=== PATIENT | male | born 1970 | race Caucasian/White ===

== ENCOUNTER 2018-10-13 17:17 | Emergency (ER) | payer OTHER, SELFPAY ==
[2018-10-13 17:18] VITALS: BP 188/110; PULSE 91; RESP 18; TEMP 36.1; O2SAT 99; BMI 31.7
[2018-10-13] MEDS: Naproxen 500 MG Tablet PO (18:03)
--- NOTE | 2018-10-13 18:05 | ED.VISSUMM ---
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 Today a bottle of diesel additive fell over onto his foot around 1130. He noted some itching and burning to his foot. Tonight he noted swelling and some blisters. Product per his report is called [employer] diesel additives. Patient is borderline diabetic with a history of hypertension. Physical Examination: Vital signs significant for blood pressure of 188/110. Patient sitting upright in bed no acute distress. Right lower extremity examination was mild erythema and edema to the toes of the right foot. There are a few superficial ulcerations noted on the anterior second and third toes with a blister noted to the lateral aspect of the second toe. Test Results: [] Emergency Department Course and Treatment: I spoke with poison control. The online safety data sheet is reviewed and it appears that hydrocarbons are the main ingredient. She states there may be some slight skin irritation from this, but should not cause any kind of erosive issues. The nielsen ingredient that she would be concerned about would be hydrofluoric acid and none of these products appear to contain this. She suggested treating the area with a topical burn and covering with antibiotics. If he worsens he is to return and if possible bring the bottle with him so that ingredients can be verified. Treatment Plan: [] Disposition: Discharge Impression: Chemical burn right foot This note was generated with [employer] dictation software. It may contain incorrect words, spelling, and punctuation that were not noted in review of the chart prior to signing ED Disposition - Plan for ED Patient: Chief Complaint: Burn Referrals: Moshe Hicks PA [Primary Care Provider] -
--- NOTE | 2018-10-13 18:09 | ED.DCSUM_ITS ---
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 Today a bottle of diesel additive fell over onto his foot around 1130. He noted some itching and burning to his foot. Tonight he noted swelling and some blisters. Product per his report is called [employer] diesel additives. Patient is borderline diabetic with a history of hypertension. Physical Examination: Vital signs significant for blood pressure of 188/110. Patient sitting upright in bed no acute distress. Right lower extremity examination was mild erythema and edema to the toes of the right foot. There are a few superficial ulcerations noted on the anterior second and third toes with a blister noted to the lateral aspect of the second toe. Test Results: [] Emergency Department Course and Treatment: I spoke with poison control. The online safety data sheet is reviewed and it appears that hydrocarbons are the main ingredient. She states there may be some slight skin irritation from this, but should not cause any kind of erosive issues. The nielsen ingredient that she would be concerned about would be hydrofluoric acid and none of these products appear to contain this. She suggested treating the area with a topical burn and covering with antibiotics. If he worsens he is to return and if possible bring the bottle with him so that ingredients can be verified. Treatment Plan: [] Disposition: Discharge Impression: Chemical burn right foot This note was generated with [employer] dictation software. It may contain incorrect words, spelling, and punctuation that were not noted in review of the chart prior to signing ED Disposition - Plan for ED Patient: Chief Complaint: Burn Referrals: Moshe Hicks PA [Primary Care Provider] -
--- NOTE | 2018-10-13 18:09 | ED.DEP ---
ED Disposition - Plan for ED Patient: Disposition: Home or Assisted Living Chief Complaint: Burn Instructions: ED Burn Chemical Prescriptions: Cephalexin [Keflex] 500 mg PO Q6 #40 capsule Naproxen [Naprosyn] 500 mg PO BID PRN PRN #20 tablet PRN Reason: Pain Smz/Tmp Ds [Bactrim Ds] 1 tablet PO BID #14 tablet Referrals: Jon Donato DO [COURTESY STAFF PHYSICIAN] - 5-7 Days
[2018-10-13] MEDS: Smz/Tmp Ds Tablet 1 TABLET PO (18:20)
[2018-10-13] MEDS: Cephalexin 250 MG Capsule 500 MG PO (18:20)
[2018-10-13 18:27] VITALS: BP 196/116; PULSE 87; RESP 18; O2SAT 94
[2018-10-13 18:33] VITALS: BP 196/116; PULSE 83; RESP 18; O2SAT 99
== END 2018-10-13 18:33 | disposition home or self-care (01) ==
PROVIDERS: Emergency Provider Emergency Medicine; Family Provider Nurse Practitioner Family; PCP Nurse Practitioner Family
DX: T65.891A Toxic effect of other specified substances, accidental (unintentional), initial encounter (principal); T25.421A Corrosion of unspecified degree of right foot, initial encounter; Y93.9 Activity, unspecified; Y92.89 Other specified places as the place of occurrence of the external cause; Y99.9 Unspecified external cause status; I10 Essential (primary) hypertension
CPT/HCPCS: 99283

== ENCOUNTER → 2019-01-27 09:10 | Outpatient (CLI) | payer OTHER, SELFPAY ==
[2019-01-27 10:41] LABS: AST(SGOT) 18 U/L (15-37); Alanine Aminotransfer ALT/SGPT 25 U/L (16-61); Albumin, Serum 3.5 g/dL (3.2-5.0); Alkaline Phosphatase 94 U/L (45-117); Anion Gap 7 (5-15); BUN 5 mg/dL (7-18); BUN/Creat Ratio 5.7 RATIO (10-20); Calcium,Total 8.7 mg/dL (8.5-10.1); Chloride 107 mmol/L (98-107); Cholesterol 142 mg/dL (200); Creatinine, Serum 0.88 mg/dL (0.70-1.30); EST Glomerular Filtration Rate 99 mL/min (>60); Est Glom Filt Rate - Afr Amer 120 mL/min (>60); Globulin 3.4 g/dL (2.2-4.2); Glucose 181 mg/dL (74-106); High Density Lipoprotein 29 mg/dL; Protein, Total 6.9 g/dL (6.4-8.2); Sodium Level 142 mmol/L (136-145); Triglycerides 291 mg/dL; Uric Acid 5.8 mg/dL (3.5-7.2); Very Low Density Lipoprotein 58 mg/dL (5-40)
== END ==
PROVIDERS: Family Provider Nurse Practitioner Family; PCP Nurse Practitioner Family; Referring Provider Nurse Practitioner Family; Visit Provider Nurse Practitioner Family
DX: E11.65 Type 2 diabetes mellitus with hyperglycemia (principal); M25.50 Pain in unspecified joint
CPT/HCPCS: 36415; 80053; 80061; 84550

== ENCOUNTER → 2019-05-11 07:51 | Outpatient (CLI) | payer OTHER, SELFPAY ==
[2019-04-06 06:23] VITALS: BMI 31.7
[2019-05-11 09:20] LABS: Hemoglobin A1c 7.7 % (4.2-6.3)
[2019-05-11 10:11] LABS: AST(SGOT) 22 U/L (15-37); Alanine Aminotransfer ALT/SGPT 25 U/L (16-61); Albumin, Serum 3.2 g/dL (3.2-5.0); Alkaline Phosphatase 98 U/L (45-117); Anion Gap 13 (5-15); BUN 8 mg/dL (7-18); BUN/Creat Ratio 11.6 RATIO (10-20); Chloride 106 mmol/L (98-107); Cholesterol 215 mg/dL (200); Creatinine, Serum 0.69 mg/dL (0.70-1.30); EST Glomerular Filtration Rate 131 mL/min (>60); Est Glom Filt Rate - Afr Amer 158 mL/min (>60); Globulin 3.1 g/dL (2.2-4.2); Glucose 240 mg/dL (74-106); High Density Lipoprotein 22 mg/dL; Potassium 4.1 mmol/L (3.5-5.1); Protein, Total 6.3 g/dL (6.4-8.2); Sodium Level 140 mmol/L (136-145); Triglycerides 1598 mg/dL; Uric Acid 5.4 mg/dL (3.5-7.2)
== END ==
PROVIDERS: Family Provider Nurse Practitioner Family; PCP Nurse Practitioner Family; Referring Provider Nurse Practitioner Family; Visit Provider Nurse Practitioner Family
DX: E11.9 Type 2 diabetes mellitus without complications (principal); E78.5 Hyperlipidemia, unspecified; M25.50 Pain in unspecified joint
CPT/HCPCS: 36415; 80053; 80061; 83036; 84550

== ENCOUNTER → 2019-06-09 09:04 | Outpatient (CLI) | payer OTHER, SELFPAY ==
[2019-04-06 06:23] VITALS: BMI 31.7
[2019-06-09 10:19] LABS: Erythrocyte Sedimentation Rate 6 mm/hr (0-15)
[2019-06-09 10:43] LABS: AST(SGOT) 7 U/L (15-37); Alanine Aminotransfer ALT/SGPT 17 U/L (16-61); Albumin, Serum 3.2 g/dL (3.2-5.0); Alkaline Phosphatase 89 U/L (45-117); Anion Gap 8 (5-15); BUN 6 mg/dL (7-18); BUN/Creat Ratio 7.7 RATIO (10-20); Calcium,Total 8.6 mg/dL (8.5-10.1); Chloride 105 mmol/L (98-107); Cholesterol 150 mg/dL (200); Creatinine, Serum 0.78 mg/dL (0.70-1.30); EST Glomerular Filtration Rate 114 mL/min (>60); Est Glom Filt Rate - Afr Amer 138 mL/min (>60); Globulin 3.3 g/dL (2.2-4.2); Glucose 182 mg/dL (74-106); High Density Lipoprotein 30 mg/dL; Potassium 3.8 mmol/L (3.5-5.1); Protein, Total 6.5 g/dL (6.4-8.2); Rheumatoid Factor < 10.0 IU/mL (<15); Sodium Level 140 mmol/L (136-145); Triglycerides 282 mg/dL; Very Low Density Lipoprotein 56 mg/dL (5-40)
[2019-06-13 11:56] LABS: ANTINUCLEAR ANTIBODIES DIRECT Negative (Negative)
== END ==
PROVIDERS: Family Provider Nurse Practitioner Family; PCP Nurse Practitioner Family; Referring Provider Nurse Practitioner Family; Visit Provider Nurse Practitioner Family
DX: R60.9 Edema, unspecified (principal); E78.5 Hyperlipidemia, unspecified; E11.9 Type 2 diabetes mellitus without complications
CPT/HCPCS: 36415; 80053; 80061; 85652; 86038; 86141; 86431

== ENCOUNTER 2019-06-25 16:22 | Observation (INO) | payer OTHER, SELFPAY ==
[2019-04-06 06:23] VITALS: BMI 31.7
[2019-06-25 16:22] VITALS: BP 168/108; PULSE 100; RESP 16; TEMP 36.7; O2SAT 98; BMI 32.8
--- NOTE | 2019-06-25 16:59 | ED.VIS.GEN ---
History of Present Illness Chief Complaint: Rash Informant: Patient, Significant Other Onset: Days, Weeks Timing: Continuous, Waxes and wanes Quality: Painful red raised rash palms and soles Location: Generalized read narrative Current Severity: Moderate Maximum Severity: Moderate Worsened by: Unknown Relieved by: Nothing Associated Symptoms: Fever and chills, hoarse voice and throat tightness Narrative: Patient is a 48-year-old male with type 2 diabetes on metformin who presents with rash that initially started 6 months ago. The rash got significant he worse on Tuesday. He reports fever, subjective, with shaking chills. He has no risk factors for SBE. He states he is concerned because this afternoon he developed lesions in his mouth feels his throat is tight and his voice is hoarse. He has had no drooling and no difficulty breathing. He denies ocular, visual auditory symptoms. He denies headache. Does complain of head pain where he has lesions. He denies neck pain or neck stiffness. He denies cardiac or respiratory symptoms. He does report nausea and vomiting diarrhea that started on Tuesday as well. He denies urologic symptoms. Prior similar symptoms: Yes Recent Illness/Hospitalization: No - Past Medical History (1) Type 2 diabetes mellitus Status: Acute (2) Essential hypertension Status: Acute Past Medical History - Allergies and Home Meds Allergies/Adverse Reactions: Allergies No Known Allergies Allergy (Verified 06/25/19 16:22) Primary Care Physician: Rebecca Britton NP-C [Primary Care Provider] - Prior records reviewed: Yes Surgical History: no surgical history Lives: Spouse/ Significant Other Smoking Status: Current some day smoker Alcohol: None, Rare Drugs: None Review of Systems General: Reports: Chills, Fever, Malaise, Subjective Eyes: Denies: Visual changes - bilaterally, Blurred Vision - bilaterally ENT: Reports: Sore throat. Denies: Bilateral ear pain Cardiovascular: Denies: Chest pain, Palpitations Gastrointestinal: Reports: Nausea, Vomiting, Diarrhea. Denies: Abdominal pain, Constipation, Melena, Hematochezia, -, - Genitourinary: Denies: Dysuria, Hematuria, Frequency Musculoskeletal: Reports: Extremity Pain. Denies: Myalgias, Arthralgias, Neck pain, Back pain, Swelling, -, - Skin: Reports: Rash, Wounds Neurological: Denies: Headache, Weakness, Parasthesia, Numbness, -, - Hematologic: Denies: Easy bruising, Easy bleeding Allergy: Reports: Swelling of the mouth. Denies: Uticaria, Swelling of the tongue Physical Exam Vital Signs/Narrative: Vital Signs Temp Pulse Resp BP Pulse Ox 06/25/19 16:22 98.1 F 100 16 168/108 H 98 Inital Vital Signs reviewed: Yes General: Well nourished, Well developed, - - Recent appears uncomfortable. Head: Normocephalic, Atraumatic Eyes: Perrl, EOMI, - - There are no subconjunctival lesions noted.. Negative for: Pale conjunctiva, Scleral icterus ENT: Moist mucous membranes, No rhinorrhea, TM's clear, - - She has lesions that are painful on the side of his tongue. There are lesions now appearing on the roof of his mouth and may be one on the buccal surface of his right cheek.. Negative for: Nasal congestion, Sinus tenderness Neck: Negative for: Supple, Nontender, No lymphadenopathy, No JVD, - - He has midline. There is no stridor. There is no carotid bruit. There is no pain the patient over the carotid artery. Cardiovascular: Regular rate, Regular rhythm, No murmurs, Normal S1, Normal S2 Respiratory: No distress, CTA bilaterally, Chest nontender Abdomen: Soft, Nontender, Nondistended, Normal bowel sounds Rectal: Deferred Back: Nontender, Normal Inspection. Negative for: CVA tenderness Extremities: No edema. Negative for: Nontender Skin: Normal color, Rash, - - She has raised erythematous pustular rash soles of his feet and palms of his hands. They are also painful lesions on his tongue. He has erythematous pustules noted popliteal fossa, anterior chest. Neurological: Alert, Oriented x3, Cranial nerves II-XII grossly intact, Normal Strength, Normal Sensation Psychological: Normal affect, Normal Mood Diagnostic/Tx/Re-eval Laboratory Results 06/25/19 06/25/19 06/25/19 17:15 17:15 17:15 WBC 8.8 RBC 4.98 Hgb 15.3 Hct 44.1 MCV 88.6 MCH 30.7 MCHC 34.7 RDW Std Deviation 41.4 RDW Coeff of Pedrito 12.6 Plt Count 260 MPV 8.8 Immature Gran % (Auto) 1.700 H Neut % (Auto) 57.1 Lymph % (Auto) 27.9 Rapides % (Auto) 6.0 Eos % (Auto) 6.8 H Baso % (Auto) 0.5 Absolute Neuts (auto) 5.0 Absolute Lymphs (auto) 2.45 Nucleated RBC % 0 ESR PT 11.8 INR 0.9 APTT 30.4 Sodium 141 Potassium 3.7 Chloride 106 Carbon Dioxide 28.0 Anion Gap 7 BUN 6 L Creatinine 0.73 Estim Creat Clear Calc 126.44 Est GFR (MDRD) Af Amer 149 Est GFR (MDRD) Non-Af 123 BUN/Creatinine Ratio 8.3 L Glucose 153 H Lactic Acid Calcium 9.1 Total Bilirubin 0.30 AST 12 L ALT 25 Alkaline Phosphatase 98 C-React Prot Ext Range Total Protein 7.0 Albumin 3.5 Globulin 3.5 Albumin/Globulin Ratio 1.0 06/25/19 06/25/19 06/25/19 17:15 17:15 17:15 WBC RBC Hgb Hct MCV MCH MCHC RDW Std Deviation RDW Coeff of Pedrito Plt Count MPV Immature Gran % (Auto) Neut % (Auto) Lymph % (Auto) Rapides % (Auto) Eos % (Auto) Baso % (Auto) Absolute Neuts (auto) Absolute Lymphs (auto) Nucleated RBC % ESR 7 PT INR APTT Sodium Potassium Chloride Carbon Dioxide Anion Gap BUN Creatinine Estim Creat Clear Calc Est GFR (MDRD) Af Amer Est GFR (MDRD) Non-Af BUN/Creatinine Ratio Glucose Lactic Acid 1.3 Calcium Total Bilirubin AST ALT Alkaline Phosphatase C-React Prot Ext Range 15.90 H Total Protein Albumin Globulin Albumin/Globulin Ratio Only abnormal lab is C-reactive protein. - Medical Decision Making Spoke with infectious disease because of the involvement of the skin as well as tongue and buccal surface of the mouth. Agreed with lab tests ordered. Agree that unroofing 1 of his pustules would be beneficial. This may represent an autoimmune, this may represent infection which is emboli. Since these are painful would not suspect secondary to endocarditis. No history of travel doubt [place] spotted fever. No children at home doubt hand foot mouth syndrome. This may represent a coxsackievirus since palms of the hand and and soles of the feet are involved. He did have dental work. He states he receives 1 g of penicillin prior to dental work because he has a prosthetic hip. She was reexamined at 2300. He now has hives left shoulder region right anterior arm. The lesions are raised erythematous and pruritic. He also has a bruise epigastric area medial left costal marginal region. He denies history of trauma. Was medicated for the painful lesions. Hospitalist was called. Case was discussed with infectious disease. ED Disposition - Plan for ED Patient: Disposition: Home or Assisted Living Diagnosis: Pustular lesion, Urticaria, Blisters of multiple sites, History of type 2 diabetes mellitus, Essential hypertension Referrals: Rebecca Britton NP-C [Primary Care Provider] -
[2019-06-25 17:24] LABS: Absolute Lymphocyte Count 2.45 X10^3/uL (0.83-4.51); Basophil# 0.04 X10^3/uL; Basophil% 0.5 % (0-1); Eosinophils% 6.8 % (0-5); Hematocrit 44.1 % (40-54); Hemoglobin 15.3 g/dL (13.0-16.5); Lymphocyte # 2.45 X10^3/ul (4.0); Lymphocyte % 27.9 % (19-41); Mean Corp Hgb Conc 34.7 g/dL (32-36); Mean Corpuscular Hgb 30.7 pg (27.0-32.0); Mean Corpuscular Volume 88.6 fL (80-94); Mean Platelet Vol. 8.8 fl (6.2-12.0); Monocyte# 0.53 X10^3/uL; NRBC Flagged by Analyzer 0 % (0-5); Neutrophil % 57.1 % (47-70); Platelet Count 260 K/mm3 (150-450); RBC Distribution Width CV 12.6 % (11.6-14.6); RBC Distribution Width SD 41.4 fl (35.1-43.9); Red Blood Count 4.98 M/mm3 (4.6-6.2); White Blood Count 8.8 K/mm3 (4.4-11.0)
[2019-06-25 17:44] LABS: AST(SGOT) 12 U/L (15-37); Alanine Aminotransfer ALT/SGPT 25 U/L (16-61); Albumin, Serum 3.5 g/dL (3.2-5.0); Alkaline Phosphatase 98 U/L (45-117); Anion Gap 7 (5-15); BUN 6 mg/dL (7-18); BUN/Creat Ratio 8.3 RATIO (10-20); Calcium,Total 9.1 mg/dL (8.5-10.1); Chloride 106 mmol/L (98-107); Creatinine, Serum 0.73 mg/dL (0.70-1.30); EST Glomerular Filtration Rate 123 mL/min (>60); Est Glom Filt Rate - Afr Amer 149 mL/min (>60); Estimated Creatinine Clearance 126.44 ml/min; Globulin 3.5 g/dL (2.2-4.2); Glucose 153 mg/dL (74-106); Potassium 3.7 mmol/L (3.5-5.1); Sodium Level 141 mmol/L (136-145)
[2019-06-25 17:58] LABS: Lactic Acid 1.3 mmol/L (0.4-2.0)
[2019-06-25 18:12] LABS: International Normalized Ratio 0.9; Prothrombin Time (Protime)PT. 11.8 SECONDS (11.7-14.9)
[2019-06-25 18:13] LABS: Partial Thromboplast Time 30.4 Seconds (24.1-36.2)
[2019-06-25 19:37] LABS: Erythrocyte Sedimentation Rate 7 mm/hr (0-15)
[2019-06-25 21:24] VITALS: BP 153/93; PULSE 98; RESP 18; O2SAT 98
--- NOTE | 2019-06-25 23:08 | HP.PCM_ITS ---
Problem List (1) Pustular lesion Status: Acute (2) Type 2 diabetes mellitus Status: Chronic History of Present Illness Date of Admission: 06/25/19 Chief Complaint: rash The patient is a 48 year old M with a significant history of diabetes mellitus; and hypertension who presented with a flare of rash that began 3 days ago. Patient reports diffuse type of rash and also multiple areas of lumps scattered throughout his entire body. Associated with his symptoms is excruciating pain in his bilateral feet and in his bilateral hands. He describes his pain as itching; burning and like a bee sting. He reported that he had so much pain in his feet that he had to be wheeled in a wheelchair while visiting his mother who was in the hospital. He reports swollen of his bilateral feet. He reports itching. He had some diarrhea recently but this has since resolved. His rash has been going on for about 6 months and multiple test and has not shown the etiology of his rash. At home he was taking some pain medicine and Benadryl. Reportedly Benadryl was helping with his itching. He reported not too long ago he had some penile yellow discharge and cloudy urine. He reported he had multiple tests including urinalysis that was unremarkable. Emergency department doctor discussed the case with infectious disease specialist; who will be following the patient inpatient. A Pustular lesion was unroofed and discharge sent to the lab for culture He has had only one sexual partner since 1996 Occupational history: Patient drives a semitruck. Past Medical History Past Medical History (Chronic Problems): Chronic Problems (Last Reviewed 06/26/19 @ 04:47 by Jonathan Monge MD) Type 2 diabetes mellitus (Chronic) Medical History: Medical History (Last Reviewed 06/26/19 @ 04:47 by Jonathan Monge MD) Arthritis M19.90 Hypertension I10 Allergies No Known Allergies Allergy (Verified 06/25/19 16:22) Home Medications: Ambulatory Orders Medication Instructions Recorded Metformin HCl 500 mg PO BID 06/25/19 Surgical History: Surgical History (Last Reviewed 06/26/19 @ 04:56 by Jonathan Monge MD) History of hip replacement Z96.649 Surgical History: herniorrhaphy Lives: Spouse/ Significant Other Smoking Status: Current every day smoker Alcohol: None, Rare Drugs: None - *Family History Maternal History Items: Heart Disease, Hypertension Paternal History Items: Diabetes, Dementia Review of Systems Constitutional: Reports: Fatigue. Denies: Chills, Fever, Weight Change HEENT: Denies: Head Aches, Sinus Congestion, Sinus Drainage Cardiovascular: Denies: Chest Pain, Palpitations Respiratory: Denies: Cough, Shortness of breath at rest, Sputum production Gastrointestinal: Reports: Diarrhea - transient, Nausea. Denies: Abdominal Pain, Vomiting Genitourinary: Denies: Dysuria Musculoskeletal: Reports: Foot Pain, Hand Pain. Denies: Joint Pain Skin: Reports: Skin Changes - Diffuse rash and lumps from head to toe. Denies: Wounds Neurological: Denies: Numbness, Tingling, Focal weakness Psychiatric: Denies: Anxiety, Depression, Homicidal Ideations, Suicidal Ideations Hematologic/ Lymphatic: Denies: Easy Bruising, Easy Bleeding VTE Information - Inpt Only VTE Present on Admission: No VTE Mechan Device Prophylaxis: None VTE Pharm Prophylaxis ordered?: Yes Patient Problems: Active and Suspected Problems (Last Reviewed 06/26/19 @ 04:47 by Jonathan Monge MD) Pustular lesion (Acute) Urticaria (Acute) Blisters of multiple sites (Acute) History of type 2 diabetes mellitus (Acute) Essential hypertension (Acute) - Physical Exam General: Alert, Oriented x3, Cooperative HEENT: Atraumatic, PERRLA, EOMI, Normocephalic Neck: Supple, No JVD, Negative Carotid Bruits Lungs: Clear to auscultation, Normal air movement Cardiovascular: Regular rate, No murmurs Abdomen: Bowel Sounds Present, Soft, Non Tender Extremities: No edema, Capillary Refill Less than 3 Seconds Skin: - - Multiple pustules from head to toe; multiple lumps from head to toe. Musculoskeletal: Tenderness - bilateral feet Neurological: Cranial nerves II-XII grossly intact Psych/Mental Status: Normal Affect, Appropriate Vital Signs Temp Pulse Resp BP Pulse Ox 98.1 F 98 18 153/93 H 98 06/25/19 16:22 06/25/19 21:24 06/25/19 21:24 06/25/19 21:24 06/25/19 21:24 Oxygen Delivery Method Room Air Weight: 100.7 kg Body Mass Index (BMI) 32.8 Laboratory Tests Past 24 Hrs 06/25/19 06/25/19 06/25/19 17:15 17:15 17:15 WBC 8.8 RBC 4.98 Hgb 15.3 Hct 44.1 MCV 88.6 MCH 30.7 MCHC 34.7 RDW Std Deviation 41.4 RDW Coeff of Pedrito 12.6 Plt Count 260 MPV 8.8 Immature Gran % (Auto) 1.700 H Neut % (Auto) 57.1 Lymph % (Auto) 27.9 [place]row % (Auto) 6.0 Eos % (Auto) 6.8 H Baso % (Auto) 0.5 Absolute Neuts (auto) 5.0 Absolute Lymphs (auto) 2.45 Nucleated RBC % 0 ESR PT 11.8 INR 0.9 APTT 30.4 Sodium 141 Potassium 3.7 Chloride 106 Carbon Dioxide 28.0 Anion Gap 7 BUN 6 L Creatinine 0.73 Estim Creat Clear Calc 126.44 Est GFR (MDRD) Af Amer 149 Est GFR (MDRD) Non-Af 123 BUN/Creatinine Ratio 8.3 L Glucose 153 H Lactic Acid Calcium 9.1 Total Bilirubin 0.30 AST 12 L ALT 25 Alkaline Phosphatase 98 C-React Prot Ext Range Total Protein 7.0 Albumin 3.5 Globulin 3.5 Albumin/Globulin Ratio 1.0 06/25/19 06/25/19 06/25/19 17:15 17:15 17:15 WBC RBC Hgb Hct MCV MCH MCHC RDW Std Deviation RDW Coeff of Pedrito Plt Count MPV Immature Gran % (Auto) Neut % (Auto) Lymph % (Auto) [place] % (Auto) Eos % (Auto) Baso % (Auto) Absolute Neuts (auto) Absolute Lymphs (auto) Nucleated RBC % ESR 7 PT INR APTT Sodium Potassium Chloride Carbon Dioxide Anion Gap BUN Creatinine Estim Creat Clear Calc Est GFR (MDRD) Af Amer Est GFR (MDRD) Non-Af BUN/Creatinine Ratio Glucose Lactic Acid 1.3 Calcium Total Bilirubin AST ALT Alkaline Phosphatase C-React Prot Ext Range 15.90 H Total Protein Albumin Globulin Albumin/Globulin Ratio Assessment/Plan All Active Problems (Last Reviewed 06/26/19 @ 04:47 by Jonathan Monge MD) Pustular lesion (Acute) Urticaria (Acute) Blisters of multiple sites (Acute) History of type 2 diabetes mellitus (Acute) Essential hypertension (Acute) The patient is a 48 year old M with a significant history of diabetes mellitus; and hypertension who presented with a flare of a pustular rash and scattered lumps in his entire body from head to toe. Acute Pustular re-occurring rash Noted to have left shift. Etiology is unclear at this time. Order to obtain records from PCPs office. KARELY with reflex antibodies ordered. RPR and gonococcus nucleic acid test ordered Blood cultures were ordered at the emergency department; follow Gram stain and culture of Fluid from rash; follow. Scheduled loratadine for antihistaminic effect ordered. PRN Benadryl ordered. Infectious disease consult. Diabetes mellitus On presentation his blood glucose was within goal. Home metformin held Accu-Chek q. CHS with correction scale insulin. Hypertension On presentation his blood pressure was not within goal. He reported that he was on amlodipine in Benzapril that he has not taken for a while. Will start patient on amlodipine. PRN hydralazine ordered. Tobacco abuse Counseled Nicotine patch ordered. DVT prophylaxis Subcutaneous Lovenox. Code Visit OBSV E&M: 66569 Initial observation care L3
[2019-06-26 00:24] VITALS: BMI 31.2; BMI 31.3
[2019-06-26 00:29] VITALS: BP 173/107; PULSE 108; RESP 16; TEMP 37; O2SAT 97
[2019-06-26] MEDS: amLODIPine 5 MG Tablet PO ×2 (01:09→10:33)
[2019-06-26] MEDS: DiphenhydrAMINE 25 MG Capsule PO ×3 (01:09→12:36)
[2019-06-26] MEDS: Loratadine 10 MG Tablet PO (01:09)
[2019-06-26] MEDS: oxyCODONE 5 MG Tablet PO ×4 (01:09→14:15)
[2019-06-26] MEDS: MELATONIN 3 MG TABLET PO (01:20)
[2019-06-26 05:25] VITALS: BP 140/97; PULSE 102; RESP 16; TEMP 36.6; O2SAT 96
[2019-06-26] MEDS: Insulin Lispro 100 UNIT/ML INSULN.PEN SC ×2 (06:58→12:38)
[2019-06-26 07:05] LABS: Bedside Glucose 163 mg/dL (70-110)
[2019-06-26 07:43] VITALS: O2SAT 95
--- NOTE | 2019-06-26 10:31 | PN_ITS ---
Patient Problems: Active and Suspected Problems (Last Reviewed 06/26/19 @ 04:47 by Jonathan Monge MD) Pustular lesion (Acute) Urticaria (Acute) Blisters of multiple sites (Acute) History of type 2 diabetes mellitus (Acute) Essential hypertension (Acute) Subjective: Presets with worsening rash. Has been off and on for the past 6 months. Started on feet, but now involving hands, scalp and trunk. Painful nodules on hand and feet. Swelling on back. No relieving nor exacerbating factors. Vitals/I&O's: Vital Signs Temp Pulse Resp BP Pulse Ox 36.6 C 102 H 16 140/97 H 95 06/26/19 05:25 06/26/19 05:25 06/26/19 05:25 06/26/19 05:25 06/26/19 07:43 Oxygen Delivery Method Room Air Weight: 96.1 kg Body Mass Index (BMI) 31.2 Intake and Output for Last 24 Hours 06/24/19 06/25/19 06/26/19 23:59 23:59 23:59 Intake Total 650 / 650 Balance 650 / 650 General: Alert, No apparent distress HEENT: Atraumatic, Normocephalic Lungs: Clear to auscultation, Normal air movement, No rhonchi, No wheeze, No rales Cardiovascular: Regular rate, Regular Rhythm, Normal S1, Normal S2, No murmurs Abdomen: Bowel Sounds Present, Soft, Non Tender, Non-Distended Extremities: No edema, No Calf Tenderness Skin: - - nodules on palmar aspects of hands and soles of feet. macular rash in axilla, trank. swelling on back and right upper buttocks. Musculoskeletal: No Tenderness to Palpation of Joints or Extremities, No Muscle Wasting Psych/Mental Status: Normal Affect, Appropriate Microbiology Past 72 Hours 06/25/19 15:40 Wound - Left Foot Gram Stain - Final Laboratory Results 06/25/19 17:15: WBC 8.8, RBC 4.98, Hgb 15.3, Hct 44.1, MCV 88.6, MCH 30.7, MCHC 34.7, RDW Std Deviation 41.4, RDW Coeff of Pedrito 12.6, Plt Count 260, MPV 8.8, Immature Gran % (Auto) 1.700 H, Neut % (Auto) 57.1, Lymph % (Auto) 27.9, Harding % (Auto) 6.0, Eos % (Auto) 6.8 H, Baso % (Auto) 0.5, Absolute Neuts (auto) 5.0, Absolute Lymphs (auto) 2.45, Nucleated RBC % 0 06/25/19 17:15: PT 11.8, INR 0.9, APTT 30.4 06/25/19 17:15: Sodium 141, Potassium 3.7, Chloride 106, Carbon Dioxide 28.0, Anion Gap 7, BUN 6 L, Creatinine 0.73, Estim Creat Clear Calc 126.44, Est GFR (MDRD) Af Amer 149, Est GFR (MDRD) Non-Af 123, BUN/Creatinine Ratio 8.3 L, Glucose 153 H, Calcium 9.1, Total Bilirubin 0.30, AST 12 L, ALT 25, Alkaline Phosphatase 98, Total Protein 7.0, Albumin 3.5, Globulin 3.5, Albumin/Globulin Ratio 1.0 06/25/19 17:15: Lactic Acid 1.3 06/25/19 17:15: ESR 7 06/25/19 17:15: C-React Prot Ext Range 15.90 H 06/26/19 05:05: RPR Pending 06/26/19 05:05: KARELY Screen Pending, PAMELA-1 Antibody Pending, SS-A/Ro IgG Antibody Pending, SS-B/La IgG Antibody Pending, Sm (Roth) Antibody Pending, RAWHIDE TRIMMER Antibody Pending, Scl-70 Scleroderma Ab Pending, Double Strand DNA Ab Pending, Centromere B Antibody Pending 06/26/19 06:52: POC Glucose 163 H Current Medications Acetaminophen (Tylenol) 650 mg PO Q6H PRN PRN PRN Reason: Mild Pain (1-3)/Temp > 100.7 F Amlodipine Besylate (Norvasc) 5 mg PO DAILY MARCI Last Admin: 06/26/19 01:09 Dose: 5 mg Documented by: Dextrose (D50w Syringe) 0 gm IV X1 PRN; Protocol PRN Reason: Hypoglycemia Diphenhydramine HCl (Benadryl) 25 mg PO Q6H PRN PRN PRN Reason: ITCHING Last Admin: 06/26/19 06:53 Dose: 25 mg Documented by: Enoxaparin Sodium (Lovenox) 40 mg SC DAILY@1000 MARCI Glucagon () 1 mg IM .X1 PRN PRN Reason: Hypoglycemia Hydralazine HCl (Apresoline Iv) 5 mg IV Q4H PRN PRN PRN Reason: sbp > 160 Insulin Human Lispro (Humalog Kwikpen (Bkc)) 0 unit SC ACHS MARCI; Protocol Last Admin: 06/26/19 06:58 Dose: 1 units Documented by: Loratadine (Claritin) 10 mg PO DAILY MARCI Last Admin: 06/26/19 01:09 Dose: 10 mg Documented by: Melatonin (Melatonin) 3 mg PO QHS PRN PRN PRN Reason: INSOMNIA Last Admin: 06/26/19 01:20 Dose: 3 mg Documented by: Nicotine (Nicoderm Cq (Pbkc)) 14 mg TRANSDERM. DAILY MARCI Last Admin: 06/26/19 05:14 Dose: 14 mg Documented by: Oxycodone HCl (Oxyir) 5 mg PO Q4H PRN PRN PRN Reason: Moderate and severe pain Last Admin: 06/26/19 10:09 Dose: 5 mg Documented by: Sodium Chloride () 10 - 40 ml IV UD PRN PRN Reason: SALINE FLUSH Medical Necessity - Tobacco Use Smoking Status: Current every day smoker Assessment/Plan All Active Problems (Last Reviewed 06/26/19 @ 04:47 by Jonathan Monge MD) Pustular lesion (Acute) Urticaria (Acute) Blisters of multiple sites (Acute) History of type 2 diabetes mellitus (Acute) Essential hypertension (Acute) 1. rash: * suspect autoimmune v allergic * await ID input * General surgery for Bx * RF and KARELY previously negative. * anti-PAMELA-1, SS-A, SS-B, Roth, RAWHIDE TRIMMER, Scl-70, DS DNA, Centromere B pending. * Start prednisone (after biopsy) * follow up with dermatology * may need referral to Rheum and allergy * Remove regular detergent, use Dreft instead. Stop fabric softeners * Epi-pen in event of anaphylaxis * continue to hold metformin, though unlike etiology * has not taken his BP med, amlodipine/benzapril in 2-3 weeks, and unlikely etiology 2. Hypertriglyceridemia * doubt contributing to above. * recommend avoiding processed foods. Greater than 40 minutes, of which greater than 50% of time was discussing work up for rash and possibilities. Code Visit OBSV E&M: 82780 Subsequent observation care L3
[2019-06-26] MEDS: Enoxaparin 40 MG/0.4 ML Syringe SC (10:33)
--- NOTE | 2019-06-26 10:51 | PCA ---
SENT REQUEST FOR MEDICAL RECORDS TO THE PHYSICANS OFFICE IN [facility] RECEIVED ANYTHING BACK AT THIS TIME
--- NOTE | 2019-06-26 11:35 | PCM.HP.ID ---
Reason for Consult: rash Consulted by: Dr. Lopez History of Present Illness: The patient is a 48 year old M with h/o DM, presented with several days of very painful burning/sharp pain on hands and feet, also sore on tongue. C/o diffuse aches throughout his body, rash/itching on back, upper arms. Has been having intermittent rash/itching/aches for past 6 months. Some chills over past few weeks, some diarrhea for past few weeks. No blood in stool, some dark/tarry stool, but has been taking peptobismal. No tick bites, does not hike/corw/spend time in tick areas. No new sex partners. Has a dog at home. 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 No kids at home. Lives with his who is asymptomatic. No consistency between length of these flares, remission between flares, and work schedule. No weight loss. Had prior foot involvement with some blistering, hand and mouth involvement is new. Rashes and aches typically resolve on their own after a period of time. Denies new meds, has not taken any abx for this. No skin biopsy. Has been seeing PCP for this, but rash is usually resolved by the time the appt comes. Does report episode about 2-3 months ago when he had some purulent drainage from his penis, and urine looked like it had tiny flecks of toilet paper floating in it. Had STI work-up which was reportedly negative. Due to pain, came to ED last night. Bcx drawn, blister was unroofed and cultured. No abx started. Full ROS performed and neg except as noted above. - Medical History Past Medical History (Chronic Problems): Chronic Problems (Last Reviewed 06/26/19 @ 04:47 by Jonathan Monge MD) Type 2 diabetes mellitus (Chronic) Allergies/Adverse Reactions: Allergies No Known Allergies Allergy (Verified 06/25/19 16:22) Home Medications: Ambulatory Orders Medication Instructions Recorded Metformin HCl 500 mg PO BID 06/25/19 - Social History Tobacco Use: cigarettes Vital Signs Temp Pulse Resp BP Pulse Ox 97.9 F 102 H 16 140/97 H 95 06/26/19 05:25 06/26/19 05:25 06/26/19 05:25 06/26/19 05:25 06/26/19 07:43 Oxygen Delivery Method Room Air Weight: 96.1 kg Body Mass Index (BMI) 31.2 Microbiology Past 72 Hours 06/25/19 15:40 Gram Stain - Final Wound - Left Foot Laboratory Tests Past 24 Hrs 06/25/19 06/25/19 06/25/19 17:15 17:15 17:15 WBC 8.8 RBC 4.98 Hgb 15.3 Hct 44.1 MCV 88.6 MCH 30.7 MCHC 34.7 RDW Std Deviation 41.4 RDW Coeff of Pedrito 12.6 Plt Count 260 MPV 8.8 Immature Gran % (Auto) 1.700 H Neut % (Auto) 57.1 Lymph % (Auto) 27.9 [place] % (Auto) 6.0 Eos % (Auto) 6.8 H Baso % (Auto) 0.5 Absolute Neuts (auto) 5.0 Absolute Lymphs (auto) 2.45 Nucleated RBC % 0 ESR PT 11.8 INR 0.9 APTT 30.4 Sodium 141 Potassium 3.7 Chloride 106 Carbon Dioxide 28.0 Anion Gap 7 BUN 6 L Creatinine 0.73 Estim Creat Clear Calc 126.44 Est GFR (MDRD) Af Amer 149 Est GFR (MDRD) Non-Af 123 BUN/Creatinine Ratio 8.3 L Glucose 153 H Lactic Acid Calcium 9.1 Total Bilirubin 0.30 AST 12 L ALT 25 Alkaline Phosphatase 98 C-React Prot Ext Range Total Protein 7.0 Albumin 3.5 Globulin 3.5 Albumin/Globulin Ratio 1.0 KARELY Screen PAMELA-1 Antibody SS-A/Ro IgG Antibody SS-B/La IgG Antibody Sm (Roth) Antibody ELECTRIC TRAIN DRIVER Antibody Scl-70 Scleroderma Ab Double Strand DNA Ab Centromere B Antibody RPR 06/25/19 06/25/19 06/25/19 17:15 17:15 17:15 WBC RBC Hgb Hct MCV MCH MCHC RDW Std Deviation RDW Coeff of Pedrito Plt Count MPV Immature Gran % (Auto) Neut % (Auto) Lymph % (Auto) [place] % (Auto) Eos % (Auto) Baso % (Auto) Absolute Neuts (auto) Absolute Lymphs (auto) Nucleated RBC % ESR 7 PT INR APTT Sodium Potassium Chloride Carbon Dioxide Anion Gap BUN Creatinine Estim Creat Clear Calc Est GFR (MDRD) Af Amer Est GFR (MDRD) Non-Af BUN/Creatinine Ratio Glucose Lactic Acid 1.3 Calcium Total Bilirubin AST ALT Alkaline Phosphatase C-React Prot Ext Range 15.90 H Total Protein Albumin Globulin Albumin/Globulin Ratio KARELY Screen PAMELA-1 Antibody SS-A/Ro IgG Antibody SS-B/La IgG Antibody Sm (Roth) Antibody ELECTRIC TRAIN DRIVER Antibody Scl-70 Scleroderma Ab Double Strand DNA Ab Centromere B Antibody RPR 06/26/19 06/26/19 05:05 05:05 WBC RBC Hgb Hct MCV MCH MCHC RDW Std Deviation RDW Coeff of Pedrito Plt Count MPV Immature Gran % (Auto) Neut % (Auto) Lymph % (Auto) [place] % (Auto) Eos % (Auto) Baso % (Auto) Absolute Neuts (auto) Absolute Lymphs (auto) Nucleated RBC % ESR PT INR APTT Sodium Potassium Chloride Carbon Dioxide Anion Gap BUN Creatinine Estim Creat Clear Calc Est GFR (MDRD) Af Amer Est GFR (MDRD) Non-Af BUN/Creatinine Ratio Glucose Lactic Acid Calcium Total Bilirubin AST ALT Alkaline Phosphatase C-React Prot Ext Range Total Protein Albumin Globulin Albumin/Globulin Ratio KARELY Screen Pending PAMELA-1 Antibody Pending SS-A/Ro IgG Antibody Pending SS-B/La IgG Antibody Pending Sm (Roth) Antibody Pending ELECTRIC TRAIN DRIVER Antibody Pending Scl-70 Scleroderma Ab Pending Double Strand DNA Ab Pending Centromere B Antibody Pending RPR Pending - Other Studies Radiology: [] Other Studies: [] Route of nutrition/ use of supplements: [] Nutritional Intake: [] IV Site: [] Young Catheter: [] - Physical Exam General: Alert, Oriented x3, Cooperative, No apparent distress HEENT: Atraumatic, PERRLA, EOMI, - - some erosion on upper palate, small ulcer on R tongue Neck: Supple, No Nodes Lungs: Clear to auscultation, Normal air movement Cardiovascular: Regular rate, Regular Rhythm, No murmurs Abdomen: Soft, Non Tender, Non-Distended Extremities: No edema Skin: - - Nonblanching, tender, pruritic macules on palms and soles. Distal feet with some bullae. Scattered dark macules on wrists and ankles with some central umbilication. Trunk and upper arms with painful pruritic red plaques, confluent over upper back. Single pustule on back below R axilla. Musculoskeletal: No Tenderness to Palpation of Joints or Extremities Neurological: Cranial nerves II-XII grossly intact - Assessment/Plan Antibiotics: [] Assessment/Plan: [] Active and Suspected Problems (Last Reviewed 06/26/19 @ 04:47 by Jonathan Monge MD) Pustular lesion (Acute) Urticaria (Acute) Blisters of multiple sites (Acute) History of type 2 diabetes mellitus (Acute) Essential hypertension (Acute) Given the timing of his symptoms and appearance of his different rashes, suspect multiple processes going on. Acute presentation may most likely be [id number] but wouldn't explain 6 months of intermittent aches, itching, rash. Will check hiv, hep C, and coxsackie. RPR and autoimmune work-up pending. Recommend skin biopsy of his back and derm referral. Agree with not starting abx. No fever, no headache, no tick bites, and no lab abnormalities, so overall low suspicion for RMSF. Will follow, thank you. D/w Dr. Lopez.
--- NOTE | 2019-06-26 11:46 | LES_PTH ---
PATIENT: SAIMA AMAYA LOC: [facility] U#:[id number] AGE/SX: 48/M ROOM: [facility]313 RE06/25/[address]: Dr. Richard Lopez DO : 1970 BED: 1 DIS: 06/26/2019 SPEC #: [id number] RECD: 06/26/19 12:12 STATUS: ANGELA REEdith #: [id number] BENJY: 06/26/19 11:[address]: Christophe Little DEPT: SURGICAL PATHOLOGY RECD BY: Sumeet Madrigal ENTERED: 06/26/19 13:20 SP TYPE: Lesion OTHR DR: MD Dr. Richard Maynard DO Dr. Joseph Agyepong, MD Dr. Robert Leininger, MD Lindsey Lorson, DRUM OPERATOR-C Tissues: Skin of back, NOS Procedures: Special Stain Group I Surgery Specimen Level IV GMS Stain (control) Comments: @ Ordering doctor for SUIV edited from to @ elvira HARPER at 06/26/19 1443 @ Submitting doctor edited from to @ by LEROY at 06/26/19 1443 HEADER OPERATION: Skin punch biopsy back, right upper PRE-OP DIAGNOSIS: Rash TISSUE SUBMITTED: Back skin punch biopsy MICROSCOPIC DIAGNOSIS Skin lesion of back, punch biopsy: Minimal superficial and perivascular chronic dermatitis. No evidence of malignancy. Negative for fungal organisms. See comment. AM:ross 06/27/19 COMMENT GMS stain with matched control supports the above diagnosis. MICROSCOPIC DESCRIPTION Slides are reviewed. GROSS DESCRIPTION Received is one container labeled with the patient's name and not further designated. The specimen consists of two punch biopsies of mancilla-white skin each measuring 0.2 cm in diameter and 0.4 cm in length. The entire specimen is submitted in one cassette. / SJ:ross 06/26/19 TC:3 CPT: 22705, 28597
[2019-06-26] MEDS: Acetaminophen 325 MG Tablet 650 MG PO (11:56)
[2019-06-26 13:35] LABS: Bedside Glucose 253 mg/dL (70-110)
--- NOTE | 2019-06-26 13:39 | PCM.CONS.GEN ---
Problem List (1) Pustular lesion Status: Acute (2) Blisters of multiple sites Status: Acute Reason for Consult Date of Consultation: 06/26/19 Reason for Consultation: Skin lesions and rash History of Present Illness: The patient is a 48 year old M who presented with rash on his back and axilla. He is also having spots forming on his hands and feet. He also has a lesion on his tongue. He does not report any fevers or chills. Past Medical History Past Medical History (Chronic Problems): Chronic Problems (Last Reviewed 06/26/19 @ 04:47 by Jonathan Monge MD) Type 2 diabetes mellitus (Chronic) Medical History: Medical History (Last Reviewed 06/26/19 @ 04:47 by Jonathan Monge MD) Arthritis M19.90 Hypertension I10 Allergies No Known Allergies Allergy (Verified 06/25/19 16:22) Home Medications: Ambulatory Orders Medication Instructions Recorded Metformin HCl 500 mg PO BID 06/25/19 Surgical History: Surgical History (Last Reviewed 06/26/19 @ 04:56 by Jonathan Monge MD) History of hip replacement Z96.649 Surgical History: herniorrhaphy Lives: Spouse/ Significant Other Smoking Status: Current every day smoker Alcohol: None, Rare Drugs: None - *Family History Maternal History Items: Heart Disease, Hypertension Paternal History Items: Diabetes, Dementia Review of Systems Constitutional: Denies: Anorexia, Chills, Fever HEENT: Denies: Difficulty Swallowing Cardiovascular: Denies: Chest Pain Respiratory: Denies: Cough, Shortness of Breath Skin: Reports: Lesions, Rash, Skin Changes Hematologic/ Lymphatic: Denies: Anemia Patient Problems: Active and Suspected Problems (Last Reviewed 06/26/19 @ 04:47 by Jonathan Monge MD) Pustular lesion (Acute) Urticaria (Acute) Blisters of multiple sites (Acute) History of type 2 diabetes mellitus (Acute) Essential hypertension (Acute) - Physical Exam General: Alert, Oriented x3 Neck: No JVD Cardiovascular: Regular rate, Regular Rhythm Abdomen: Soft, Non Tender Skin: Rash Present Musculoskeletal: No Muscle Wasting Vital Signs Temp Pulse Resp BP Pulse Ox 97.9 F 102 H 16 140/97 H 95 06/26/19 05:25 06/26/19 05:25 06/26/19 05:25 06/26/19 05:25 06/26/19 07:43 Oxygen Delivery Method Room Air Weight: 211 lb 13.828 oz Body Mass Index (BMI) 31.2 Intake and Output for Last 24 Hours 06/24/19 06/25/19 06/26/19 23:59 23:59 23:59 Intake Total 650 / 650 Balance 650 / 650 Microbiology Past 72 Hours 06/25/19 15:40 Gram Stain - Final Wound - Left Foot Wound Culture - Preliminary Gram positive organism Laboratory Tests Past 24 Hrs 06/25/19 06/25/19 06/25/19 17:15 17:15 17:15 WBC 8.8 RBC 4.98 Hgb 15.3 Hct 44.1 MCV 88.6 MCH 30.7 MCHC 34.7 RDW Std Deviation 41.4 RDW Coeff of Pedrito 12.6 Plt Count 260 MPV 8.8 Immature Gran % (Auto) 1.700 H Neut % (Auto) 57.1 Lymph % (Auto) 27.9 [place] % (Auto) 6.0 Eos % (Auto) 6.8 H Baso % (Auto) 0.5 Absolute Neuts (auto) 5.0 Absolute Lymphs (auto) 2.45 Nucleated RBC % 0 ESR PT 11.8 INR 0.9 APTT 30.4 Sodium 141 Potassium 3.7 Chloride 106 Carbon Dioxide 28.0 Anion Gap 7 BUN 6 L Creatinine 0.73 Estim Creat Clear Calc 126.44 Est GFR (MDRD) Af Amer 149 Est GFR (MDRD) Non-Af 123 BUN/Creatinine Ratio 8.3 L Glucose 153 H Lactic Acid Calcium 9.1 Total Bilirubin 0.30 AST 12 L ALT 25 Alkaline Phosphatase 98 C-React Prot Ext Range Total Protein 7.0 Albumin 3.5 Globulin 3.5 Albumin/Globulin Ratio 1.0 KARELY Screen PAMELA-1 Antibody SS-A/Ro IgG Antibody SS-B/La IgG Antibody Sm (Roth) Antibody ROTO MIXER OPERATOR Antibody Scl-70 Scleroderma Ab Double Strand DNA Ab Centromere B Antibody RPR [place] Type A(2) Ab [place] Type A(4) Ab [place] Type A(7) Ab [place] Type A(9) Ab [place] Type A(10) Ab [place] Type A(16) Ab [place] Type A Interp Hepatitis C Antibody HIV 1&2 Antibody 06/25/19 06/25/19 06/25/19 17:15 17:15 17:15 WBC RBC Hgb Hct MCV MCH MCHC RDW Std Deviation RDW Coeff of Pedrito Plt Count MPV Immature Gran % (Auto) Neut % (Auto) Lymph % (Auto) [place] % (Auto) Eos % (Auto) Baso % (Auto) Absolute Neuts (auto) Absolute Lymphs (auto) Nucleated RBC % ESR 7 PT INR APTT Sodium Potassium Chloride Carbon Dioxide Anion Gap BUN Creatinine Estim Creat Clear Calc Est GFR (MDRD) Af Amer Est GFR (MDRD) Non-Af BUN/Creatinine Ratio Glucose Lactic Acid 1.3 Calcium Total Bilirubin AST ALT Alkaline Phosphatase C-React Prot Ext Range 15.90 H Total Protein Albumin Globulin Albumin/Globulin Ratio KARELY Screen PAMELA-1 Antibody SS-A/Ro IgG Antibody SS-B/La IgG Antibody Sm (Roth) Antibody ROTO MIXER OPERATOR Antibody Scl-70 Scleroderma Ab Double Strand DNA Ab Centromere B Antibody RPR [place] Type A(2) Ab [place] Type A(4) Ab [place] Type A(7) Ab [place] Type A(9) Ab [place] Type A(10) Ab [place] Type A(16) Ab [place] Type A Interp Hepatitis C Antibody HIV 1&2 Antibody 06/26/19 06/26/19 06/26/19 05:05 05:05 12:45 WBC RBC Hgb Hct MCV MCH MCHC RDW Std Deviation RDW Coeff of Pedrito Plt Count MPV Immature Gran % (Auto) Neut % (Auto) Lymph % (Auto) [place] % (Auto) Eos % (Auto) Baso % (Auto) Absolute Neuts (auto) Absolute Lymphs (auto) Nucleated RBC % ESR PT INR APTT Sodium Potassium Chloride Carbon Dioxide Anion Gap BUN Creatinine Estim Creat Clear Calc Est GFR (MDRD) Af Amer Est GFR (MDRD) Non-Af BUN/Creatinine Ratio Glucose Lactic Acid Calcium Total Bilirubin AST ALT Alkaline Phosphatase C-React Prot Ext Range Total Protein Albumin Globulin Albumin/Globulin Ratio KARELY Screen Pending PAMELA-1 Antibody Pending SS-A/Ro IgG Antibody Pending SS-B/La IgG Antibody Pending Sm (Roth) Antibody Pending ROTO MIXER OPERATOR Antibody Pending Scl-70 Scleroderma Ab Pending Double Strand DNA Ab Pending Centromere B Antibody Pending RPR Pending [place] Type A(2) Ab [place] Type A(4) Ab [place] Type A(7) Ab [place] Type A(9) Ab [place] Type A(10) Ab [place] Type A(16) Ab [place] Type A Interp Hepatitis C Antibody Pending HIV 1&2 Antibody Pending 06/26/19 12:45 WBC RBC Hgb Hct MCV MCH MCHC RDW Std Deviation RDW Coeff of Pedrito Plt Count MPV Immature Gran % (Auto) Neut % (Auto) Lymph % (Auto) [place] % (Auto) Eos % (Auto) Baso % (Auto) Absolute Neuts (auto) Absolute Lymphs (auto) Nucleated RBC % ESR PT INR APTT Sodium Potassium Chloride Carbon Dioxide Anion Gap BUN Creatinine Estim Creat Clear Calc Est GFR (MDRD) Af Amer Est GFR (MDRD) Non-Af BUN/Creatinine Ratio Glucose Lactic Acid Calcium Total Bilirubin AST ALT Alkaline Phosphatase C-React Prot Ext Range Total Protein Albumin Globulin Albumin/Globulin Ratio KARELY Screen PAMELA-1 Antibody SS-A/Ro IgG Antibody SS-B/La IgG Antibody Sm (Roth) Antibody ROTO MIXER OPERATOR Antibody Scl-70 Scleroderma Ab Double Strand DNA Ab Centromere B Antibody RPR [place] Type A(2) Ab Pending [place] Type A(4) Ab Pending [place] Type A(7) Ab Pending [place] Type A(9) Ab Pending [place] Type A(10) Ab Pending [place] Type A(16) Ab Pending [place] Type A Interp Pending Hepatitis C Antibody HIV 1&2 Antibody POC Glucose 06/26/19 06/26/19 12:35 06:52 POC Glucose 253 H 163 H Assessment/Plan All Active Problems (Last Reviewed 06/26/19 @ 04:47 by Jonathan Monge MD) Pustular lesion (Acute) Urticaria (Acute) Blisters of multiple sites (Acute) History of type 2 diabetes mellitus (Acute) Essential hypertension (Acute) 48-year-old male with skin rash 1. The patient has a rash on his back which is excoriated and very inflamed with cellulitis and it was tender. I was asked to perform a skin biopsy of these areas. Patient also has lesions on the palms of his hands and the soles of his feet. 2. After obtaining consent an area of his back was prepped with Betadine. 2 areas were anesthetized with lidocaine and a 3 mm punch biopsy was used to take samples. These were sent for pathology. The incisions were closed with 3-0 chromic sutures and bandages were applied. Patient tolerated the procedure well. Christophe Little MD Pager: [facility] [address] [place] [address] Office:
[2019-06-26] MEDS: predniSONE 20 MG Tablet 40 MG PO (14:11)
--- NOTE | 2019-06-26 14:53 | DCINST_ITS ---
- Discharge Diagnoses Current Active Problems: Current Active and Chronic Problems (Last Reviewed 06/26/19 @ 04:47 by Jonathan Monge MD) Type 2 diabetes mellitus (Chronic) Pustular lesion (Acute) Urticaria (Acute) Blisters of multiple sites (Acute) History of type 2 diabetes mellitus (Acute) Essential hypertension (Acute) You will use the following diet at home:: Calorie/Carbohydrate Controlled (specify 1200, 1400, etc) - 1800 Your food should be the consistency of: Regular Discharge Activity: Return to Normal Activity Call your doctor if you observe: - - Worsening rash. Swelling of the lips. Trouble breathing. Allergies/Adverse Reactions: Allergies No Known Allergies Allergy (Verified 06/25/19 16:22) Medications to take at Discharge Amlodipine [Norvasc] 5 mg PO DAILY #30 tab 06/26/19 DiphenhydrAMINE [Benadryl] 25 mg PO Q6H PRN PRN capsule 06/26/19 Epi Pen (for allergic rxn) 0.3 mg IM X1 PRN #1 syringe 06/26/19 Loratadine [Claritin] 10 mg PO DAILY tablet 06/26/19 Prednisone 10 mg PO DAILY #30 tab.ds.pk 06/26/19 The following prescriptions were given: Epi Pen (for allergic rxn) 0.3 mg IM X1 PRN #1 syringe PRN Reason: angioedema/anaphylaxis Transmission Status: Pending to [facility] Amlodipine [Norvasc] 5 mg PO DAILY #30 tab Transmission Status: Pending to [facility] Prednisone 10 mg PO DAILY #30 tab.ds.pk Transmission Status: Pending to [facility] Primary Care Physician: Rebecca Britton NP-C [Primary Care Provider] - Within 1 Week Test Results: Test results from this visit will be discussed in further detail at your follow- up appointment, if applicable. Please Follow Up With: Kurtis Addison - Dermatology When: call for appointment [phone] Proposed Discharge Date: 06/26/19
--- NOTE | 2019-06-26 14:57 | DS.PCM_ITS ---
Discharge Date and Diagnosis - Problem List Patient Problems: Active and Suspected Problems (Last Reviewed 06/26/19 @ 04:47 by Jonathan Monge MD) Pustular lesion (Acute) Urticaria (Acute) Blisters of multiple sites (Acute) History of type 2 diabetes mellitus (Acute) Essential hypertension (Acute) Date of Admission: 06/25/19 Date of Discharge: 06/26/19 - Primary Discharge Diagnosis Active and Suspected Problems (Last Reviewed 06/26/19 @ 04:47 by Jonathan Monge MD) Pustular lesion (Acute) Urticaria (Acute) Blisters of multiple sites (Acute) History of type 2 diabetes mellitus (Acute) Essential hypertension (Acute) - Secondary Discharge Diagnosis Chronic Problems (Last Reviewed 06/26/19 @ 04:47 by Jontahan Monge MD) Type 2 diabetes mellitus (Chronic) Hospital Course and Treatment Saskia Little: surgery Operations: - - biopsies Summary of Care Provided: The patient is a 48 year old M presents with a rash. [] 1. rash: * suspect autoimmune v allergic * seen by ID: not felt to be infectious * General surgery performed skin biopsies. Follow up with PCP for results of biopsies as well as rheumatalgic work up. * RF and KARELY previously negative. * anti-PAMELA-1, SS-A, SS-B, Roth, SENIOR SHAREPOINT ARCHITECT, Scl-70, DS DNA, Centromere B pending. * Start prednisone (after biopsy), taper over 2 weeks * follow up with dermatology (number given for Kurtissherron Addison) * may need referral to Rheum and allergy * Remove regular detergent, use Dreft instead. Stop fabric softeners * Epi-pen in event of anaphylaxis * continue to hold metformin, though unlike etiology * has not taken his BP med, amlodipine/benzapril in 2-3 weeks, and unlikely etiology 2. Hypertriglyceridemia * doubt contributing to above. * recommend avoiding processed foods. 3. HTN: amlodipine. Patient Problems: Active and Suspected Problems (Last Reviewed 06/26/19 @ 04:47 by Jonathan Monge MD) Pustular lesion (Acute) Urticaria (Acute) Blisters of multiple sites (Acute) History of type 2 diabetes mellitus (Acute) Essential hypertension (Acute) - Physical Exam Vital Signs Temp Pulse Resp BP Pulse Ox 36.6 C 102 H 16 140/97 H 95 06/26/19 05:25 06/26/19 05:25 06/26/19 05:25 06/26/19 05:25 06/26/19 07:43 Oxygen Delivery Method Room Air Weight: 96.1 kg Body Mass Index (BMI) 31.2 Intake and Output for Last 24 Hours 06/24/19 06/25/19 06/26/19 23:59 23:59 23:59 Intake Total 650 / 650 Balance 650 / 650 Microbiology Past 72 Hours 06/25/19 15:40 Gram Stain - Final Wound - Left Foot Wound Culture - Preliminary Gram positive organism Laboratory Tests Past 24 Hrs 06/25/19 06/25/19 06/25/19 17:15 17:15 17:15 WBC 8.8 RBC 4.98 Hgb 15.3 Hct 44.1 MCV 88.6 MCH 30.7 MCHC 34.7 RDW Std Deviation 41.4 RDW Coeff of Pedrito 12.6 Plt Count 260 MPV 8.8 Immature Gran % (Auto) 1.700 H Neut % (Auto) 57.1 Lymph % (Auto) 27.9 [place] % (Auto) 6.0 Eos % (Auto) 6.8 H Baso % (Auto) 0.5 Absolute Neuts (auto) 5.0 Absolute Lymphs (auto) 2.45 Nucleated RBC % 0 ESR PT 11.8 INR 0.9 APTT 30.4 Sodium 141 Potassium 3.7 Chloride 106 Carbon Dioxide 28.0 Anion Gap 7 BUN 6 L Creatinine 0.73 Estim Creat Clear Calc 126.44 Est GFR (MDRD) Af Amer 149 Est GFR (MDRD) Non-Af 123 BUN/Creatinine Ratio 8.3 L Glucose 153 H Lactic Acid Calcium 9.1 Total Bilirubin 0.30 AST 12 L ALT 25 Alkaline Phosphatase 98 C-React Prot Ext Range Total Protein 7.0 Albumin 3.5 Globulin 3.5 Albumin/Globulin Ratio 1.0 KARELY Screen PAMELA-1 Antibody SS-A/Ro IgG Antibody SS-B/La IgG Antibody Sm (Roth) Antibody SENIOR SH[employer] ARCHITECT Antibody Scl-70 Scleroderma Ab Double Strand DNA Ab Centromere B Antibody RPR [place] Type A(2) Ab [place] Type A(4) Ab [place] Type A(7) Ab [place] Type A(9) Ab [place] Type A(10) Ab [place] Type A(16) Ab [place] Type A Interp Hepatitis C Antibody HIV 1&2 Antibody 06/25/19 06/25/19 06/25/19 17:15 17:15 17:15 WBC RBC Hgb Hct MCV MCH MCHC RDW Std Deviation RDW Coeff of Pedrito Plt Count MPV Immature Gran % (Auto) Neut % (Auto) Lymph % (Auto) [place] % (Auto) Eos % (Auto) Baso % (Auto) Absolute Neuts (auto) Absolute Lymphs (auto) Nucleated RBC % ESR 7 PT INR APTT Sodium Potassium Chloride Carbon Dioxide Anion Gap BUN Creatinine Estim Creat Clear Calc Est GFR (MDRD) Af Amer Est GFR (MDRD) Non-Af BUN/Creatinine Ratio Glucose Lactic Acid 1.3 Calcium Total Bilirubin AST ALT Alkaline Phosphatase C-React Prot Ext Range 15.90 H Total Protein Albumin Globulin Albumin/Globulin Ratio KARELY Screen PAMELA-1 Antibody SS-A/Ro IgG Antibody SS-B/La IgG Antibody Sm (Roth) Antibody SENIOR SH[employer]CHITECT Antibody Scl-70 Scleroderma Ab Double Strand DNA Ab Centromere B Antibody RPR [place] Type A(2) Ab [place] Type A(4) Ab [place] Type A(7) Ab [place] Type A(9) Ab [place] Type A(10) Ab [place] Type A(16) Ab [place] Type A Interp Hepatitis C Antibody HIV 1&2 Antibody 06/26/19 06/26/19 06/26/19 05:05 05:05 12:45 WBC RBC Hgb Hct MCV MCH MCHC RDW Std Deviation RDW Coeff of Pedrito Plt Count MPV Immature Gran % (Auto) Neut % (Auto) Lymph % (Auto) [place] % (Auto) Eos % (Auto) Baso % (Auto) Absolute Neuts (auto) Absolute Lymphs (auto) Nucleated RBC % ESR PT INR APTT Sodium Potassium Chloride Carbon Dioxide Anion Gap BUN Creatinine Estim Creat Clear Calc Est GFR (MDRD) Af Amer Est GFR (MDRD) Non-Af BUN/Creatinine Ratio Glucose Lactic Acid Calcium Total Bilirubin AST ALT Alkaline Phosphatase C-React Prot Ext Range Total Protein Albumin Globulin Albumin/Globulin Ratio KARELY Screen Pending PAMELA-1 Antibody Pending SS-A/Ro IgG Antibody Pending SS-B/La IgG Antibody Pending Sm (Roth) Antibody Pending SEN[employer] ARCHITECT Antibody Pending Scl-70 Scleroderma Ab Pending Double Strand DNA Ab Pending Centromere B Antibody Pending RPR Pending [place] Type A(2) Ab [place] Type A(4) Ab [place] Type A(7) Ab [place] Type A(9) Ab [place] Type A(10) Ab [place] Type A(16) Ab [place] Type A Interp Hepatitis C Antibody Pending HIV 1&2 Antibody Pending 06/26/19 12:45 WBC RBC Hgb Hct MCV MCH MCHC RDW Std Deviation RDW Coeff of Pedrito Plt Count MPV Immature Gran % (Auto) Neut % (Auto) Lymph % (Auto) [place] % (Auto) Eos % (Auto) Baso % (Auto) Absolute Neuts (auto) Absolute Lymphs (auto) Nucleated RBC % ESR PT INR APTT Sodium Potassium Chloride Carbon Dioxide Anion Gap BUN Creatinine Estim Creat Clear Calc Est GFR (MDRD) Af Amer Est GFR (MDRD) Non-Af BUN/Creatinine Ratio Glucose Lactic Acid Calcium Total Bilirubin AST ALT Alkaline Phosphatase C-React Prot Ext Range Total Protein Albumin Globulin Albumin/Globulin Ratio KARELY Screen PAMELA-1 Antibody SS-A/Ro IgG Antibody SS-B/La IgG Antibody Sm (Roth) Antibody SENIOR SH[employer] ARCHITECT Antibody Scl-70 Scleroderma Ab Double Strand DNA Ab Centromere B Antibody RPR [place] Type A(2) Ab Pending [place] Type A(4) Ab Pending [place] Type A(7) Ab Pending [place] Type A(9) Ab Pending [place] Type A(10) Ab Pending [place] Type A(16) Ab Pending [place] Type A Interp Pending Hepatitis C Antibody HIV 1&2 Antibody POC Glucose 06/26/19 06/26/19 12:35 06:52 POC Glucose 253 H 163 H Discharge Diet: 1800 Calorie Control Diet Discharge Activity: Return to Normal Activity Call your doctor if you observe: - - Worsening rash. Swelling of the lips. Trouble breathing. Home Medications: Medications to take at Discharge Amlodipine [Norvasc] 5 mg PO DAILY #30 tab 06/26/19 DiphenhydrAMINE [Benadryl] 25 mg PO Q6H PRN PRN capsule 06/26/19 Epi Pen (for allergic rxn) 0.3 mg IM X1 PRN #1 syringe 06/26/19 Loratadine [Claritin] 10 mg PO DAILY tablet 06/26/19 Prednisone 10 mg PO DAILY #30 tab.ds.pk 06/26/19 Following Prescrptions Were Given to Patient: Epi Pen (for allergic rxn) 0.3 mg IM X1 PRN #1 syringe PRN Reason: angioedema/anaphylaxis Transmission Status: Pending to [facility] Amlodipine [Norvasc] 5 mg PO DAILY #30 tab Transmission Status: Pending to [facility] Prednisone 10 mg PO DAILY #30 tab.ds.pk Transmission Status: Pending to [facility] Primary Care Physician: Rebecca Britton NP-C [Primary Care Provider] - Within 1 Week Please Follow Up With: Kurtis Addison - Dermatology When: call for appointment [phone] Disposition: Home Minutes spent on discharge:: 45 Patient Condition:: Fair Medical Necessity - Tobacco Use Smoking Status: Current every day smoker Meaningful Use Info Meaningful Use Diagnoses (Choose all that apply): None applicable Code Visit OBSV E&M: 49221 Observation care discharge
[2019-06-26 17:26] VITALS: BP 119/77; PULSE 92; RESP 18; TEMP 36.5; O2SAT 97
[2019-06-27 13:07] LABS: HIV - WCH Non-Reactive (Nonreactive); Hepatitis C Antibody Non-Reactive (Nonreactive)
[2019-06-27 15:54] LABS: ANTINUCLEAR ANTIBODIES DIRECT Negative (Negative)
[2019-06-29 02:39] LABS: Rapid Plasmin Reagin (RPR) NONREACTIVE (NONREACTIVE)
== END 2019-06-26 18:00 | disposition home or self-care (01) ==
LOC: ED 23:05 → MS3 06-26 00:11
PROVIDERS: Internal Medicine Infectious Disease; Admitting Provider Hospitalist; Emergency Provider Emergency Medicine; Family Provider Nurse Practitioner Family; PCP Nurse Practitioner Family
DX: L08.0 Pyoderma (principal); L50.9 Urticaria, unspecified; E11.9 Type 2 diabetes mellitus without complications; Z79.84 Long term (current) use of oral hypoglycemic drugs; E78.1 Pure hyperglyceridemia; F17.200 Nicotine dependence, unspecified, uncomplicated; I10 Essential (primary) hypertension; M19.90 Unspecified osteoarthritis, unspecified site
CPT/HCPCS: 11104; 11105; 36415; 80053; 82962; 83605; 85025; 85610; 85652; 85730; 86038; 86140; 86225; 86235; 86592; 86658; 86703; 86803; 87040; 87070; 87077; 87186; 87205; 88305; 88312; 96372; 97802; 99218; 99285; A4216; G0378

== ENCOUNTER → 2020-03-21 09:26 | Outpatient (CLI) | payer OTHER, SELFPAY ==
[2019-06-26 00:24] VITALS: BMI 31.2
--- NOTE | 2020-03-21 09:32 | MRI_ITS ---
STUDY: MRI THORACIC SPINE WITHOUT CONTRAST REASON FOR EXAM: Male, 49 years old. no known injury, c/o L hip pain and R back pain x 6 months TECHNIQUE: Standardized fat and water weighted pulse sequences were obtained in the sagittal and axial planes. COMPARISON: None. FINDINGS: Normal kyphosis of the thoracic spine. There is no substantial scoliosis. No evidence for acute fracture or other significant bony pathology. There is desiccation of the discs at T8-9 through T12-L1. There is minimal bulging of the discs at T11-12 and T12-L1 without spinal stenosis or cord compression Normal visualized thoracic cord. Normal conus medullaris that terminates at T12-L1 The soft tissue structures are unremarkable. MRI/Spine Thoracic (Routine) IMPRESSION: No evidence for acute fracture or other significant bony pathology Multilevel disc degeneration. Minimal bulging of the annuli at T11-12 and T12-L1 without spinal stenosis Electronically Signed: Danis Young MD at 16:39 EDT , Service support ,
--- NOTE | 2020-03-21 09:33 | MRI_ITS ---
STUDY: MRI LUMBAR SPINE WITHOUT CONTRAST REASON FOR EXAM: Male, 49 years old. no known injury, c/o L hip pain and R back pain x 6 months TECHNIQUE: Standardized fat and water weighted pulse sequences were obtained in the sagittal and axial planes. COMPARISON: None FINDINGS: No evidence for acute fracture or subluxation. Interosseous hemangioma within the L4 vertebral body T12-L1: Normal endplates. Normal disc height, hydration and morphology. Normal bilateral facet joints. Normal central canal and bilateral lateral recesses. Normal bilateral intervertebral neural foramina. Normal lumbar lordosis. There is no substantial scoliosis. Normal conus medullaris that terminates at T12-L1 L1-2: Normal endplates. Normal disc height, hydration and morphology. Normal bilateral facet joints. Normal central canal and bilateral lateral recesses. Normal bilateral intervertebral neural foramina. L2-3: Normal endplates. Normal disc height, hydration and morphology. Normal bilateral facet joints. Normal central canal and bilateral lateral recesses. Normal bilateral intervertebral neural foramina. L3-4: Normal endplates. Normal disc height, hydration and morphology. Normal bilateral facet joints. Normal central canal and bilateral lateral recesses. Normal bilateral intervertebral neural foramina. L4-5: Normal endplates. Normal disc height, hydration and minimal annular bulge.. Normal bilateral facet joints. Normal central canal and bilateral lateral recesses. Normal bilateral intervertebral neural foramina. L5-S1: Normal endplates. Normal disc height, hydration and morphology. Mild facet arthropathy.. Normal central canal and bilateral lateral recesses. Normal bilateral intervertebral neural foramina. Normal visualized sacral ala. Normal visualized paraspinous soft tissue structures. MRI/Spine Lumbar (Routine) IMPRESSION: Minimal annular bulge and facet arthropathy at L4-5 without stenosis. Mild facet arthropathy at L5-S1 without spinal stenosis Electronically Signed: Danis Young MD at 16:36 EDT , Service support ,
== END ==
PROVIDERS: PCP Nurse Practitioner Family; Referring Provider Orthopaedic Surgery; Visit Provider Orthopaedic Surgery
DX: M25.552 Pain in left hip (principal); M54.5 Low back pain; M16.12 Unilateral primary osteoarthritis, left hip; Z96.642 Presence of left artificial hip joint
CPT/HCPCS: 72146; 72148

== ENCOUNTER → 2020-04-18 11:44 | Outpatient (CLI) | payer OTHER, SELFPAY ==
[2019-06-26 00:24] VITALS: BMI 31.2
[2020-04-18 14:07] LABS: Hemoglobin A1c 9.2 % (3.8-5.6)
== END ==
PROVIDERS: PCP Nurse Practitioner Family; Referring Provider Nurse Practitioner Family; Visit Provider Nurse Practitioner Family
DX: E11.9 Type 2 diabetes mellitus without complications (principal)
CPT/HCPCS: 36415; 83036

== ENCOUNTER 2020-12-11 15:17 | Emergency (ER) | payer OTHER, SELFPAY ==
[2019-06-26 00:24] VITALS: BMI 31.2
[2020-12-11 15:18] VITALS: BP 156/130; PULSE 104; PULSE 105; RESP 18; TEMP 35.7; O2SAT 97; BMI 31.8
--- NOTE | 2020-12-11 15:39 | ED.VIS.GEN ---
History of Present Illness Chief Complaint: Foreign Body Informant: Patient Onset: Yesterday Context: Sudden Onset Timing: Continuous Quality: FB sens Location: right hypopharynx Current Severity: Moderate Maximum Severity: Moderate Worsened by: nothing Relieved by: coughing at times but doesn't resolve Narrative: Patient states he is trying to smoke and has been using tobacco pouches in his mouth to try to curb his cravings, yesterday he had one in his mouth and he took a Tylenol, when he swallowed the pill inadvertently swallowed the tobacco pouch, and it felt like it got stuck near the base of his tongue and his throat on the right. He has been able to pass solids and liquids, but has not been able to swallow the object. At times he feels like he gags, but is not able to mobilize it. He denies any chest symptoms or pleuritic discomfort there. - Past Medical History (1) Type 2 diabetes mellitus Status: Chronic (2) Essential hypertension Status: Chronic Past Medical History - Allergies and Home Meds Allergies/Adverse Reactions: Allergies No Known Allergies Allergy (Verified 06/25/19 16:22) Primary Care Physician: Rebecca Britton [employer], [facility] [facility] [facility] [Primary Care Provider] - Surgical History: herniorrhaphy Lives: Spouse/ Significant Other Smoking Status: Former smoker - Family History Maternal Family History: Reports: Heart Disease, Hypertension Paternal Family History: Reports: Diabetes, Dementia Review of Systems General: Denies: Chills, Fever, Sweats Eyes: Denies: Visual changes - bilaterally, Diplopia ENT: Denies: Bilateral ear pain, Rhinorrhea, Sore throat Cardiovascular: Denies: Chest pain, Palpitations Respiratory: Reports: Dyspnea - At times due to oropharyngeal sensations, Cough - At times. Denies: Dyspnea on exertion Gastrointestinal: Denies: Abdominal pain, Nausea, Vomiting, Diarrhea, Melena, Hematochezia Genitourinary: Denies: Dysuria, Hematuria, Frequency Musculoskeletal: Denies: Back pain, Extremity Pain Skin: Denies: Rash, Wounds Neurological: Denies: Headache, Weakness, Numbness Physical Exam Vital Signs/Narrative: Vital Signs Temp Pulse Resp BP Pulse Ox 12/11/20 15:18 96.3 F L 105 H 18 156/130 H 97 Inital Vital Signs reviewed: Yes General: Well nourished, Well developed, No Acute Distress Head: Normocephalic, Atraumatic Eyes: Perrl, EOMI ENT: Moist mucous membranes, No rhinorrhea, - - Posterior oropharynx clear with mild asymmetry, right Palatino tonsil more prominent than left. No stridor, trismus, hoarseness. No sublingual prominence/swelling. Neck: Supple, Nontender Cardiovascular: Regular rate, Regular rhythm, No murmurs Respiratory: No distress, CTA bilaterally, Chest nontender Neurological: Alert, Oriented x3, Cranial nerves II-XII grossly intact, Normal Strength, Normal Sensation, Normal Gait Psychological: Normal affect, Normal Mood Diagnostic/Tx/Re-eval - Medical Decision Making Discussed with otolaryngology Dr. Mckay who was on-call, who requests that the patient be sent to the office if stable, where he currently is seeing patients and has appropriate equipment to scope this patient and possibly retrieve the foreign body. He is tolerating secretions well, conversive in full sentences, and I am comfortable with his driving him over. Advised to remain n.p.o. until then. ED Disposition - Plan for ED Patient: Disposition: Home or Assisted Living Diagnosis: Foreign body in hypopharynx Instructions: ED Swallowed Foreign Body (Adult) Referrals: Richard Mckay MD [STAFF PHYSICIAN] - As soon as possible
== END 2020-12-11 15:57 | disposition home or self-care (01) ==
LOC: ED 15:49
PROVIDERS: Emergency Provider Emergency Medicine; PCP Nurse Practitioner Family
DX: T17.298A Other foreign object in pharynx causing other injury, initial encounter (principal); T65.291A Toxic effect of other tobacco and nicotine, accidental (unintentional), initial encounter; Y99.9 Unspecified external cause status; E11.9 Type 2 diabetes mellitus without complications; I10 Essential (primary) hypertension; Z82.49 Family history of ischemic heart disease and other diseases of the circulatory system; Z83.3 Family history of diabetes mellitus; Z87.891 Personal history of nicotine dependence
CPT/HCPCS: 99282

== ENCOUNTER → 2020-12-27 07:34 | Outpatient (CLI) | payer OTHER, SELFPAY ==
[2020-12-11 15:18] VITALS: BMI 31.8
[2020-12-27 09:15] LABS: AST(SGOT) 19 U/L (15-37); Alanine Aminotransfer ALT/SGPT 36 U/L (16-61); Albumin, Serum 3.5 g/dL (3.2-5.0); Alkaline Phosphatase 95 U/L (45-117); Anion Gap 8 (5-15); BUN 7 mg/dL (7-18); BUN/Creat Ratio 7.9 RATIO (10-20); Calcium,Total 8.5 mg/dL (8.5-10.1); Chloride 104 mmol/L (98-107); Cholesterol 235 mg/dL (200); Creatinine, Serum 0.89 mg/dL (0.70-1.30); EST Glomerular Filtration Rate 97 mL/min (>60); Est Glom Filt Rate - Afr Amer 117 mL/min (>60); Globulin 3.5 g/dL (2.2-4.2); Glucose 240 mg/dL (74-106); High Density Lipoprotein 24 mg/dL; Sodium Level 137 mmol/L (136-145); Triglycerides 1222 mg/dL
== END ==
LOC: LAB.FUTURE 07:37 → LAB 07:40
PROVIDERS: PCP Nurse Practitioner Family; Referring Provider Nurse Practitioner Family; Visit Provider Nurse Practitioner Family
DX: E11.9 Type 2 diabetes mellitus without complications (principal); I10 Essential (primary) hypertension; E78.1 Pure hyperglyceridemia
CPT/HCPCS: 36415; 80053; 80061; 83036

== ENCOUNTER 2021-02-11 18:25 | Emergency (ER) | payer OTHER, SELFPAY ==
[2021-02-11 18:26] VITALS: BP 189/106; PULSE 95; RESP 16; TEMP 35.8; O2SAT 100; BMI 30.2
--- NOTE | 2021-02-11 19:42 | EDS_ITS ---
HPI History of Present Illness Chief Complaint: Wound Informant: patient Onset/Context/Timing Onset: Today Context: Gradual Onset Timing: Continuous Quality: sore, swollen Location: R foot Current Severity: Moderate Maximum Severity: Severe Worsened by: walking, palpation Relieved by: rest and leaving alone Associated Symptoms Associated Symptoms: blistering from rubbing in boot, seeping clear fluid, redness Narrative Narrative: Patient is a prediabetic, he states his right foot started swelling mildly last night before going to bed, he went to work where he uses work boots that are not new, he states the swelling continued since he was on his feet all morning at work, and as result started rubbing while in his work boots. When he looked at his foot, he was very concerned about the worsening swelling, redness, increased pain, and blisters. He states all of these are from areas that were rubbing in his boot. He denies any fevers, chills, systemic symptoms. He does not check his blood sugar regularly but did check it today given all this, it was 106. Prior similar symptoms: No PFSH PFS Medical History (Updated 02/11/21 @ 22:[address] Declan Concepcion MD) Arthritis History of type 2 diabetes mellitus Hypertension Home Medications amlodipine 5 mg PO DAILY #30 tab 06/26/19 [Rx Last Taken Unknown] diphenhydramine HCl 25 mg PO Q6H PRN PRN cap 06/26/19 [Rx Last Taken Unknown] loratadine 10 mg PO DAILY tab 06/26/19 [Rx Last Taken Unknown] glipizide 5 mg PO DAILY 12/11/20 [History Last Taken Unknown] losartan 100 mg PO DAILY 12/11/20 [History Last Taken Unknown] nabumetone 750 mg PO BID 12/11/20 [History Last Taken Unknown] amoxicillin-pot clavulanate [Augmentin] 1 tab PO BID #20 tab 02/11/21 [Rx Last Taken Unknown] ciprofloxacin HCl 500 mg PO BID #20 tablet 02/11/21 [Rx Last Taken Unknown] hydrocodone-acetaminophen 1 tab PO Q6H PRN PRN 2 Days #10 tablet 02/11/21 [Rx Last Taken Unknown] Allergy/AdvReac Type Severity Reaction Status Date / Time No Known Allergies Allergy Verified 02/11/21 18:28 Surgical History History of hip replacement Social History Smoking Status: Current every day smoker alcohol intake: current ROS ROS ED Constitutional Constitutional ED: Denies chills or fever(s) Eyes Eyes: Denies change in vision or diplopia ENT ENT ED: Denies rhinorrhea or sore throat Cardiovascular Cardiovascular: Denies chest pain or palpitations Respiratory/Chest Respiratory/Chest: Denies cough or dyspnea Gastrointestinal Gastrointestinal: Denies abdominal pain, diarrhea, nausea or vomiting Genitourinary Genitourinary ED: Denies dysuria or hematuria Musculoskeletal Musculoskeletal: Reports as per HPI and extremity pain; Denies back pain or neck pain Integumentary Reports as per HPI, rash and wounds; Denies abscess Neurologic Neurologic: Denies headache(s), paresthesias or weakness Psychiatric Psychiatric: Denies anxiety or suicidal thoughts EXAM Physical Exam Const Vital Signs: 02/11/21 18:26 02/11/21 19:46 02/11/21 20:57 Temperature 96.5 F L 98.4 F 98.1 F Temperature Source Temporal Oral Temporal Pulse Rate 95 89 96 Respiratory Rate 16 18 15 Blood Pressure 189/106 H 155/96 H 150/92 H Blood Pressure Mean 133 115 111 Pulse Ox 100 96 97 Oxygen Delivery Method Room Air Room Air Room Air 02/11/21 22:07 Temperature Temperature Source Pulse Rate 63 Respiratory Rate 15 Blood Pressure 158/102 H Blood Pressure Mean 120 Pulse Ox 97 Oxygen Delivery Method Room Air Positive well nourished and well developed General Appearance ED: well developed and NAD HEENT Reports moist mucous membranes normocephalic and atraumatic Eyes PERRL and EOMs intact bilaterally Neck full ROM and supple Resp normal respiratory effort and clear to auscultation bilaterally Cardio regular rate, regular rhythm and no murmurs Rate: Negative for tachycardic GI non-tender and non-distended Auscultation: normoactive bowel sounds Palpation: soft Back/Spine no CVA tenderness General Back: other FROM Extremity no calf tenderness Extremity Narrative: Right foot diffusely swollen and erythematous, worse distally where there are broken blisters dorsal MTPJs. All diffusely mild- moderately tender. No subcutaneous emphysema. No lymphangitis. Able to move foot and ankle. No redness proximal to the ankle. Small amount of ecchymosis at the medial/tibial aspect of the forefoot near the first MTPJ, skin intact there. Patient states that this was an area that was rubbing in his boot. The plantar aspect is unremarkable and without tenderness. There is no abscess throughout the foot or ankle. General Extremety ED: Negative for edema or pulses abnormal General Extremity: Negative for edema or pulses abnormal Neuro oriented x3, CN's II-XII intact bilaterally and no sensory deficits noted Sensorium / Orientation: awake and alert Motor Exam: strength 5/5 throughout Skin no rashes or lesions noted Wounds: wounds noted drainage serous and other Nothing actively draining or expressible , no odor, surrounding erythema and other Open superficial blisters right dorsal forefoot. Dorsum of right foot erythematous and tender. No lymphangitis. MDM MDM MDM Narrative Medical decision making narrative: X-ray shows soft tissue swelling only, no subcutaneous air. He has a mild leukocytosis. The rest of his labs are unremarkable. I discussed with Dr. Page with podiatry, she reviewed photographs securely of the patient's foot in addition to the x-rays, and was comfortable with the patient being sent home on antibiotics and following up. He was given Zosyn here, will send him home on Augmentin and Cipro, as well as some pain medicine, crutches, and a work note. He is comfortable with that plan. Lab Data Attestation: I reviewed the patient's lab results. Labs: Laboratory Results - last 24 hr 02/11/21 02/11/21 02/11/21 19:54 19:54 19:54 WBC 12.6 H RBC 5.06 Hgb 15.4 Hct 44.7 MCV 88.3 MCH 30.4 MCHC 34.5 RDW Std Deviation 41.2 RDW Coeff of Pedrito 12.7 Plt Count 300 MPV 9.0 Immature Gran % (Auto) 0.600 Neut % (Auto) 67.8 Lymph % (Auto) 24.5 [place] % (Auto) 4.7 Eos % (Auto) 2.1 Baso % (Auto) 0.3 Absolute Neuts (auto) 8.6 H Absolute Lymphs (auto) 3.10 Nucleated RBC % 0 PT 12.4 INR 1.0 APTT 30.3 Sodium 140 Potassium 3.7 Chloride 108 H Carbon Dioxide 28.0 Anion Gap 4 L BUN 8 Creatinine 0.76 Estim Creat Clear Calc 118.87 Est GFR (MDRD) Af Amer 141 Est GFR (MDRD) Non-Af 116 BUN/Creatinine Ratio 10.5 Glucose 159 H Lactic Acid Calcium 8.7 Total Bilirubin 0.60 AST 4 L ALT 21 Alkaline Phosphatase 83 Total Protein 6.7 Albumin 3.6 Globulin 3.1 Albumin/Globulin Ratio 1.2 POC Glucose 02/11/21 02/11/21 19:54 20:53 WBC RBC Hgb Hct MCV MCH MCHC RDW Std Deviation RDW Coeff of Pedrito Plt Count MPV Immature Gran % (Auto) Neut % (Auto) Lymph % (Auto) [place] % (Auto) Eos % (Auto) Baso % (Auto) Absolute Neuts (auto) Absolute Lymphs (auto) Nucleated RBC % PT INR APTT Sodium Potassium Chloride Carbon Dioxide Anion Gap BUN Creatinine Estim Creat Clear Calc Est GFR (MDRD) Af Amer Est GFR (MDRD) Non-Af BUN/Creatinine Ratio Glucose Lactic Acid 0.9 Calcium Total Bilirubin AST ALT Alkaline Phosphatase Total Protein Albumin Globulin Albumin/Globulin Ratio POC Glucose 166 H Radiography Diagnostic Testing: Radiology Impression Foot X-Ray 02/11/21 20:14 IMPRESSION: Possible soft tissue swelling otherwise unremarkable exam Electronically Signed: David Spencer MD at 20:39 EDT , Service support , My interpretation 3 views of the right foot show no bony acute abnormality. Discharge Plan Triage Chief Complaint: Wound ED Provider: Declan Concepcion Dx/Rx/DC Orders Clinical Impression: Diabetic infection of right foot Instructions: ED Wound Check (Infection) Prescriptions: New amoxicillin-pot clavulanate [Augmentin] 875-125 mg tablet 1 tab PO BID Qty: 20 RF: 0 ciprofloxacin HCl 500 mg tablet 500 mg PO BID Qty: 20 RF: 0 hydrocodone-acetaminophen 5-325 mg tablet 1 tab PO Q6H PRN PRN (Reason: Pain) 2 Days Qty: 10 RF: 0 No Action amlodipine 5 MG tablet 5 mg PO DAILY Qty: 30 RF: 0 diphenhydramine HCl 25 MG capsule 25 mg PO Q6H PRN PRN (Reason: Itching) RF: 0 loratadine 10 MG tablet 10 mg PO DAILY RF: 0 nabumetone 750 MG tablet 750 mg PO BID RF: 0 losartan 100 MG tablet 100 mg PO DAILY RF: 0 glipizide 5 MG tablet 5 mg PO DAILY RF: 0 Primary Care Provider: Rebecca Britton NP Referrals: Zakia Page DPM [STAFF PHYSICIAN] - As soon as possible (call tomorrow for appt) Disposition Disposition: Home, self care
[2021-02-11 19:46] VITALS: BP 155/96; PULSE 89; RESP 18; TEMP 36.9; O2SAT 96
[2021-02-11 20:04] LABS: Absolute Neutrophil Count 8.6 X10^3/uL (2.0-7.7); Basophil# 0.04 X10^3/uL; Basophil% 0.3 % (0-1); Eosinophil# 0.27 X10^3/uL; Eosinophils% 2.1 % (0-5); Hematocrit 44.7 % (40-54); Hemoglobin 15.4 g/dL (13.0-16.5); Lymphocyte % 24.5 % (19-41); Mean Corp Hgb Conc 34.5 g/dL (32-36); Mean Corpuscular Hgb 30.4 pg (27.0-32.0); Mean Corpuscular Volume 88.3 fL (80-94); Monocyte# 0.59 X10^3/uL; Monocyte% 4.7 % (0-10); NRBC Flagged by Analyzer 0 % (0-5); Neutrophil # 8.56 X10^3/uL (2.7-7.7); Neutrophil % 67.8 % (47-70); Platelet Count 300 K/mm3 (150-450); RBC Distribution Width CV 12.7 % (11.6-14.6); RBC Distribution Width SD 41.2 fl (35.1-43.9); Red Blood Count 5.06 M/mm3 (4.6-6.2); White Blood Count 12.6 K/mm3 (4.4-11.0)
[2021-02-11] MEDS: 0.9% Normal Saline 1,000 ML 999 ML IV (20:06)
[2021-02-11 20:14] LABS: Prothrombin Time (Protime)PT. 12.4 SECONDS (11.7-14.9)
--- NOTE | 2021-02-11 20:14 | RAD_ITS ---
STUDY: X-RAY - RIGHT FOOT CLINICAL: Male, 50 years old. pain, infection TECHNIQUE: 3 view(s) of the foot. COMPARISON: None. FINDINGS: Normal talus, calcaneus, and tarsal bones. Normal visualized subtalar, talonavicular, calcaneocuboid, tarsal and tarsometatarsal articulations. Normal metatarsi. Normal metatarsophalangeal joint of the great toe. Normal tibial and fibular sesamoid bones. Normal interphalangeal joint of the great toe. Normal phalanges of the great toe. Normal second through fifth metatarsophalangeal joints. Normal interphalangeal joints and phalanges of the lesser toes. Possible soft tissue swelling. RAD/Foot min 3 Views IMPRESSION: Possible soft tissue swelling otherwise unremarkable exam Electronically Signed: David Spencer MD at 20:39 EDT , Service support ,
[2021-02-11 20:15] LABS: Partial Thromboplast Time 30.3 Seconds (24.1-36.2)
[2021-02-11 20:21] LABS: ALB/GLOB Ratio 1.2 RATIO (0.9-2.4); AST(SGOT) 4 U/L (15-37); Alanine Aminotransfer ALT/SGPT 21 U/L (16-61); Albumin, Serum 3.6 g/dL (3.2-5.0); Alkaline Phosphatase 83 U/L (45-117); Anion Gap 4 (5-15); BUN 8 mg/dL (7-18); BUN/Creat Ratio 10.5 RATIO (10-20); Calcium,Total 8.7 mg/dL (8.5-10.1); Chloride 108 mmol/L (98-107); Creatinine, Serum 0.76 mg/dL (0.70-1.30); EST Glomerular Filtration Rate 116 mL/min (>60); Est Glom Filt Rate - Afr Amer 141 mL/min (>60); Estimated Creatinine Clearance 118.87 ml/min; Globulin 3.1 g/dL (2.2-4.2); Glucose 159 mg/dL (74-106); Potassium 3.7 mmol/L (3.5-5.1); Protein, Total 6.7 g/dL (6.4-8.2); Sodium Level 140 mmol/L (136-145)
[2021-02-11 20:31] LABS: Lactic Acid 0.9 mmol/L (0.4-1.9)
[2021-02-11 20:57] VITALS: BP 150/92; PULSE 96; RESP 15; TEMP 36.7; O2SAT 97
[2021-02-11 21:01] LABS: Bedside Glucose 166 mg/dL (70-110)
[2021-02-11 22:07] VITALS: BP 158/102; PULSE 63; RESP 15; O2SAT 97
[2021-02-11] MEDS: HYDROcodone Bitartrate/Apap 5/325 Tablet PO (22:40)
[2021-02-11 22:48] VITALS: BP 154/100; PULSE 78; RESP 16; O2SAT 98
== END 2021-02-11 22:56 | disposition home or self-care (01) ==
PROVIDERS: Emergency Provider Emergency Medicine; PCP Nurse Practitioner Family
DX: L08.89 Other specified local infections of the skin and subcutaneous tissue (principal); E11.69 Type 2 diabetes mellitus with other specified complication; F17.200 Nicotine dependence, unspecified, uncomplicated
CPT/HCPCS: 73630; 80053; 82962; 83605; 85025; 85610; 85730; 87040; 96365; 99283; J7030; A4216

== ENCOUNTER → 2021-07-18 07:44 | Outpatient (CLI) | payer OTHER, SELFPAY ==
[2021-07-18 08:46] LABS: ALB/GLOB Ratio 1.1 RATIO (0.9-2.4); AST(SGOT) 28 U/L (15-37); Alanine Aminotransfer ALT/SGPT 51 U/L (16-61); Albumin, Serum 3.7 g/dL (3.2-5.0); Alkaline Phosphatase 79 U/L (45-117); Anion Gap 5 (5-15); BUN 10 mg/dL (7-18); BUN/Creat Ratio 11.9 RATIO (10-20); Chloride 102 mmol/L (98-107); Cholesterol 161 mg/dL (200); Creatinine, Serum 0.84 mg/dL (0.70-1.30); EST Glomerular Filtration Rate 103 mL/min (>60); Est Glom Filt Rate - Afr Amer 125 mL/min (>60); Globulin 3.3 g/dL (2.2-4.2); Glucose 190 mg/dL (74-106); High Density Lipoprotein 32 mg/dL; Potassium 3.9 mmol/L (3.5-5.1); Sodium Level 136 mmol/L (136-145); Triglycerides 389 mg/dL; Very Low Density Lipoprotein 78 mg/dL (5-40)
[2021-07-18 08:47] LABS: Hemoglobin A1c 8.2 % (3.8-5.6)
== END ==
PROVIDERS: PCP Nurse Practitioner Family; Referring Provider Nurse Practitioner Family; Visit Provider Nurse Practitioner Family
DX: E11.9 Type 2 diabetes mellitus without complications (principal)
CPT/HCPCS: 36415; 80053; 80061; 83036

== ENCOUNTER 2021-09-22 11:27 | Outpatient (CLI) | payer OTHER, SELFPAY ==
[2021-09-22 11:47] VITALS: BP 162/115; PULSE 120; RESP 24; TEMP 36.6; O2SAT 93; BMI 29.5
[2021-09-22] MEDS: 0.9% Saline Lock 10 ML Syringe IV (11:49)
[2021-09-22 12:48] VITALS: BP 133/104; PULSE 106; RESP 20; TEMP 36.4; O2SAT 94
[2021-09-22 13:46] VITALS: BP 141/100; PULSE 104; RESP 18; TEMP 36.8; O2SAT 94
== END 2021-09-22 13:50 | disposition home or self-care (01) ==
LOC: MS3OUT 11:28 → MS3 11:28
PROVIDERS: PCP Nurse Practitioner Family; Referring Provider Nurse Practitioner Adult Health; Visit Provider Nurse Practitioner Adult Health
DX: Z23 Encounter for immunization (principal); U07.1 COVID-19
CPT/HCPCS: J7050; M0243; A4216; Q0244

== ENCOUNTER 2021-09-23 11:17 | Inpatient (IN) | payer OTHER, SELFPAY ==
[2021-09-23] VITALS (17 sets, daily range): BP systolic 135–193; BP diastolic 82–119; PULSE 94–118; RESP 26–114; TEMP 35.6–37; O2SAT 94–100; BMI 28.8; BMI 29.6
--- NOTE | 2021-09-23 11:30 | RAD_ITS ---
STUDY: X-RAY CHEST REASON FOR EXAM: Male, 50 years old. covid TECHNIQUE: Single AP portable view of the chest. COMPARISON: Comparison is made with prior study dated 01/19/2014. FINDINGS: EKG electrodes are seen. There is elevation of the right hemidiaphragm. Increased markings are seen at both lung bases suggestive of bibasilar atelectasis and/or early infiltrate worse on the right side. Normal size heart. Normal mediastinum and terry. Normal visualized pulmonary arteries. Normal visualized aortic arch and descending thoracic aorta. Normal visualized thoracic spine. Normal visualized ribs, clavicles, and shoulders. There is no demonstrated abnormality of the visualized soft tissue structures of the upper abdomen. RAD/Chest 1 View (Portable) IMPRESSION: Increased markings at the lung bases more prominent on the right side suggestive of either bibasilar atelectasis and/or early infiltrate. Electronically Signed: Chris Brito MD at 13:04 EST , Service support ,
--- NOTE | 2021-09-23 11:32 | EDS_ITS ---
HPI HPI - URI History of Present Illness Chief Complaint: Shortness of Breath Informant: patient and spouse/S.O. Onset/Context/Timing Onset: Days Context: Gradual Onset Timing: Continuous Current Severity: Mild Maximum Severity: Moderate Associated Symptoms Associated Symptoms: Positive for Nasal Congestion, Headache, Myalgias, Nausea, Vomiting, Diarrhea, Shortness of Breath and Productive Cough Narrative Narrative: 50-year-old male unvaccinated Covid positive since the eighth. Yesterday he received monoclonal antibodies. He does have a history of diabetes and hypertension. His tested positive. He had a test to go back to work was not having any symptoms tested positive in 2 days after that he started feeling ill. He is having nausea, vomiting and diarrhea. He is feeling shortness of breath. He was on 5 days of Decadron that is now been finished. Prior similar symptoms: No Recent Illness/Hospitalization: No ROS ROS ED ROS Narrative Nausea, vomiting, diarrhea, cough and shortness of breath. Review of Systems ROS Unobtainable: Denies due to encephalopathy Constitutional Constitutional ED: Denies fever(s) Eyes Eyes: Denies change in vision ENT ENT ED: Denies ear pain Cardiovascular Cardiovascular: Denies chest pain Respiratory/Chest Respiratory/Chest: Reports cough, dyspnea and sputum Gastrointestinal Gastrointestinal: Reports diarrhea, nausea and vomiting; Denies abdominal pain, constipation or melena Genitourinary Genitourinary ED: Denies dysuria Musculoskeletal Musculoskeletal: Reports myalgias Integumentary Denies rash Neurologic Neurologic: Reports headache(s) Psychiatric Psychiatric: Denies depression Endocrine Endocrinology: Denies polyuria Hematologic/Lymphatic Hematologic/Lymphatic: Denies easy bruising Allergic/Immunologic Allergic/Immunologic ED: Denies urticaria [facility], [facility] Medical History Arthritis COVID-19 History of type 2 diabetes mellitus Hypertension Home Medications losartan 100 mg PO DAILY 12/11/20 [History Last Taken Unknown] glipizide 10 mg PO DAILY 09/22/21 [History Last Taken Unknown] loratadine 10 mg PO DAILY PRN 09/22/21 [History Last Taken Unknown] Allergy/AdvReac Type Severity Reaction Status Date / Time No Known Allergies Allergy Verified 09/23/21 11:18 Family History (Updated 09/23/21 @ 14:[address] Richard Lopez DO) Other Diabetes Surgical History History of hip replacement Social History Smoking Status: Current every day smoker tobacco type: cigarettes alcohol intake: current EXAM Physical Exam Narrative Exam Narrative: Middle-aged male vital signs stable he is afebrile. His pulse ox on percent room air no signs hypoxia. HEENT exam dry mucous membranes otherwise unremarkable. Neck nontender no meningismus. Lungs clear to auscultation. Heart tachycardic rate about 115 no murmur. Abdomen soft nontender. Moving all 4 extremities. Calves nontender no edema. Neurologically is awake and alert with no focal motor deficits. Const Vital Signs: 09/23/21 11:18 09/23/21 11:22 09/23/21 12:41 Temperature 96.1 F L 96.1 F L 98.1 F Temperature Source Temporal Temporal Temporal Pulse Rate 118 H 118 H 111 H Respiratory Rate 30 H 30 H 27 H Respiratory Effort Respiratory Depth Respiratory Pattern Blood Pressure 177/119 H 177/119 H 166/101 H Blood Pressure Mean 138 138 122 Pulse Ox 100 100 97 Oxygen Delivery Method Room Air Room Air Room Air 09/23/21 12:42 09/23/21 13:09 09/23/21 14:29 Temperature 97.3 F L 97.5 F L Temperature Source Oral Temporal Pulse Rate 112 H 106 H Respiratory Rate 26 H 28 H Respiratory Effort Short of Breath Respiratory Depth Deep Respiratory Pattern Tachypnea Blood Pressure 179/106 H 176/102 H Blood Pressure Mean 130 126 Pulse Ox 97 97 Oxygen Delivery Method Room Air Room Air Room Air Positive well nourished and well developed; Negative for obese, cachectic or contractures General Appearance ED: well developed and NAD; Negative for cachectic, contractures, cyanotic, diaphoretic or pallor Nutritional Appearance: Negative for cachectic or obese HEENT Reports dry mucous membranes; Denies moist mucous membranes normocephalic and atraumatic; Negative for scalp tenderness Face and Sinus: Negative for sinus tenderness or facial tenderness External Ear: external ears normal Mouth ED: Yes dry mucous membranes Mouth: dry mucous membranes Eyes PERRL and EOMs intact bilaterally Neck no lymphadenopathy, supple, no meningeal signs and no JVD General: Negative for anterior neck swelling or lymphadenopathy Resp normal respiratory effort and clear to auscultation bilaterally Auscultation: Negative for rales, rhonchi or wheezes Cardio S1 normal heart sound, S2 normal heart sound and no murmurs Rate: tachycardic; Negative for regular rate Rhythm: regular rhythm GI non-tender, non-distended and no masses Inspection: abdominal distention Auscultation: normoactive bowel sounds; Negative for hyperactive bowel sounds Palpation: soft; Negative for tender or guarding Back/Spine no CVA tenderness and normal ROM General Back: Negative for CVA tenderness Cervical Spine: Negative for cervical spine tenderness Extremity normal to inspection and full ROM General Extremety ED: Negative for cyanosis or tenderness General Extremity: Negative for cyanosis Neuro oriented x3 Sensorium / Orientation: alert, oriented to person, oriented to place and oriented to time; Negative for orientation impaired, lethargic or stuporous Motor Exam: strength 5/5 throughout Psych mental status grossly normal Skin General Skin Exam: Negative for jaundice or pallor Lesions: no lesions Rashes: no rashes MDM MDM MDM Narrative Medical decision making narrative: 50-year-old male day 8 Covid positive. Complaining of nausea, vomiting and diarrhea. Vital signs are stable. Clinically looks dehydrated. He received a liter of IV fluids. Toradol and Zofran. Screening labs and chest x-ray is being obtained. He will also receive IV Decadron. He has already received monoclonal antibodies. Repeat exam at 230 patient continues to improve he is had 2 L of fluid he is already been started on insulin drip will be admitted to the ICU to the hospitalist has already evaluated the patient. Lab Data Attestation: I reviewed the patient's lab results. Lab results narrative: CBC shows a white count of 16. Hemoglobin 19.6 consis tent with hemoconcentration. Platelets 232. Electrolytes show sodium 129 potassium of 5.5. His anion gap is 27 with a BUN of 31 and creatinine 1.81. Glucose is elevated at 534. Alkaline phosphatase elevated 137. Patient has moderate ketones. Consistent with DKA. Labs: Laboratory Results - last 24 hr 09/23/21 09/23/21 09/23/21 11:46 11:46 13:46 WBC 16.2 H RBC 6.59 H Hgb 19.6 H* Hct 58.7 H MCV 89.1 MCH 29.7 MCHC 33.4 RDW Std Deviation 42.2 RDW Coeff of Pedrito 12.9 Plt Count 232 MPV 10.4 Immature Gran % (Auto) 1.500 H Neut % (Auto) 85.5 H Lymph % (Auto) 8.2 L [place] % (Auto) 4.2 Eos % (Auto) 0.0 Baso % (Auto) 0.6 Absolute Neuts (auto) 13.8 H Absolute Lymphs (auto) 1.33 Nucleated RBC % 0 Differential Comment COMMENT Diff Path Review May foll Sodium 129 L Potassium 5.5 H Chloride 94 L Carbon Dioxide 8.0 L* Anion Gap 27 H BUN 31 H Creatinine 1.81 H Estim Creat Clear Calc 49.91 Est GFR (MDRD) Af Amer 52 L Est GFR (MDRD) Non-Af 43 L BUN/Creatinine Ratio 17.1 Glucose 534 H* Calcium 9.5 Total Bilirubin 0.70 AST 29 ALT 48 Alkaline Phosphatase 137 H Total Protein 9.6 H Albumin 4.0 Globulin 5.6 H Albumin/Globulin Ratio 0.7 L Acetone Level MODERATE H POC Glucose 09/23/21 13:49 WBC RBC Hgb Hct MCV MCH MCHC RDW Std Deviation RDW Coeff of Pedrito Plt Count MPV Immature Gran % (Auto) Neut % (Auto) Lymph % (Auto) [place] % (Auto) Eos % (Auto) Baso % (Auto) Absolute Neuts (auto) Absolute Lymphs (auto) Nucleated RBC % Differential Comment Diff Path Review Sodium Potassium Chloride Carbon Dioxide Anion Gap BUN Creatinine Estim Creat Clear Calc Est GFR (MDRD) Af Amer Est GFR (MDRD) Non-Af BUN/Creatinine Ratio Glucose Calcium Total Bilirubin AST ALT Alkaline Phosphatase Total Protein Albumin Globulin Albumin/Globulin Ratio Acetone Level POC Glucose 484 H* Radiography Diagnostic Testing: Clinical Impression(s) from Imaging Studies Chest X-Ray 09/23/21 11:30 IMPRESSION: Increased markings at the lung bases more prominent on the right side suggestive of either bibasilar atelectasis and/or early infiltrate. Electronically Signed: Chris Brito MD at 13:04 EST , Service support , Portable, single view interpreted by myself shows bibasilar infiltrates.. Normal cardiac silhouette. Interpreted both by myself and the radiologist. Critical Care Time Critical Care Time: Yes Critical care time (excluding procedures): 30-74 minutes, Including time spent:, Discussing w/Patient &/or Family/Infection Control Rn, Discussing w/Consultants, Arranging Admission or Transfer, Performing Direct Patient Care at Bedside and - (33 min) Discharge Plan Dx/Rx/DC Orders Clinical Impression: COVID-19, Type 2 diabetes mellitus, Acute dehydration, Acute kidney injury, DKA (diabetic ketoacidosis) Disposition Disposition: Acute Care Hospital [facility]
[2021-09-23 11:51] LABS: Absolute Lymphocyte Count 1.33 X10^3/uL (0.83-4.51); Absolute Neutrophil Count 13.8 X10^3/uL (2.0-7.7); Basophil% 0.6 % (0-1); Lymphocyte # 1.33 X10^3/ul (0.83-4.51); Lymphocyte % 8.2 % (19-41); Mean Corp Hgb Conc 33.4 g/dL (32-36); Mean Corpuscular Hgb 29.7 pg (27.0-32.0); Mean Corpuscular Volume 89.1 fL (80-94); Mean Platelet Vol. 10.4 fl (6.2-12.0); Monocyte# 0.68 X10^3/uL; Monocyte% 4.2 % (0-10); NRBC Flagged by Analyzer 0 % (0-5); Neutrophil # 13.81 X10^3/uL (2.7-7.7); Neutrophil % 85.5 % (47-70); Platelet Count 232 K/mm3 (150-450); RBC Distribution Width CV 12.9 % (11.6-14.6); RBC Distribution Width SD 42.2 fl (35.1-43.9); Red Blood Count 6.59 M/mm3 (4.6-6.2); White Blood Count 16.2 K/mm3 (4.4-11.0)
[2021-09-23] MEDS: 0.9% Normal Saline 1,000 ML 1000 ML IV (11:52)
[2021-09-23] MEDS: Ondansetron 4 MG/2 ML Vial IV (11:52)
[2021-09-23] MEDS: Ketorolac 30 MG/ML Syringe IV (11:53)
[2021-09-23] MEDS: dexAMETHasone 20 MG/5 ML Vial IV (11:54)
[2021-09-23 12:14] LABS: Hematocrit 58.7 % (40-54)
[2021-09-23 12:15] LABS: Differential Indicated SCAN CRITERIA MET; Hemoglobin 19.6 g/dL (13.0-16.5)
[2021-09-23 12:35] LABS: ALB/GLOB Ratio 0.7 RATIO (0.9-2.4); AST(SGOT) 29 U/L (15-37); Alanine Aminotransfer ALT/SGPT 48 U/L (16-61); Alkaline Phosphatase 137 U/L (45-117); Anion Gap 27 (5-15); BUN 31 mg/dL (7-18); BUN/Creat Ratio 17.1 RATIO (10-20); Calcium,Total 9.5 mg/dL (8.5-10.1); Chloride 94 mmol/L (98-107); Creatinine, Serum 1.81 mg/dL (0.70-1.30); EST Glomerular Filtration Rate 43 mL/min (>60); Est Glom Filt Rate - Afr Amer 52 mL/min (>60); Estimated Creatinine Clearance 49.91 ml/min; Globulin 5.6 g/dL (2.2-4.2); Glucose 534 mg/dL (74-106); Potassium 5.5 mmol/L (3.5-5.1); Protein, Total 9.6 g/dL (6.4-8.2); Sodium Level 129 mmol/L (136-145)
[2021-09-23] MEDS: 0.9% Normal Saline 1,000 ML 999 ML IV ×2 (13:39→14:41)
[2021-09-23 13:56] LABS: Bedside Glucose 484 mg/dL (70-110)
--- NOTE | 2021-09-23 14:25 | HP.PCM.HOS_ITS ---
HPI - General HPI Narrative SAIMA AMAYA, is a 50 M who presents presents with a general illness. Patient has been sick for the he did have a test positive for COVID-19. He did receive the Covid monoclonal antibody. He is unvaccinated. Patient presents to the emergency room and found in be DKA. Patient received IV fluids. Patient has been since started on insulin drip. Patient is a type 2 [id number] diabetic. Patient states that he was too unwell to take any of his medications. [facility] Medical History Arthritis COVID-19 History of type 2 diabetes mellitus Hypertension Home Medications losartan 100 mg PO DAILY 12/11/20 [History Last Taken Unknown] glipizide 10 mg PO DAILY 09/22/21 [History Last Taken Unknown] loratadine 10 mg PO DAILY PRN 09/22/21 [History Last Taken Unknown] Allergy/AdvReac Type Severity Reaction Status Date / Time No Known Allergies Allergy Verified 09/23/21 11:18 Family History (Updated 09/23/21 @ 14:[address] Richard Lopez DO) Other Diabetes Surgical History History of hip replacement Social History Smoking Status: Current every day smoker tobacco type: cigarettes alcohol intake: current ROS ROS Narrative Myalgias, malaise, cough, shortness of breath. All review of systems were negative except as mentioned above in the history of present illness and the other review of systems. Vital Signs Vital Signs Vital Signs: 09/23/21 11:18 09/23/21 11:22 09/23/21 12:41 Temperature 35.6 C L 35.6 C L 36.7 C Temperature Source Temporal Temporal Temporal Pulse Rate 118 H 118 H 111 H Respiratory Rate 30 H 30 H 27 H Respiratory Effort Respiratory Depth Respiratory Pattern Blood Pressure 177/119 H 177/119 H 166/101 H Blood Pressure Mean 138 138 122 Pulse Ox 100 100 97 Oxygen Delivery Method Room Air Room Air Room Air 09/23/21 12:42 09/23/21 13:09 Temperature 36.3 C L Temperature Source Oral Pulse Rate 112 H Respiratory Rate 26 H Respiratory Effort Short of Breath Respiratory Depth Deep Respiratory Pattern Tachypnea Blood Pressure 179/106 H Blood Pressure Mean 130 Pulse Ox 97 Oxygen Delivery Method Room Air Room Air Weight Weight: 88.451 kg Body Mass Index (BMI) 28.8 Results Lab / Micro Data Result Diagrams: 09/23/21 11:46 09/23/21 11:46 Labs: Laboratory Results - last 24 hr 09/23/21 11:46: WBC 16.2 H, RBC 6.59 H, Hgb 19.6 H*, Hct 58.7 H, MCV 89.1, MCH 29.7, MCHC 33.4, RDW Std Deviation 42.2, RDW Coeff of Pedrito 12.9, Plt Count 232, MPV 10.4, Immature Gran % (Auto) 1.500 H, Neut % (Auto) 85.5 H, Lymph % (Auto) 8.2 L, [place] % (Auto) 4.2, Eos % (Auto) 0.0, Baso % (Auto) 0.6, Absolute Neuts (auto) 13.8 H, Absolute Lymphs (auto) 1.33, Nucleated RBC % 0, Differential Comment COMMENT, Diff Path Review February09/23/21 11:46: Sodium 129 L, Potassium 5.5 H, Chloride 94 L, Carbon Dioxide 8.0 L*, Anion Gap 27 H, BUN 31 H, Creatinine 1.81 H, Estim Creat Clear Calc 49.91, Est GFR (MDRD) Af Amer 52 L, Est GFR (MDRD) Non-Af 43 L, BUN/Creatinine Ratio 17.1, Glucose 534 H*, Calcium 9.5, Total Bilirubin 0.70, AST 29, ALT 48, Alkaline Phosphatase 137 H, Total Protein 9.6 H, Albumin 4.0, Globulin 5.6 H, Albumin/Globulin Ratio 0.7 L 09/23/21 13:46: Acetone Level MODERATE H 09/23/21 13:49: POC Glucose 484 H* Radiology Impression Chest X-Ray 09/23/21 11:30 IMPRESSION: Increased markings at the lung bases more prominent on the right side suggestive of either bibasilar atelectasis and/or early infiltrate. Electronically Signed: Chris Brito MD at 13:04 EST , Service support , Assessment & Plan Assessment/Plan (1) DKA (diabetic ketoacidoses): QUALIFIERS: Diabetes mellitus type: type 2 Diabetes mellitus complication detail: without coma Qualified Code(s): E11.10 - Type 2 diabetes mellitus with ketoacidosis without coma (2) COVID-19: (3) Acute kidney injury: (4) Acute dehydration: PLAN: 1. Acute DKA Patient is a type II diabetic on glipizide at home. Likely having COVID-19 made his blood sugars worse but patient likely has very poorly controlled diabetes which led to his current condition Insulin drip, IV fluids DKA protocol Check an A1c Anticipate patient will require insulin upon discharge 2. COVID-19 Unvaccinated but did receive monoclonal antibodies Not hypoxic and therefore does not require any treatment at present. 3. Acute kidney injury Likely due to dehydration from DKA Monitor IV fluids 4. Dehydration As above 5. VTE prophylaxis with Lovenox Charges/Coding Visit Charges Inpatient E&M: 62262 Init Hosp L3
[2021-09-23 14:39] LABS: Pathologist Review Reviewed
[2021-09-23 15:17] LABS: Hemoglobin A1c 10.3 % (3.8-5.6)
[2021-09-23 16:30] LABS: Bedside Glucose 359 mg/dL (70-110)
[2021-09-23 17:31] LABS: Bedside Glucose 299 mg/dL (70-110)
[2021-09-23 18:45] LABS: Bedside Glucose 283 mg/dL (70-110)
[2021-09-23] MEDS: 0.9% Normal Saline 1,000 ML 500 ML IV (18:47)
[2021-09-23 20:16] LABS: Bedside Glucose 273 mg/dL (70-110)
[2021-09-23 20:39] LABS: Anion Gap 17 (5-15); BUN 26 mg/dL (7-18); BUN/Creat Ratio 20.2 RATIO (10-20); Calcium,Total 8.5 mg/dL (8.5-10.1); Chloride 108 mmol/L (98-107); Creatinine, Serum 1.29 mg/dL (0.70-1.30); EST Glomerular Filtration Rate 63 mL/min (>60); Est Glom Filt Rate - Afr Amer 76 mL/min (>60); Estimated Creatinine Clearance 70.03 ml/min; Glucose 310 mg/dL (74-106); Sodium Level 134 mmol/L (136-145)
[2021-09-23] MEDS: 0.9% Normal Saline 1,000 ML 250 ML IV (21:30)
[2021-09-23] MEDS: LORazepam 1 MG Tablet PO (21:45)
[2021-09-23] MEDS: amLODIPine 5 MG Tablet PO (21:45)
[2021-09-23] MEDS: Losartan Potassium 100 MG Tablet PO (21:47)
--- NOTE | 2021-09-23 21:58 | NURSING ---
Pt currently has insulin drip running. The bag infusing came with him from ED. Titrations have been documented under that order which shows to be discontinued. Asked pharmacy to send a new bag. Per pharmacy, 100mL bags of NS are low so they are being conservative. States to call when current bag is low and they will send a new bag up.
[2021-09-24] VITALS (25 sets, daily range): BP systolic 95–151; BP diastolic 57–81; PULSE 86–102; RESP 22–35; TEMP 36.4–36.8; O2SAT 16–97
[2021-09-24 00:49] LABS: Anion Gap 13 (5-15); BUN 26 mg/dL (7-18); BUN/Creat Ratio 20.8 RATIO (10-20); Chloride 111 mmol/L (98-107); Creatinine, Serum 1.25 mg/dL (0.70-1.30); EST Glomerular Filtration Rate 65 mL/min (>60); Est Glom Filt Rate - Afr Amer 79 mL/min (>60); Estimated Creatinine Clearance 72.27 ml/min; Glucose 332 mg/dL (74-106); Potassium 5.1 mmol/L (3.5-5.1); Sodium Level 134 mmol/L (136-145)
[2021-09-24 01:06] LABS: Bedside Glucose 281 mg/dL (70-110)
[2021-09-24 01:06] LABS: Bedside Glucose 307 mg/dL (70-110)
[2021-09-24] MEDS: 0.9% Normal Saline 1,000 ML 250 ML IV (02:00)
--- NOTE | 2021-09-24 02:37 | NURSING ---
Insulin drip documentation as follows...Units/hr is not an option so units per hour are documented under ml/hr since bag concentration is 1unit/1ml.
[2021-09-24 04:33] LABS: Anion Gap 15 (5-15); BUN 32 mg/dL (7-18); BUN/Creat Ratio 20.5 RATIO (10-20); Calcium,Total 7.7 mg/dL (8.5-10.1); Chloride 112 mmol/L (98-107); Creatinine, Serum 1.56 mg/dL (0.70-1.30); EST Glomerular Filtration Rate 51 mL/min (>60); Est Glom Filt Rate - Afr Amer 61 mL/min (>60); Estimated Creatinine Clearance 57.91 ml/min; Glucose 282 mg/dL (74-106); Sodium Level 135 mmol/L (136-145)
[2021-09-24] MEDS: 0.9% Normal Saline 1,000 ML 125 ML IV (05:06)
[2021-09-24 05:11] LABS: Bedside Glucose 293 mg/dL (70-110)
[2021-09-24 05:11] LABS: Bedside Glucose 285 mg/dL (70-110)
[2021-09-24 05:11] LABS: Bedside Glucose 307 mg/dL (70-110)
[2021-09-24 05:11] LABS: Bedside Glucose 238 mg/dL (70-110)
--- NOTE | 2021-09-24 05:15 | NURSING ---
Dr. Livingston messaged regarding pts CO2 level and current status. He messaged back ok
[2021-09-24 06:31] LABS: Bedside Glucose 243 mg/dL (70-110)
--- NOTE | 2021-09-24 07:27 | PN.HOSP_ITS ---
Subjective Subjective Patient is a 50-year-old gentleman with history of diabetes mellitus type 2 who tested positive for Covid on 09/16/2021 presented to the emergency department with increasing shortness of breath. Patient was also found to be in diabetic ketoacidosis on admission admitted to intensive care unit for further management Objective Data Objective Data Vital Signs: Vital Signs Temp Pulse Resp BP Pulse Ox 98.2 F 90 24 H 122/65 H 96 09/24/21 04:00 09/24/21 06:00 09/24/21 06:00 09/24/21 06:00 09/24/21 06:00 Oxygen Delivery Method Room Air Weight: 92.6 kg Body Mass Index (BMI) 29.6 Intake & Output: Intake and Output for Last 24 Hours 09/22/21 09/23/21 09/24/21 23:59 23:59 23:59 Intake Total 4184.10 / 4184.10 1910.11 / 1910.11 Output Total 820 / 1220 400 / 400 Balance 3364.10 / 2964.10 1510.11 / 1510.11 Lab / Micro Data Result Diagrams: 09/24/21 07:50 09/24/21 12:00 Labs: Laboratory Results - last 24 hr 09/23/21 11:46: WBC 16.2 H, RBC 6.59 H, Hgb 19.6 H*, Hct 58.7 H, MCV 89.1, MCH 29.7, MCHC 33.4, RDW Std Deviation 42.2, RDW Coeff of Pedrito 12.9, Plt Count 232, MPV 10.4, Immature Gran % (Auto) 1.500 H, Neut % (Auto) 85.5 H, Lymph % (Auto) 8.2 L, [place] % (Auto) 4.2, Eos % (Auto) 0.0, Baso % (Auto) 0.6, Absolute Neuts (auto) 13.8 H, Absolute Lymphs (auto) 1.33, Nucleated RBC % 0, Differential Comment COMMENT, Diff Path Review Reviewed 09/23/21 11:46: Sodium 129 L, Potassium 5.5 H, Chloride 94 L, Carbon Dioxide 8.0 L*, Anion Gap 27 H, BUN 31 H, Creatinine 1.81 H, Estim Creat Clear Calc 49.91, Est GFR (MDRD) Af Amer 52 L, Est GFR (MDRD) Non-Af 43 L, BUN/Creatinine Ratio 17.1, Glucose 534 H*, Calcium 9.5, Total Bilirubin 0.70, AST 29, ALT 48, Alkaline Phosphatase 137 H, Total Protein 9.6 H, Albumin 4.0, Globulin 5.6 H, Albumin/Globulin Ratio 0.7 L 09/23/21 11:46: Hemoglobin A1c 10.3 H 09/23/21 13:46: Acetone Level MODERATE H 09/23/21 13:49: POC Glucose 484 H* 09/23/21 16:24: POC Glucose 359 H 09/23/21 17:27: POC Glucose 299 H 09/23/21 18:38: POC Glucose 283 H 09/23/21 18:45: Sodium 134 L, Potassium 5.0, Chloride 108 H, Carbon Dioxide 9.0 L*, Anion Gap 17 H, BUN 26 H, Creatinine 1.29, Estim Creat Clear Calc 70.03, Est GFR (MDRD) Af Amer 76, Est GFR (MDRD) Non-Af 63, BUN/Creatinine Ratio 20.2 H, Glucose 310 H, Calcium 8.5 09/23/21 19:59: POC Glucose 273 H 09/23/21 21:44: POC Glucose 281 H 09/24/21 00:00: Sodium 134 L, Potassium 5.1, Chloride 111 H, Carbon Dioxide 10.0 L, Anion Gap 13, BUN 26 H, Creatinine 1.25, Estim Creat Clear Calc 72.27, Est GFR (MDRD) Af Amer 79, Est GFR (MDRD) Non-Af 65, BUN/Creatinine Ratio 20.8 H, Glucose 332 H, Calcium 8.0 L 09/24/21 00:09: POC Glucose 307 H 09/24/21 01:13: POC Glucose 293 H 09/24/21 02:03: POC Glucose 307 H 09/24/21 02:59: POC Glucose 285 H 09/24/21 04:00: Sodium 135 L, Potassium 5.0, Chloride 112 H, Carbon Dioxide 8.0 L*, Anion Gap 15, BUN 32 H, Creatinine 1.56 H, Estim Creat Clear Calc 57.91, Est GFR (MDRD) Af Amer 61, Est GFR (MDRD) Non-Af 51 L, BUN/Creatinine Ratio 20.5 H, Glucose 282 H, Calcium 7.7 L 09/24/21 04:02: POC Glucose 238 H 09/24/21 06:06: POC Glucose 243 H Radiography Diagnostic Testing: Radiology Impression Chest X-Ray 09/23/21 11:30 IMPRESSION: Increased markings at the lung bases more prominent on the right side suggestive of either bibasilar atelectasis and/or early infiltrate. Electronically Signed: Chris Brito MD at 13:04 EST , Service support , Physical Exam Narrative GENERAL: Appears ill looking HEENT: Atraumatic; dry oral mucosa EYES; Anicteric, Normal Conjunctiva NECK; supple, normal thyroid, RESPIRATORY: Diminished to auscultation CARDIOVASCULAR: Regular S1 S2, GI: soft, normoactive bowel sounds, : No Renal angle tenderness; EXTREMITIES: No edema, no clubbing, MUSCULOSKELETAL: no muscle waisting NEURO: Awake; no lateralizing signs. SKIN: No Rash PSYCH; Flat affect Assessment & Plan Assessment/Plan (1) DKA (diabetic ketoacidoses): QUALIFIERS: Diabetes mellitus complication detail: without coma Diabetes mellitus type: type 2 Qualified Code(s): E11.10 - Type 2 diabetes shani itus with ketoacidosis without coma (2) COVID-19: (3) Acute kidney injury: (4) Acute dehydration: PLAN: Patient is a 50-year-old gentleman with history of diabetes mellitus type 2 who tested positive for Covid on 09/16/2021 presented to the emergency department with increasing shortness of breath. Patient was also found to be in diabetic ketoacidosis on admission admitted to intensive care unit for further management 1. Diabetic ketoacidosis ?Possibly precipitated by patient COVID-19 infection. Admitted to the intensive care unit patient being managed with aggressive IV fluid resuscitation, correction of electrolyte abnormalities and serial monitoring of electrolytes and subsequent adjustment insulin and fluid regimen 2. COVID 19 pneumonia ?Patient did receive monoclonal antibody prior to his admission. Plan is to continue with supportive care at this point. Patient not requiring oxygen Decadron and remdesivir therefore not indicated 3. Acute kidney injury ?Do suspect ATN from severe dehydration patient is on IV fluid with subsequent monitoring of electrolytes 4. Hypertension - Blood pressure controlled, and is on losartan held in view of impaired kidney function 5. Allergic rhinitis ?On loratadine as needed 6. Class I obesity with BMI of 30.1 ?Weight loss advised 7. DVT prophylaxis ?Enoxaparin Total critical care time spent evaluating patient reviewing diagnostic data with subsequent monitoring of electrolytes and adjustment to patient's fluid and other therapy as well as discussion with nursing staff; 70-minute Charges/Coding Multi Select Codes Hospitalists' Procedures Procedures: 09933 Critial Care 1st Hr and 14818 Critial Care Addl 30 Min
[2021-09-24] MEDS: Dext 5%-0.45% NS 1,000 ML 150 ML IV ×3 (07:54→22:29)
[2021-09-24] MEDS: Enoxaparin 40 MG/0.4 ML Syringe SC (07:59)
[2021-09-24] MEDS: Losartan Potassium 100 MG Tablet PO (07:59)
[2021-09-24 08:13] LABS: Basophil# 0.03 X10^3/uL; Basophil% 0.2 % (0-1); Hematocrit 46.4 % (40-54); Hemoglobin 15.8 g/dL (13.0-16.5); Mean Corp Hgb Conc 34.1 g/dL (32-36); Mean Corpuscular Volume 88.2 fL (80-94); Mean Platelet Vol. 10.6 fl (6.2-12.0); Monocyte# 0.94 X10^3/uL; Monocyte% 5.7 % (0-10); NRBC Flagged by Analyzer 0 % (0-5); Neutrophil # 13.96 X10^3/uL (2.7-7.7); Neutrophil % 84.1 % (47-70); Platelet Count 175 K/mm3 (150-450); RBC Distribution Width CV 13.1 % (11.6-14.6); RBC Distribution Width SD 42.4 fl (35.1-43.9); Red Blood Count 5.26 M/mm3 (4.6-6.2); White Blood Count 16.6 K/mm3 (4.4-11.0)
[2021-09-24] MEDS: Ondansetron 4 MG/2 ML Vial IV (08:48)
[2021-09-24] MEDS: 0.9% Saline Lock 10 ML Syringe IV (08:49)
[2021-09-24 09:01] LABS: Bedside Glucose 276 mg/dL (70-110)
[2021-09-24 09:01] LABS: Bedside Glucose 235 mg/dL (70-110)
[2021-09-24 09:16] LABS: Anion Gap 13 (5-15); BUN 40 mg/dL (7-18); BUN/Creat Ratio 19.9 RATIO (10-20); Calcium,Total 8.4 mg/dL (8.5-10.1); Chloride 112 mmol/L (98-107); Creatinine, Serum 2.01 mg/dL (0.70-1.30); EST Glomerular Filtration Rate 38 mL/min (>60); Est Glom Filt Rate - Afr Amer 46 mL/min (>60); Estimated Creatinine Clearance 44.94 ml/min; Glucose 238 mg/dL (74-106); Potassium 4.2 mmol/L (3.5-5.1); Sodium Level 136 mmol/L (136-145)
[2021-09-24 11:50] LABS: Bedside Glucose 226 mg/dL (70-110)
[2021-09-24 11:50] LABS: Bedside Glucose 248 mg/dL (70-110)
[2021-09-24 12:15] LABS: Bedside Glucose 217 mg/dL (70-110)
[2021-09-24 12:25] LABS: Anion Gap 10 (5-15); BUN 44 mg/dL (7-18); BUN/Creat Ratio 20.9 RATIO (10-20); Calcium,Total 8.4 mg/dL (8.5-10.1); Chloride 113 mmol/L (98-107); Creatinine, Serum 2.11 mg/dL (0.70-1.30); EST Glomerular Filtration Rate 36 mL/min (>60); Est Glom Filt Rate - Afr Amer 43 mL/min (>60); Estimated Creatinine Clearance 42.81 ml/min; Glucose 198 mg/dL (74-106); Potassium 4.3 mmol/L (3.5-5.1); Sodium Level 137 mmol/L (136-145)
--- NOTE | 2021-09-24 13:22 | CASEMGMT ---
RN CM called patient in room for initial transition planning/care coordination assessment. RN CM introduced self and role at [facility]. Patient is alert and oriented. Patient willing to participate in assessment and is able to answer all questions appropriately. Care providers, pharmacy, and demographics verified. Patient wishes to discharge home, denies need for home health at this time. Patient states he has no further needs or concerns at this time. CM to follow for discharge planning needs that may arise. PCP: Tobi PARMAR Specialists: none Preferred Pharmacy: [facility] retail at discharge Insurance: [employer] Prescription Benefit: yes Living Will/HPOA: yes, Lotus Nguyen LNOK: , step son Living Arrangements: Patient lives in a single story with no steps to enter. Patient states he is independent at home. Transportation: self/ DME/HHC: patient states has cane, raised toilet, grab bar, glucometer and testing supplies. Patient states he has not been testing his BS. RN CM encourage patient to monitor his blood sugars at home. Disposition Plan: Patient to discharge home with family support and follow-up plans in place. Rosalind REAGAN, RN, CM
[2021-09-24 13:35] LABS: Bedside Glucose 183 mg/dL (70-110)
[2021-09-24 15:26] LABS: Bedside Glucose 174 mg/dL (70-110)
[2021-09-24 15:26] LABS: Bedside Glucose 177 mg/dL (70-110)
[2021-09-24 16:33] LABS: Anion Gap 10 (5-15); BUN 50 mg/dL (7-18); BUN/Creat Ratio 20.3 RATIO (10-20); Calcium,Total 8.2 mg/dL (8.5-10.1); Chloride 115 mmol/L (98-107); Creatinine, Serum 2.46 mg/dL (0.70-1.30); EST Glomerular Filtration Rate 30 mL/min (>60); Est Glom Filt Rate - Afr Amer 36 mL/min (>60); Estimated Creatinine Clearance 36.72 ml/min; Glucose 121 mg/dL (74-106); Potassium 3.8 mmol/L (3.5-5.1); Sodium Level 138 mmol/L (136-145)
[2021-09-24 17:31] LABS: Bedside Glucose 157 mg/dL (70-110)
[2021-09-24 18:15] LABS: Bedside Glucose 153 mg/dL (70-110)
[2021-09-24 21:14] LABS: Anion Gap 8 (5-15); BUN 44 mg/dL (7-18); BUN/Creat Ratio 22.1 RATIO (10-20); Calcium,Total 6.2 mg/dL (8.5-10.1); Chloride 123 mmol/L (98-107); Creatinine, Serum 1.99 mg/dL (0.70-1.30); EST Glomerular Filtration Rate 38 mL/min (>60); Est Glom Filt Rate - Afr Amer 46 mL/min (>60); Glucose 107 mg/dL (74-106); Potassium 2.8 mmol/L (3.5-5.1); Sodium Level 142 mmol/L (136-145)
--- NOTE | 2021-09-24 22:16 | NURSING ---
Text message sent to Dr. Livingston regarding pts lab results including Potassium of 2.8. He responded He will look into things
[2021-09-25] VITALS (20 sets, daily range): BP systolic 123–165; BP diastolic 68–90; PULSE 80–95; RESP 18–29; TEMP 35.8–36.8; O2SAT 93–98
[2021-09-25 00:01] LABS: Bedside Glucose 149 mg/dL (70-110)
[2021-09-25 00:01] LABS: Bedside Glucose 136 mg/dL (70-110)
[2021-09-25] MEDS: Calcium Gluconate 1 GM/10 ML Vial IV (00:17)
[2021-09-25] MEDS: Potassium Chloride 10mEq/100mL 10 MEQ/100 ML IV.SOLN. 100 MEQ IV BOLUS ×6 (00:18→14:05)
[2021-09-25 00:50] LABS: Bedside Glucose 85 mg/dL (70-110)
[2021-09-25 01:04] LABS: Anion Gap 9 (5-15); BUN 50 mg/dL (7-18); Calcium,Total 6.9 mg/dL (8.5-10.1); Chloride 122 mmol/L (98-107); Creatinine, Serum 2.27 mg/dL (0.70-1.30); EST Glomerular Filtration Rate 33 mL/min (>60); Est Glom Filt Rate - Afr Amer 40 mL/min (>60); Glucose 114 mg/dL (74-106); Potassium 3.2 mmol/L (3.5-5.1); Sodium Level 142 mmol/L (136-145)
[2021-09-25 04:45] LABS: Absolute Lymphocyte Count 0.77 X10^3/uL (0.83-4.51); Absolute Neutrophil Count 9.6 X10^3/uL (2.0-7.7); Basophil# 0.02 X10^3/uL; Basophil% 0.2 % (0-1); Hematocrit 44.7 % (40-54); Hemoglobin 14.9 g/dL (13.0-16.5); Lymphocyte # 0.77 X10^3/ul (0.83-4.51); Lymphocyte % 6.9 % (19-41); Mean Corp Hgb Conc 33.3 g/dL (32-36); Mean Corpuscular Hgb 29.5 pg (27.0-32.0); Mean Corpuscular Volume 88.5 fL (80-94); Mean Platelet Vol. 9.9 fl (6.2-12.0); Monocyte# 0.69 X10^3/uL; Monocyte% 6.2 % (0-10); NRBC Flagged by Analyzer 0 % (0-5); Neutrophil % 85.9 % (47-70); Platelet Count 122 K/mm3 (150-450); RBC Distribution Width CV 13.2 % (11.6-14.6); RBC Distribution Width SD 42.8 fl (35.1-43.9); Red Blood Count 5.05 M/mm3 (4.6-6.2); White Blood Count 11.2 K/mm3 (4.4-11.0)
[2021-09-25 05:10] LABS: Bedside Glucose 127 mg/dL (70-110)
[2021-09-25 05:10] LABS: Bedside Glucose 134 mg/dL (70-110)
[2021-09-25 05:10] LABS: Bedside Glucose 131 mg/dL (70-110)
[2021-09-25 05:10] LABS: Bedside Glucose 131 mg/dL (70-110)
[2021-09-25 05:30] LABS: Bedside Glucose 145 mg/dL (70-110)
--- NOTE | 2021-09-25 06:53 | NURSING ---
Spoke with lab asking when the 0 BMP will be resulted. She stated it was put in for a redraw and she will send a tech up to redraw it.
[2021-09-25] MEDS: Dext 5%-0.45% NS 1,000 ML 150 ML IV (07:00)
[2021-09-25 07:20] LABS: Bedside Glucose 135 mg/dL (70-110)
[2021-09-25 07:20] LABS: Bedside Glucose 158 mg/dL (70-110)
--- NOTE | 2021-09-25 07:20 | PN.HOSP_ITS ---
Subjective Subjective Patient seen, anion gap is closed however acidosis remains in his kidney function is worsening. Patient insulin drip was discontinued started on scheduled insulin in addition to oral diet. Patient was also started on bicarb drip and consultation placed to nephrology Objective Data Objective Data Vital Signs: Vital Signs Temp Pulse Resp BP Pulse Ox 98.2 F 89 29 H 161/83 H 97 09/25/21 04:00 09/25/21 07:00 09/25/21 07:00 09/25/21 07:00 09/25/21 07:00 Oxygen Delivery Method Room Air Weight: 92.5 kg Body Mass Index (BMI) 29.6 Intake & Output: Intake and Output for Last 24 Hours 09/23/21 09/24/21 09/25/21 23:59 23:59 23:59 Intake Total 4184.10 / 4184.10 4370.58 / 4470.58 1260.72 / 1260.72 Output Total 820 / 1220 750 / 1770 1520 / 1520 Balance 3364.10 / 2964.10 3620.58 / 2700.58 -259.28 / -259.28 Lab / Micro Data Result Diagrams: 09/25/21 04:30 09/25/21 07:55 Labs: Laboratory Results - last 24 hr 09/24/21 07:47: POC Glucose 235 H 09/24/21 07:50: Sodium Cancelled, Potassium Cancelled, Chloride Cancelled, Carbon Dioxide Cancelled, Anion Gap Cancelled, BUN Cancelled, Creatinine Cancelled, Estim Creat Clear Calc Cancelled, Est GFR (MDRD) Af Amer Cancelled, Est GFR (MDRD) Non-Af Cancelled, BUN/Creatinine Ratio Cancelled, Glucose Cancelled, Calcium Cancelled 09/24/21 07:50: WBC 16.6 H, RBC 5.26, Hgb 15.8, Hct 46.4, MCV 88.2, MCH 30.0, MCHC 34.1, RDW Std Deviation 42.4, RDW Coeff of Pedrito 13.1, Plt Count 175, MPV 10. 6, Immature Gran % (Auto) 1.000 H, Neut % (Auto) 84.1 H, Lymph % (Auto) 9.0 L, [place] % (Auto) 5.7, Eos % (Auto) 0.0, Baso % (Auto) 0.2, Absolute Neuts (auto) 14.0 H, Absolute Lymphs (auto) 1.50, Nucleated RBC % 0 09/24/21 08:47: Sodium 136, Potassium 4.2, Chloride 112 H, Carbon Dioxide 11.0 L , Anion Gap 13, BUN 40 H, Creatinine 2.01 H, Estim Creat Clear Calc 44.94, Est GFR (MDRD) Af Amer 46 L, Est GFR (MDRD) Non-Af 38 L, BUN/Creatinine Ratio 19.9, Glucose 238 H, Calcium 8.4 L 09/24/21 08:51: POC Glucose 276 H 09/24/21 09:45: POC Glucose 248 H 09/24/21 10:48: POC Glucose 226 H 09/24/21 11:49: POC Glucose 217 H 09/24/21 12:00: Sodium 137, Potassium 4.3, Chloride 113 H, Carbon Dioxide 14.0 L , Anion Gap 10, BUN 44 H, Creatinine 2.11 H, Estim Creat Clear Calc 42.81, Est GFR (MDRD) Af Amer 43 L, Est GFR (MDRD) Non-Af 36 L, BUN/Creatinine Ratio 20.9 H , Glucose 198 H, Calcium 8.4 L 09/24/21 13:05: POC Glucose 183 H 09/24/21 13:55: POC Glucose 177 H 09/24/21 15:07: POC Glucose 174 H 09/24/21 16:06: POC Glucose 157 H 09/24/21 16:10: Sodium 138, Potassium 3.8, Chloride 115 H, Carbon Dioxide 13.0 L , Anion Gap 10, BUN 50 H, Creatinine 2.46 H, Estim Creat Clear Calc 36.72, Est GFR (MDRD) Af Amer 36 L, Est GFR (MDRD) Non-Af 30 L, BUN/Creatinine Ratio 20.3 H , Glucose 121 H, Calcium 8.2 L 09/24/21 18:08: POC Glucose 153 H 09/24/21 20:00: Sodium 142, Potassium 2.8 L, Chloride 123 H, Carbon Dioxide 11.0 L, Anion Gap 8, BUN 44 H, Creatinine 1.99 H, Estim Creat Clear Calc 45.40, Est GFR (MDRD) Af Amer 46 L, Est GFR (MDRD) Non-Af 38 L, BUN/Creatinine Ratio 22.1 H , Glucose 107 H, Calcium 6.2 L* 09/24/21 20:19: POC Glucose 149 H 09/24/21 22:07: POC Glucose 136 H 09/25/21 00:12: POC Glucose 85 09/25/21 00:30: Sodium 142, Potassium 3.2 L, Chloride 122 H, Carbon Dioxide 11.0 L, Anion Gap 9, BUN 50 H, Creatinine 2.27 H, Estim Creat Clear Calc 39.80, Est GFR (MDRD) Af Amer 40 L, Est GFR (MDRD) Non-Af 33 L, BUN/Creatinine Ratio 22.0 H , Glucose 114 H, Calcium 6.9 L 09/25/21 01:08: POC Glucose 131 H 09/25/21 02:09: POC Glucose 131 H 09/25/21 03:15: POC Glucose 134 H 09/25/21 04:30: WBC 11.2 H, RBC 5.05, Hgb 14.9, Hct 44.7, MCV 88.5, MCH 29.5, MCHC 33.3, RDW Std Deviation 42.8, RDW Coeff of Pedrito 13.2, Plt Count 122 L, MPV 9.9, Immature Gran % (Auto) 0.800, Neut % (Auto) 85.9 H, Lymph % (Auto) 6.9 L, Valley % (Auto) 6.2, Eos % (Auto) 0.0, Baso % (Auto) 0.2, Absolute Neuts (auto) 9.6 H, Absolute Lymphs (auto) 0.77 L, Nucleated RBC % 0 09/25/21 04:30: Sodium Cancelled, Potassium Cancelled, Chloride Cancelled, Carbon Dioxide Cancelled, Anion Gap Cancelled, BUN Cancelled, Creatinine Cancelled, Estim Creat Clear Calc Cancelled, Est GFR (MDRD) Af Amer Cancelled, Est GFR (MDRD) Non-Af Cancelled, BUN/Creatinine Ratio Cancelled, Glucose Cancelled, Calcium Cancelled, Magnesium Cancelled 09/25/21 04:33: POC Glucose 127 H 09/25/21 05:08: POC Glucose 145 H Physical Exam Narrative GENERAL: Appears ill looking HEENT: Atraumatic; dry oral mucosa EYES; Anicteric, Normal Conjunctiva NECK; supple, normal thyroid, RESPIRATORY: Diminished to auscultation CARDIOVASCULAR: Regular S1 S2, GI: soft, normoactive bowel sounds, : No Renal angle tenderness; EXTREMITIES: No edema, no clubbing, MUSCULOSKELETAL: no muscle waisting NEURO: Awake; no lateralizing signs. SKIN: No Rash PSYCH; Flat affect Assessment & Plan Assessment/Plan (1) DKA (diabetic ketoacidoses): QUALIFIERS: Diabetes mellitus complication detail: without coma Diabetes mellitus type: type 2 Qualified Code(s): E11.10 - Type 2 diabetes mellitus with ketoacidosis without coma (2) COVID-19: (3) Acute kidney injury: (4) Acute dehydration: PLAN: Patient is a 50-year-old gentleman with history of diabetes mellitus type 2 who tested positive for Covid on 09/16/2021 presented to the emergency department with increasing shortness of breath. Patient was also found to be in diabetic ketoacidosis on admission admitted to intensive care unit for further management 1. Diabetic ketoacidosis ?Possibly precipitated by patient COVID-19 infection. Admitted to the intensive care unit patient being managed with aggressive IV fluid resuscitation, correction of electrolyte abnormalities and serial monitoring of electrolytes and subsequent adjustment insulin and fluid regimen -09/25/2021; 2. COVID 19 pneumonia ?Patient did receive monoclonal antibody prior to his admission. Plan is to continue with supportive care at this point. Patient not requiring oxygen Decadron and remdesivir therefore not indicated 3. Acute kidney injury ?Do suspect ATN from severe dehydration patient is on IV fluid with subsequent monitoring of electrolytes -Patient kidney function worsening, did continue with IV fluid and consultation placed to nephrology 4. Metabolic acidosis ?Initially attributed to patient DKA however due to suspect his impaired kidney function contributing. Patient started on bicarb drip with consultation placed to nephrology 5. Hypertension - Blood pressure controlled, and is on losartan held in view of impaired kidney function 6. Allergic rhinitis ?On loratadine as needed 7. Class I obesity with BMI of 30.1 ?Weight loss advised 8. DVT prophylaxis ?Enoxaparin 9. Hypokalemia -corrected per protocol Charges/Coding Visit Charges Inpatient E&M: 83167 Subs Hosp L3
--- NOTE | 2021-09-25 07:54 | PCS.PANDOC ---
PANDEMIC DOCUMENTATION INITIATED: Date: 09/25/21 Time: 0700
[2021-09-25] MEDS: Enoxaparin 40 MG/0.4 ML Syringe SC (08:20)
[2021-09-25] MEDS: Losartan Potassium 100 MG Tablet PO (08:20)
[2021-09-25 08:33] LABS: Anion Gap 10 (5-15); BUN 55 mg/dL (7-18); BUN/Creat Ratio 19.8 RATIO (10-20); Calcium,Total 8.3 mg/dL (8.5-10.1); Chloride 117 mmol/L (98-107); Creatinine, Serum 2.78 mg/dL (0.70-1.30); EST Glomerular Filtration Rate 26 mL/min (>60); Est Glom Filt Rate - Afr Amer 31 mL/min (>60); Glucose 139 mg/dL (74-106); Magnesium 2.7 mg/dL (1.6-2.6); Potassium 3.4 mmol/L (3.5-5.1); Sodium Level 138 mmol/L (136-145)
[2021-09-25 09:35] LABS: Bedside Glucose 153 mg/dL (70-110)
[2021-09-25 10:25] LABS: Bedside Glucose 153 mg/dL (70-110)
[2021-09-25 12:25] LABS: Bedside Glucose 119 mg/dL (70-110)
[2021-09-25 12:25] LABS: Bedside Glucose 99 mg/dL (70-110)
[2021-09-25 12:25] LABS: Bedside Glucose 121 mg/dL (70-110)
[2021-09-25] MEDS: 0.9% Saline Lock 10 ML Syringe IV (15:15)
[2021-09-25 15:20] LABS: Bedside Glucose 303 mg/dL (70-110)
--- NOTE | 2021-09-25 16:11 | CON.PCM.RE_ITS ---
Assessment & Plan Assessment/Plan (1) Acute kidney injury: PLAN: Baseline serum creatinine is 0.8 mg/dL. The patient has no prior history of CKD. MONE is likely due to decreased effective blood volume in the setting of COVID-19 infection and DKA. I will check urinalysis and urine indices. The patient is on hypotonic bicarbonate drip. I encourage oral solute and fluid intake. We will stop losartan for now since renal function is worsening. We will watch blood pressure while the patient is off of losartan. There is no urgent need for kidney replacement therapy. Current medications are reviewed. Estimated creatinine clearance is around 43 mL/min. Therefore, there is no need to change dosages of medications at this point. (2) Metabolic acidosis: PLAN: The patient initially had high anion gap metabolic acidosis presumably due to DKA. However, anion gap has closed, but acidosis has persisted. The patient denies diarrhea or loose bowel movement. I will check urine anion gap. The patient is currently getting IV hypotonic sodium bicarbonate drip (50 mEq sodium bicarbonate per liter of D5W). We will check serum bicarbonate level again tomorrow. Watch potassium and calcium levels since the patient is receiving bicarbonate drip. (3) Essential hypertension: PLAN: Stop losartan for now since serum creatinine is increasing. I will start the patient on amlodipine instead. Aim for blood pressure of below 150/90. Continue to monitor blood pressure. (4) Hypokalemia: PLAN: Potassium level is 3.4 today. Magnesium is not low. Part of this could be due to diuresis. However, he is also receiving IV sodium bicarbonate which could also contribute to low potassium. Replace potassium deficit as per primary service. Recheck potassium level tomorrow. (5) Type 2 diabetes mellitus: (6) COVID-19: HPI Consult Data Date of Consult: 09/25/21 HPI Narrative Reason for Consultation: MONE HPI Narrative: SAIMA AMAYA is a 50-year-old man with past history of type 2 diabetes mellitus and hypertension is admitted on 09/23/2021 with COVID-19 pneumonia and DKA. The patient was tested positive for COVID-19 on 09/16/2021. The patient was treated with monoclonal antibody on 09/22/2021 and with 5-day course of corticosteroids prior to admission. Nephrology is asked see the patient because of MONE. His serum creatinine at baseline is 0.8 mg/dL (07/18/2021). Serum creatinine was 1.29 mg/dL on presentation. However, creatinine has gradually increased over the past 2 days, and serum creatinine is now 2.78 mg/dL. The patient denies current chest pain. Dyspnea has improved compared to yesterday. He denies nausea, vomiting or diarrhea. However, appetite has been poor prior to and since admission. The patient is on losartan for hypertension. However, he reports that he has not been taking any medication for around 1 week prior to admission. The patient denies increasing edema of the lower extremities. There has been no gross hematuria or dysuria. On review of vital signs, there has been no recent prolonged hypotension. [facility] Medical History Arthritis COVID-19 History of type 2 diabetes mellitus Hypertension Home Medications losartan 100 mg PO DAILY 12/11/20 [History Last Taken Unknown] glipizide 10 mg PO DAILY 09/22/21 [History Last Taken Unknown] loratadine 10 mg PO DAILY PRN 09/22/21 [History Last Taken Unknown] Allergy/AdvReac Type Severity Reaction Status Date / Time No Known Allergies Allergy Verified 09/23/21 11:18 Family History (Updated 09/23/21 @ 14:[address] Richard Lopez DO) Other Diabetes Surgical History History of hip replacement Social History Smoking Status: Current every day smoker tobacco type: cigarettes alcohol intake: current ROS ROS Narrative 10 out of 10 review of system was done and otherwise noncontributory. Physical Exam Narrative General: Alert, oriented x3. No apparent distress. HEENT: Normocephalic, atraumatic. Mucous membrane dry. No mucosal erythema. PERRLA, EOMI. Neck: Supple, no JVD. Heart: Normal S1, S2. No rubs, murmurs or gallops. Lungs: Clear to auscultation bilaterally. Abdomen: Normal bowel sound, soft, nontender, no guarding or rebound. Extremity: No clubbing, cyanosis, or edema. Full passive range of motion. Neurologic: No focal neurologic deficits. Psychiatric: Affect is flat. Skin: Skin is warm and dry without rash. Lab / Micro Data Result Diagrams: 09/25/21 04:30 09/25/21 07:55 Labs: Laboratory Results - last 24 hr 09/24/21 16:06: POC Glucose 157 H 09/24/21 16:10: Sodium 138, Potassium 3.8, Chloride 115 H, Carbon Dioxide 13.0 L , Anion Gap 10, BUN 50 H, Creatinine 2.46 H, Estim Creat Clear Calc 36.72, Est GFR (MDRD) Af Amer 36 L, Est GFR (MDRD) Non-Af 30 L, BUN/Creatinine Ratio 20.3 H , Glucose 121 H, Calcium 8.2 L 09/24/21 18:08: POC Glucose 153 H 09/24/21 20:00: Sodium 142, Potassium 2.8 L, Chloride 123 H, Carbon Dioxide 11.0 L, Anion Gap 8, BUN 44 H, Creatinine 1.99 H, Estim Creat Clear Calc 45.40, Est GFR (MDRD) Af Amer 46 L, Est GFR (MDRD) Non-Af 38 L, BUN/Creatinine Ratio 22.1 H , Glucose 107 H, Calcium 6.2 L* 09/24/21 20:19: POC Glucose 149 H 09/24/21 22:07: POC Glucose 136 H 09/25/21 00:12: POC Glucose 85 09/25/21 00:30: Sodium 142, Potassium 3.2 L, Chloride 122 H, Carbon Dioxide 11.0 L, Anion Gap 9, BUN 50 H, Creatinine 2.27 H, Estim Creat Clear Calc 39.80, Est GFR (MDRD) Af Amer 40 L, Est GFR (MDRD) Non-Af 33 L, BUN/Creatinine Ratio 22.0 H , Glucose 114 H, Calcium 6.9 L 09/25/21 01:08: POC Glucose 131 H 09/25/21 02:09: POC Glucose 131 H 09/25/21 03:15: POC Glucose 134 H 09/25/21 04:30: WBC 11.2 H, RBC 5.05, Hgb 14.9, Hct 44.7, MCV 88.5, MCH 29.5, MCHC 33.3, RDW Std Deviation 42.8, RDW Coeff of Pedrito 13.2, Plt Count 122 L, MPV 9.9, Immature Gran % (Auto) 0.800, Neut % (Auto) 85.9 H, Lymph % (Auto) 6.9 L, [place] % (Auto) 6.2, Eos % (Auto) 0.0, Baso % (Auto) 0.2, Absolute Neuts (auto) 9.6 H, Absolute Lymphs (auto) 0.77 L, Nucleated RBC % 0 09/25/21 04:30: Sodium Cancelled, Potassium Cancelled, Chloride Cancelled, Carbon Dioxide Cancelled, Anion Gap Cancelled, BUN Cancelled, Creatinine Cancelled, Estim Creat Clear Calc Cancelled, Est GFR (MDRD) Af Amer Cancelled, Est GFR (MDRD) Non-Af Cancelled, BUN/Creatinine Ratio Cancelled, Glucose Cancelled, Calcium Cancelled, Magnesium Cancelled 09/25/21 04:33: POC Glucose 127 H 09/25/21 05:08: POC Glucose 145 H 09/25/21 05:56: POC Glucose 135 H 09/25/21 06:59: POC Glucose 158 H 09/25/21 07:55: Sodium 138, Potassium 3.4 L, Chloride 117 H, Carbon Dioxide 11.0 L, Anion Gap 10, BUN 55 H, Creatinine 2.78 H, Estim Creat Clear Calc 32.50, Est GFR (MDRD) Af Amer 31 L, Est GFR (MDRD) Non-Af 26 L, BUN/Creatinine Ratio 19.8, Glucose 139 H, Calcium 8.3 L, Magnesium 2.7 H 09/25/21 08:12: POC Glucose 153 H 09/25/21 09:26: POC Glucose 153 H 09/25/21 10:30: POC Glucose 121 H 09/25/21 11:39: POC Glucose 119 H 09/25/21 12:11: POC Glucose 99 09/25/21 15:10: POC Glucose 303 H
[2021-09-25] MEDS: Insulin Lispro 100 UNIT/ML INSULN.PEN SC ×3 (17:23→20:56)
[2021-09-25 17:30] LABS: Bedside Glucose 311 mg/dL (70-110)
[2021-09-25 19:07] LABS: Anion Gap 11 (5-15); BUN 59 mg/dL (7-18); BUN/Creat Ratio 20.6 RATIO (10-20); Calcium,Total 8.4 mg/dL (8.5-10.1); Chloride 118 mmol/L (98-107); Creatinine, Serum 2.86 mg/dL (0.70-1.30); EST Glomerular Filtration Rate 25 mL/min (>60); Est Glom Filt Rate - Afr Amer 30 mL/min (>60); Estimated Creatinine Clearance 31.59 ml/min; Glucose 315 mg/dL (74-106); Potassium 4.2 mmol/L (3.5-5.1); Sodium Level 138 mmol/L (136-145)
[2021-09-25 21:10] LABS: Bedside Glucose 261 mg/dL (70-110)
[2021-09-25 23:17] LABS: Bacteria 0 SEEN /hpf (None Seen); Mucous, Urine 0 SEEN /hpf (<or=2+); Red Blood Cells-Urine 0 SEEN /hpf (0-5); Squamous Epithelial Cells - UA 0 SEEN /hpf (0-5); White Blood Cells 0 SEEN /hpf (0-5)
[2021-09-25 23:32] LABS: Color, Urine Yellow (Yellow); Glucose, Dipstick 250 mg/dl (Normal); Ketone-Dipstick Negative (Negative); Leukocyte Esterase-Dipstick Negative /ul (Negative); Nitrite-Dipstick Negative (Negative); Occult Blood-Urine 25 /ul (Negative); Protein-Dipstick 30 mg/dl (Negative); Specific Gravity, Urine 1.005 (1.002-1.030); Urine Bilirubin Dipstick Negative (Negative); Urine Clarity Clear (Clear); Urine Urobilinogen Normal (Normal)
[2021-09-25 23:34] LABS: Urine Chloride 44 mmol/L (Not Establ.); Urine Sodium 42 mmol/L (Not Establ.)
[2021-09-26] VITALS (9 sets, daily range): BP systolic 146–165; BP diastolic 82–97; PULSE 89–98; RESP 18–22; TEMP 36.4–36.7; O2SAT 95–100
--- NOTE | 2021-09-26 04:42 | NURSING ---
staff responded to spo2 montior not recording pt vitals. This nurse obsvered pt lying in bed with IV pole on top of him. gown and IV was removed and laying on the floor. pt stated went to use restroom and didnt know he was hooked up educated pt on importance of using call light for needs. encouraged pt to utilize call light and ask staff for assistance. pt resting in bed at this time with call light within reach. bed exit set
[2021-09-26] MEDS: Insulin Lispro 100 UNIT/ML INSULN.PEN SC ×3 (04:53→20:35)
[2021-09-26 05:01] LABS: Bedside Glucose 300 mg/dL (70-110)
[2021-09-26 07:31] LABS: Absolute Lymphocyte Count 0.59 X10^3/uL (0.83-4.51); Absolute Neutrophil Count 7.4 X10^3/uL (2.0-7.7); Basophil# 0.01 X10^3/uL; Basophil% 0.1 % (0-1); Hematocrit 46.6 % (40-54); Lymphocyte # 0.59 X10^3/ul (0.83-4.51); Lymphocyte % 6.9 % (19-41); Mean Corp Hgb Conc 34.3 g/dL (32-36); Mean Corpuscular Volume 87.3 fL (80-94); Mean Platelet Vol. 10.7 fl (6.2-12.0); Monocyte# 0.55 X10^3/uL; Monocyte% 6.4 % (0-10); NRBC Flagged by Analyzer 0 % (0-5); Neutrophil # 7.38 X10^3/uL (2.7-7.7); Neutrophil % 85.8 % (47-70); POSITIVE DIFFERENTIAL YES; Platelet Count 123 K/mm3 (150-450); RBC Distribution Width CV 13.2 % (11.6-14.6); RBC Distribution Width SD 42.3 fl (35.1-43.9); Red Blood Count 5.34 M/mm3 (4.6-6.2); White Blood Count 8.6 K/mm3 (4.4-11.0)
--- NOTE | 2021-09-26 07:33 | PN.HOSP_ITS ---
Subjective Subjective Per nursing staff patient was delirious during the night. He apparently urinated in an emesis bag and placed on the floor. His bicarb levels continue to decline and his kidney function continued to worsen. His bicarb drip subsequently restarted. Patient kept n.p.o. adjusted insulin level. He also has a significant drop in his platelet count down to 122 from admitting level of 232 Objective Data Objective Data Vital Signs: Vital Signs Temp Pulse Resp BP Pulse Ox 97.6 F L 98 22 H 146/90 H 98 09/26/21 02:18 09/26/21 02:18 09/26/21 02:18 09/26/21 02:18 09/26/21 02:18 Oxygen Delivery Method Room Air Weight: 91.7 kg Body Mass Index (BMI) 29.6 Intake & Output: Intake and Output for Last 24 Hours 09/24/21 09/25/21 09/26/21 23:59 23:59 23:59 Intake Total 4370.58 / 4470.58 3314.12 / 3314.12 1400 / 1400 Output Total 750 / 1770 2620 / 2620 350 / 350 Balance 3620.58 / 2700.58 694.12 / 694.12 1050 / 1050 Lab / Micro Data Result Diagrams: 09/26/21 06:24 09/26/21 08:48 Labs: Laboratory Results - last 24 hr 09/25/21 07:55: Sodium 138, Potassium 3.4 L, Chloride 117 H, Carbon Dioxide 11.0 L, Anion Gap 10, BUN 55 H, Creatinine 2.78 H, Estim Creat Clear Calc 32.50, Est GFR (MDRD) Af Amer 31 L, Est GFR (MDRD) Non-Af 26 L, BUN/Creatinine Ratio 19.8, Glucose 139 H, Calcium 8.3 L, Magnesium 2.7 H 09/25/21 08:12: POC Glucose 153 H 09/25/21 09:26: POC Glucose 153 H 09/25/21 10:30: POC Glucose 121 H 09/25/21 11:39: POC Glucose 119 H 09/25/21 12:11: POC Glucose 99 09/25/21 15:10: POC Glucose 303 H 09/25/21 17:14: POC Glucose 311 H 09/25/21 18:30: Sodium 138, Potassium 4.2, Chloride 118 H, Carbon Dioxide 9.0 L* , Anion Gap 11, BUN 59 H, Creatinine 2.86 H, Estim Creat Clear Calc 31.59, Est GFR (MDRD) Af Amer 30 L, Est GFR (MDRD) Non-Af 25 L, BUN/Creatinine Ratio 20.6 H , Glucose 315 H, Calcium 8.4 L 09/25/21 19:00: Urine Color Yellow, Urine Clarity Clear, Urine pH 6.0, Ur Specific [place] 1.005, Urine Protein 30 H, Urine Glucose (UA) 250 H, Urine Ketones Negative, Urine Occult Blood 25 H, Urine Nitrite Negative, Urine Bilirubin Negative, Urine Urobilinogen Normal, Ur Leukocyte Esterase Negative, Urine RBC 0 SEEN, Urine WBC 0 SEEN, Ur Squamous Epith Cells 0 SEEN, Urine Bacteria 0 SEEN, Urine Mucus 0 SEEN 09/25/21 19:00: Ur Random Sodium 42, Urine Creatinine 25.10, Urine Potassium 7.0, Urine Chloride 44 09/25/21 20:39: POC Glucose 261 H 09/26/21 04:52: POC Glucose 300 H Physical Exam Narrative GENERAL: Appears ill looking HEENT: Atraumatic; dry oral mucosa EYES; Anicteric, Normal Conjunctiva NECK; supple, normal thyroid, RESPIRATORY: Diminished to auscultation CARDIOVASCULAR: Regular S1 S2, GI: soft, normoactive bowel sounds, : No Renal angle tenderness; EXTREMITIES: No edema, no clubbing, MUSCULOSKELETAL: no muscle waisting NEURO: Awake; no lateralizing signs. SKIN: No Rash PSYCH; Flat affect Assessment & Plan Assessment/Plan (1) DKA (diabetic ketoacidoses): QUALIFIERS: Diabetes mellitus complication detail: without coma Diabetes mellitus type: type 2 Qualified Code(s): E11.10 - Type 2 diabetes mellitus with ketoacidosis without coma (2) COVID-19: (3) Acute kidney injury: (4) Acute dehydration: PLAN: Patient is a 50-year-old gentleman with history of diabetes mellitus type 2 who tested positive for Covid on 09/16/2021 presented to the emergency department with increasing shortness of breath. Patient was also found to be in diabetic ketoacidosis on admission admitted to intensive care unit for further management 1. Diabetic ketoacidosis ?Possibly precipitated by patient COVID-19 infection. Admitted to the intensive care unit patient being managed with aggressive IV fluid resuscitation, correction of electrolyte abnormalities and serial monitoring of electrolytes and subsequent adjustment insulin and fluid regimen -09/25/2021; DKA resolved ?09/26/2021. Patient started on long-acting and scheduled short acting insulin the day prior. Glucose level not optimal at this point subsequent adjustment made in patient's insulin regimen 2. COVID 19 pneumonia ?Patient did receive monoclonal antibody prior to his admission. Plan is to continue with supportive care at this point. Patient not requiring oxygen Decadron and remdesivir therefore not indicated 3. Acute kidney injury ?Do suspect ATN from severe dehydration patient is on IV fluid with subsequent monitoring of electrolytes -09/25/2021 patient kidney function worsening, did continue with IV fluid and consultation placed to nephrology -09/26/2021. Patient on IV fluids. No significant improvement in kidney function. 4. Metabolic acidosis ?Initially attributed to patient DKA however due to suspect his impaired kidney function contributing. Patient started on bicarb drip with consultation placed to nephrology ?09/26/2021; patient bicarb levels continue to worsen started on bicarb drip 5. Acute metabolic encephalopathy ?Multifactorial including impaired kidney function, acidosis as well as COVID-19 pneumonia plan is to treat underlying etiology 6. Hypertension - Blood pressure controlled, and is on losartan held in view of impaired kidney function -09/26/2021. Patient started on amlodipine by nephrology 7. Hypokalemia -corrected per protocol 8. Thrombocytopenia ?Patient platelet count on admission was 232 did drop to 122 as of 09/25/2021. Do suspect patient COVID 19 as etiology will continue with daily monitoring with CBC with differential 8. Allergic rhinitis ?On loratadine as needed 9. Class I obesity with BMI of 30.1 ?Weight loss advised 10. DVT prophylaxis ?Enoxaparin Charges/Coding Visit Charges Inpatient E&M: 06349 Subs Hosp L3
[2021-09-26 07:34] LABS: Differential Indicated SCAN CRITERIA MET
[2021-09-26 08:05] LABS: Anion Gap 12 (5-15); BUN 58 mg/dL (7-18); BUN/Creat Ratio 19.9 RATIO (10-20); Calcium,Total 8.6 mg/dL (8.5-10.1); Chloride 119 mmol/L (98-107); Creatinine, Serum 2.91 mg/dL (0.70-1.30); EST Glomerular Filtration Rate 25 mL/min (>60); Est Glom Filt Rate - Afr Amer 30 mL/min (>60); Estimated Creatinine Clearance 31.04 ml/min; Glucose 302 mg/dL (74-106); Potassium 5.1 mmol/L (3.5-5.1); Sodium Level 138 mmol/L (136-145)
[2021-09-26] MEDS: amLODIPine 5 MG Tablet PO (08:17)
[2021-09-26] MEDS: Enoxaparin 40 MG/0.4 ML Syringe SC (08:17)
[2021-09-26] MEDS: Insulin Lispro 100 UNIT/ML INSULN.PEN 15 UNIT SC ×3 (08:18→18:20)
[2021-09-26] MEDS: 0.9% Normal Saline 1,000 ML 999 ML IV (09:08)
[2021-09-26 09:45] LABS: Anion Gap 9 (5-15); BUN 60 mg/dL (7-18); BUN/Creat Ratio 19.8 RATIO (10-20); Calcium,Total 8.7 mg/dL (8.5-10.1); Chloride 118 mmol/L (98-107); Creatinine, Serum 3.03 mg/dL (0.70-1.30); EST Glomerular Filtration Rate 24 mL/min (>60); Est Glom Filt Rate - Afr Amer 28 mL/min (>60); Estimated Creatinine Clearance 29.81 ml/min; Glucose 287 mg/dL (74-106); Magnesium 2.8 mg/dL (1.6-2.6); Potassium 4.4 mmol/L (3.5-5.1); Sodium Level 140 mmol/L (136-145)
[2021-09-26] MEDS: 0.9% Normal Saline 1,000 ML 500 ML IV (10:29)
[2021-09-26 12:25] LABS: Bedside Glucose 254 mg/dL (70-110)
[2021-09-26 13:33] LABS: Anion Gap 6 (5-15); BUN 58 mg/dL (7-18); BUN/Creat Ratio 20.5 RATIO (10-20); Calcium,Total 8.6 mg/dL (8.5-10.1); Chloride 123 mmol/L (98-107); Creatinine, Serum 2.83 mg/dL (0.70-1.30); EST Glomerular Filtration Rate 25 mL/min (>60); Est Glom Filt Rate - Afr Amer 31 mL/min (>60); Estimated Creatinine Clearance 31.92 ml/min; Glucose 224 mg/dL (74-106); Potassium 4.1 mmol/L (3.5-5.1); Sodium Level 143 mmol/L (136-145)
[2021-09-26] MEDS: hydrALAZINE 25 MG Tablet PO ×2 (16:30→20:34)
[2021-09-26 16:46] LABS: Bedside Glucose 148 mg/dL (70-110)
[2021-09-26 17:22] LABS: Anion Gap 8 (5-15); BUN 55 mg/dL (7-18); BUN/Creat Ratio 20.9 RATIO (10-20); Calcium,Total 8.5 mg/dL (8.5-10.1); Chloride 120 mmol/L (98-107); Creatinine, Serum 2.63 mg/dL (0.70-1.30); EST Glomerular Filtration Rate 28 mL/min (>60); Est Glom Filt Rate - Afr Amer 34 mL/min (>60); Estimated Creatinine Clearance 34.35 ml/min; Glucose 138 mg/dL (74-106); Sodium Level 143 mmol/L (136-145)
[2021-09-26] MEDS: hydrALAZINE 20 MG/ML Vial 10 MG IV (18:23)
[2021-09-26 20:46] LABS: Bedside Glucose 225 mg/dL (70-110)
[2021-09-26 21:17] LABS: Anion Gap 8 (5-15); BUN 55 mg/dL (7-18); BUN/Creat Ratio 21.3 RATIO (10-20); Calcium,Total 8.5 mg/dL (8.5-10.1); Chloride 118 mmol/L (98-107); Creatinine, Serum 2.58 mg/dL (0.70-1.30); EST Glomerular Filtration Rate 28 mL/min (>60); Est Glom Filt Rate - Afr Amer 34 mL/min (>60); Estimated Creatinine Clearance 35.02 ml/min; Glucose 251 mg/dL (74-106); Sodium Level 142 mmol/L (136-145)
[2021-09-27] VITALS (7 sets, daily range): BP systolic 145–152; BP diastolic 53–98; PULSE 87–102; RESP 16–20; TEMP 36.7–36.9; O2SAT 95–98
[2021-09-27 01:05] LABS: Anion Gap 8 (5-15); BUN 52 mg/dL (7-18); BUN/Creat Ratio 22.4 RATIO (10-20); Calcium,Total 8.4 mg/dL (8.5-10.1); Chloride 119 mmol/L (98-107); Creatinine, Serum 2.32 mg/dL (0.70-1.30); EST Glomerular Filtration Rate 32 mL/min (>60); Est Glom Filt Rate - Afr Amer 39 mL/min (>60); Estimated Creatinine Clearance 38.94 ml/min; Glucose 251 mg/dL (74-106); Potassium 3.8 mmol/L (3.5-5.1); Sodium Level 142 mmol/L (136-145)
[2021-09-27] MEDS: Insulin Lispro 100 UNIT/ML INSULN.PEN 15 UNIT SC ×3 (06:36→16:06)
[2021-09-27] MEDS: Insulin Lispro 100 UNIT/ML INSULN.PEN SC ×4 (06:36→21:47)
[2021-09-27] MEDS: hydrALAZINE 25 MG Tablet PO ×3 (06:39→21:42)
[2021-09-27 06:46] LABS: Bedside Glucose 231 mg/dL (70-110)
--- NOTE | 2021-09-27 07:17 | PN.HOSP_ITS ---
Subjective Subjective Per nursing staff patient continues to exhibit bizarre behavior. Apparently peed on the floor during the night.. Remains on bicarb drip. As well as aggressive IV fluid resuscitation Objective Data Objective Data Vital Signs: Vital Signs Temp Pulse Resp BP Pulse Ox 98.1 F 96 18 149/80 H 97 09/27/21 03:50 09/27/21 06:39 09/27/21 03:50 09/27/21 06:39 09/27/21 07:09 Oxygen Delivery Method Room Air Weight: 92.1 kg Body Mass Index (BMI) 29.6 Intake & Output: Intake and Output for Last 24 Hours 09/25/21 09/26/21 09/27/21 23:59 23:59 23:59 Intake Total 3314.12 / 3314.12 6558.33 / 6558.33 2100 / 2100 Output Total 2620 / 2620 3050 / 3050 1400 / 1400 Balance 694.12 / 694.12 3508.33 / 3508.33 700 / 700 Lab / Micro Data Result Diagrams: 09/27/21 07:05 09/27/21 08:40 Labs: Laboratory Results - last 24 hr 09/26/21 06:24: WBC 8.6, RBC 5.34, Hgb 16.0, Hct 46.6, MCV 87.3, MCH 30.0, MCHC 34.3, RDW Std Deviation 42.3, RDW Coeff of Pedrito 13.2, Plt Count 123 L, MPV 10.7, Immature Gran % (Auto) 0.800, Neut % (Auto) 85.8 H, Lymph % (Auto) 6.9 L, [place] % (Auto) 6.4, Eos % (Auto) 0.0, Baso % (Auto) 0.1, Absolute Neuts (auto) 7.4, Absolute Lymphs (auto) 0.59 L, Nucleated RBC % 0 09/26/21 06:24: Sodium 138, Potassium 5.1, Chloride 119 H, Carbon Dioxide 7.0 L* , Anion Gap 12, BUN 58 H, Creatinine 2.91 H, Estim Creat Clear Calc 31.04, Est GFR (MDRD) Af Amer 30 L, Est GFR (MDRD) Non-Af 25 L, BUN/Creatinine Ratio 19.9, Glucose 302 H, Calcium 8.6 09/26/21 08:48: Sodium 140, Potassium 4.4, Chloride 118 H, Carbon Dioxide 13.0 L , Anion Gap 9, BUN 60 H, Creatinine 3.03 H, Estim Creat Clear Calc 29.81, Est GFR (MDRD) Af Amer 28 L, Est GFR (MDRD) Non-Af 24 L, BUN/Creatinine Ratio 19.8, Glucose 287 H, Calcium 8.7, Magnesium 2.8 H 09/26/21 08:48: Acetone Level NEGATIVE 09/26/21 11:50: POC Glucose 254 H 09/26/21 13:10: Sodium 143, Potassium 4.1, Chloride 123 H, Carbon Dioxide 14.0 L , Anion Gap 6, BUN 58 H, Creatinine 2.83 H, Estim Creat Clear Calc 31.92, Est GFR (MDRD) Af Amer 31 L, Est GFR (MDRD) Non-Af 25 L, BUN/Creatinine Ratio 20.5 H , Glucose 224 H, Calcium 8.6 09/26/21 16:27: POC Glucose 148 H 09/26/21 16:55: Sodium 143, Potassium 4.0, Chloride 120 H, Carbon Dioxide 15.0 L , Anion Gap 8, BUN 55 H, Creatinine 2.63 H, Estim Creat Clear Calc 34.35, Est GFR (MDRD) Af Amer 34 L, Est GFR (MDRD) Non-Af 28 L, BUN/Creatinine Ratio 20.9 H , Glucose 138 H, Calcium 8.5 09/26/21 20:05: POC Glucose 225 H 09/26/21 20:42: Sodium 142, Potassium 4.0, Chloride 118 H, Carbon Dioxide 16.0 L , Anion Gap 8, BUN 55 H, Creatinine 2.58 H, Estim Creat Clear Calc 35.02, Est GFR (MDRD) Af Amer 34 L, Est GFR (MDRD) Non-Af 28 L, BUN/Creatinine Ratio 21.3 H , Glucose 251 H, Calcium 8.5 09/27/21 00:38: Sodium 142, Potassium 3.8, Chloride 119 H, Carbon Dioxide 15.0 L , Anion Gap 8, BUN 52 H, Creatinine 2.32 H, Estim Creat Clear Calc 38.94, Est GFR (MDRD) Af Amer 39 L, Est GFR (MDRD) Non-Af 32 L, BUN/Creatinine Ratio 22.4 H , Glucose 251 H, Calcium 8.4 L 09/27/21 06:34: POC Glucose 231 H Physical Exam Narrative GENERAL: Appears ill looking HEENT: Atraumatic; dry oral mucosa EYES; Anicteric, Normal Conjunctiva NECK; supple, normal thyroid, RESPIRATORY: Diminished to auscultation CARDIOVASCULAR: Regular S1 S2, GI: soft, normoactive bowel sounds, : No Renal angle tenderness; EXTREMITIES: No edema, no clubbing, MUSCULOSKELETAL: no muscle waisting NEURO: Awake; no lateralizing signs. SKIN: No Rash PSYCH; Flat affect Assessment & Plan Assessment/Plan (1) DKA (diabetic ketoacidoses): QUALIFIERS: Diabetes mellitus complication detail: without coma Diabetes mellitus type: type 2 Qualified Code(s): E11.10 - Type 2 diabetes shani itus with ketoacidosis without coma (2) COVID-19: (3) Acute kidney injury: (4) Acute dehydration: PLAN: Patient is a 50-year-old gentleman with history of diabetes mellitus type 2 who tested positive for Covid on 09/16/2021 presented to the emergency department with increasing shortness of breath. Patient was also found to be in diabetic ketoacidosis on admission admitted to intensive care unit for further management 1. Diabetic ketoacidosis ?Possibly precipitated by patient COVID-19 infection. Admitted to the intensive care unit patient being managed with aggressive IV fluid resuscitation, correction of electrolyte abnormalities and serial monitoring of electrolytes and subsequent adjustment insulin and fluid regimen -09/25/2021; DKA resolved ?09/26/2021. Patient started on long-acting and scheduled short acting insulin the day prior. Glucose level not optimal at this point subsequent adjustment made in patient's insulin regimen ?09/27/2021 subsequent adjustment made in patient insulin regimen 2. COVID 19 pneumonia ?Patient did receive monoclonal antibody prior to his admission. Plan is to continue with supportive care at this point. Patient not requiring oxygen Decadron and remdesivir therefore not indicated -09/27/2021 still remains without supplemental oxygen 3. Acute kidney injury ?Do suspect ATN from severe dehydration patient is on IV fluid with subsequent monitoring of electrolytes -09/25/2021 patient kidney function worsening, did continue with IV fluid and consultation placed to nephrology -09/26/2021. Patient on IV fluids. No significant improvement in kidney function. ?09/27/2021 creatinine down to 2.13 4. Metabolic acidosis ?Initially attributed to patient DKA however due to suspect his impaired kidney function contributing. Patient started on bicarb drip with consultation placed to nephrology ?09/26/2021; patient bicarb levels continue to worsen started on bicarb drip ?09/27/2021 patient remains on bicarb drip bicarb up to 18 5. Acute metabolic encephalopathy ?Multifactorial including impaired kidney function, acidosis as well as COVID-19 pneumonia plan is to treat underlying etiology 6. Hypertension - Blood pressure controlled, and is on losartan held in view of impaired kidney function -09/26/2021. Patient started on amlodipine by nephrology 7. Hypokalemia -corrected per protocol 8. Thrombocytopenia ?Patient platelet count on admission was 232 did drop to 122 as of 09/25/2021. Do suspect patient COVID 19 as etiology will continue with daily monitoring with CBC with differential ?09/27/2021 platelet count 157 8. Allergic rhinitis ?On loratadine as needed 9. Class I obesity with BMI of 30.1 ?Weight loss advised 10. DVT prophylaxis ?Enoxaparin Charges/Coding Visit Charges Inpatient E&M: 58767 Subs Hosp L3
[2021-09-27 07:19] LABS: Absolute Lymphocyte Count 0.92 X10^3/uL (0.83-4.51); Absolute Neutrophil Count 7.1 X10^3/uL (2.0-7.7); Basophil# 0.02 X10^3/uL; Basophil% 0.2 % (0-1); Eosinophil# 0.04 X10^3/uL; Eosinophils% 0.5 % (0-5); Hematocrit 40.7 % (40-54); Hemoglobin 14.3 g/dL (13.0-16.5); Lymphocyte # 0.92 X10^3/ul (0.83-4.51); Lymphocyte % 10.6 % (19-41); Mean Corp Hgb Conc 35.1 g/dL (32-36); Mean Corpuscular Hgb 29.7 pg (27.0-32.0); Mean Corpuscular Volume 84.6 fL (80-94); Monocyte# 0.52 X10^3/uL; NRBC Flagged by Analyzer 0 % (0-5); Neutrophil # 7.13 X10^3/uL (2.7-7.7); Neutrophil % 81.9 % (47-70); Platelet Count 157 K/mm3 (150-450); RBC Distribution Width CV 12.8 % (11.6-14.6); RBC Distribution Width SD 39.6 fl (35.1-43.9); Red Blood Count 4.81 M/mm3 (4.6-6.2); White Blood Count 8.7 K/mm3 (4.4-11.0)
[2021-09-27 08:07] LABS: Anion Gap 7 (5-15); BUN 46 mg/dL (7-18); BUN/Creat Ratio 20.9 RATIO (10-20); Calcium,Total 8.5 mg/dL (8.5-10.1); Chloride 117 mmol/L (98-107); EST Glomerular Filtration Rate 34 mL/min (>60); Est Glom Filt Rate - Afr Amer 41 mL/min (>60); Estimated Creatinine Clearance 41.06 ml/min; Glucose 234 mg/dL (74-106); Potassium 3.8 mmol/L (3.5-5.1); Sodium Level 141 mmol/L (136-145)
[2021-09-27 09:12] LABS: Anion Gap 7 (5-15); BUN 45 mg/dL (7-18); BUN/Creat Ratio 21.1 RATIO (10-20); Calcium,Total 8.6 mg/dL (8.5-10.1); Chloride 117 mmol/L (98-107); Creatinine, Serum 2.13 mg/dL (0.70-1.30); EST Glomerular Filtration Rate 35 mL/min (>60); Est Glom Filt Rate - Afr Amer 43 mL/min (>60); Estimated Creatinine Clearance 42.41 ml/min; Glucose 215 mg/dL (74-106); Potassium 3.9 mmol/L (3.5-5.1); Sodium Level 142 mmol/L (136-145)
[2021-09-27] MEDS: Enoxaparin 40 MG/0.4 ML Syringe SC (09:57)
[2021-09-27] MEDS: amLODIPine 5 MG Tablet PO (09:57)
--- NOTE | 2021-09-27 09:59 | PN.RENAL_ITS ---
Subjective Subjective Following for MONE. The patient has moved out of the ICU yesterday. He is on room air currently. The patient denies chest pain or shortness of breath. He denies diarrhea. Appetite is picking up. Objective Data Objective Data Vital Signs: Vital Signs Temp Pulse Resp BP Pulse Ox 98.1 F 96 18 149/80 H 97 09/27/21 03:50 09/27/21 06:39 09/27/21 03:50 09/27/21 06:39 09/27/21 07:09 Oxygen Delivery Method Room Air Weight: 92.1 kg Body Mass Index (BMI) 29.6 Intake & Output: Intake and Output for Last 24 Hours 09/25/21 09/26/21 09/27/21 23:59 23:59 23:59 Intake Total 3314.12 / 3314.12 6558.33 / 6558.33 2100 / 2100 Output Total 2620 / 2620 3050 / 3050 1400 / 1400 Balance 694.12 / 694.12 3508.33 / 3508.33 700 / 700 Lab / Micro Data Result Diagrams: 09/27/21 07:05 09/27/21 08:40 Labs: Laboratory Results - last 24 hr 09/26/21 11:50: POC Glucose 254 H 09/26/21 13:10: Sodium 143, Potassium 4.1, Chloride 123 H, Carbon Dioxide 14.0 L , Anion Gap 6, BUN 58 H, Creatinine 2.83 H, Estim Creat Clear Calc 31.92, Est GFR (MDRD) Af Amer 31 L, Est GFR (MDRD) Non-Af 25 L, BUN/Creatinine Ratio 20.5 H , Glucose 224 H, Calcium 8.6 09/26/21 16:27: POC Glucose 148 H 09/26/21 16:55: Sodium 143, Potassium 4.0, Chloride 120 H, Carbon Dioxide 15.0 L , Anion Gap 8, BUN 55 H, Creatinine 2.63 H, Estim Creat Clear Calc 34.35, Est GFR (MDRD) Af Amer 34 L, Est GFR (MDRD) Non-Af 28 L, BUN/Creatinine Ratio 20.9 H , Glucose 138 H, Calcium 8.5 09/26/21 20:05: POC Glucose 225 H 09/26/21 20:42: Sodium 142, Potassium 4.0, Chloride 118 H, Carbon Dioxide 16.0 L , Anion Gap 8, BUN 55 H, Creatinine 2.58 H, Estim Creat Clear Calc 35.02, Est GFR (MDRD) Af Amer 34 L, Est GFR (MDRD) Non-Af 28 L, BUN/Creatinine Ratio 21.3 H , Glucose 251 H, Calcium 8.5 09/27/21 00:38: Sodium 142, Potassium 3.8, Chloride 119 H, Carbon Dioxide 15.0 L , Anion Gap 8, BUN 52 H, Creatinine 2.32 H, Estim Creat Clear Calc 38.94, Est GFR (MDRD) Af Amer 39 L, Est GFR (MDRD) Non-Af 32 L, BUN/Creatinine Ratio 22.4 H , Glucose 251 H, Calcium 8.4 L 09/27/21 06:34: POC Glucose 231 H 09/27/21 07:05: WBC 8.7, RBC 4.81, Hgb 14.3, Hct 40.7, MCV 84.6, MCH 29.7, MCHC 35.1, RDW Std Deviation 39.6, RDW Coeff of Pedrito 12.8, Plt Count 157, MPV 10.0, Im mature Gran % (Auto) 0.800, Neut % (Auto) 81.9 H, Lymph % (Auto) 10.6 L, [place] % (Auto) 6.0, Eos % (Auto) 0.5, Baso % (Auto) 0.2, Absolute Neuts (auto) 7.1, Absolute Lymphs (auto) 0.92, Nucleated RBC % 0 09/27/21 07:05: Sodium 141, Potassium 3.8, Chloride 117 H, Carbon Dioxide 17.0 L , Anion Gap 7, BUN 46 H, Creatinine 2.20 H, Estim Creat Clear Calc 41.06, Est GFR (MDRD) Af Amer 41 L, Est GFR (MDRD) Non-Af 34 L, BUN/Creatinine Ratio 20.9 H , Glucose 234 H, Calcium 8.5 09/27/21 08:40: Sodium 142, Potassium 3.9, Chloride 117 H, Carbon Dioxide 18.0 L , Anion Gap 7, BUN 45 H, Creatinine 2.13 H, Estim Creat Clear Calc 42.41, Est GFR (MDRD) Af Amer 43 L, Est GFR (MDRD) Non-Af 35 L, BUN/Creatinine Ratio 21.1 H , Glucose 215 H, Calcium 8.6 Physical Exam Narrative General: Alert, oriented x3. No apparent distress. HEENT: Normocephalic, atraumatic. Mucous membrane moist. Neck: Supple, no JVD. Heart: Normal S1, S2. No rubs, murmurs or gallops. Lungs: Clear to auscultation bilaterally. Abdomen: Normal bowel sound, soft, nontender, no guarding or rebound. Extremity: No clubbing, cyanosis, or edema. Full passive range of motion. Neurologic: No focal neurologic deficits. Psychiatric: Affect is flat. Skin: Skin is warm and dry without rash. Assessment & Plan Assessment/Plan (1) Acute kidney injury: PLAN: Baseline serum creatinine is 0.8 mg/dL. The patient has no prior history of CKD. MONE was initially due to decreased effective blood volume in the setting of CO VID-19 infection and DKA. MONE is now likely due to ischemic ATN. Fractional secretion of sodium from 09/25/2021 was greater than 1%. Thus far, serum creatinine has peaked at 3.03 mg/dL on 09/26/2021. Serum creatinine has improved in the last 24 hours and is now 2.13 mg/dL today. The patient is on hypotonic bicarbonate drip which will be continued. I encourage oral solute and fluid intake. We continue to hold losartan for now because of MONE. We will watch blood pressure while the patient is off of losartan. There is no urgent need for kidney replacement therapy. Current medications are reviewed. There is no need to change dosages of medications at this point. (2) Metabolic acidosis: PLAN: The patient initially had high anion gap metabolic acidosis presumably due to DKA. However, anion gap has closed, but acidosis has persisted. The patient denies diarrhea or loose bowel movement. Acidosis is likely due to MONE at this point. The patient is currently getting IV hypotonic sodium bicarbonate drip (100 mEq sodium bicarbonate per liter of D5W). Continue current bicarbonate drip. We will check serum bicarbonate level again tomorrow. Watch potassium and calcium levels since the patient is receiving bicarbonate drip. (3) Essential hypertension: PLAN: Continue to hold losartan for now because of MONE. Amlodipine was started on 09/25/2021 instead. Aim for blood pressure of below 150/90. Continue to monitor blood pressure. (4) Hypokalemia: PLAN: Potassium level is 3.8 today. Magnesium was 2.8 mg/dL on 09/26/2021. Continue to monitor potassium level since the patient is on bicarbonate drip. Replace potassium deficit as per primary service. Recheck potassium level tomorrow. (5) Type 2 diabetes mellitus: PLAN: Glycemic control as per hospital medicine service. (6) COVID-19: PLAN: Appears to be improving. Management as per primary service.
[2021-09-27 11:36] LABS: Bedside Glucose 296 mg/dL (70-110)
[2021-09-27] MEDS: 0.9% Saline Lock 10 ML Syringe IV ×2 (15:39→18:10)
[2021-09-27 16:20] LABS: Bedside Glucose 171 mg/dL (70-110)
--- NOTE | 2021-09-27 18:14 | NURSING ---
went in to see how pt did with supper tray and pt holding up lt arm saying, you know that girl put these in new but my hand and arm really hurt pt with mod amt tight edema from iv sites both infiltrating. pt c/o 'very tender to lt ac area from lab draws iv started to rt ac but only able to advance assisted though good blood return and flushes easily. iv taped down well and instructed pt that needs to call at FIRST sign of pain or swelling. warm moist compresses to lt hand and arm
[2021-09-27 22:00] LABS: Bedside Glucose 366 mg/dL (70-110)
[2021-09-28] VITALS (8 sets, daily range): BP systolic 141–157; BP diastolic 74–89; PULSE 73–94; RESP 18; TEMP 36.4–36.8; O2SAT 95–98
[2021-09-28] MEDS: Temazepam 15 MG Capsule PO ×2 (02:50→23:52)
[2021-09-28] MEDS: Insulin Lispro 100 UNIT/ML INSULN.PEN SC ×4 (06:25→23:48)
[2021-09-28] MEDS: hydrALAZINE 25 MG Tablet PO ×3 (06:25→23:41)
[2021-09-28 06:35] LABS: Bedside Glucose 174 mg/dL (70-110)
[2021-09-28 07:15] LABS: Absolute Lymphocyte Count 1.16 X10^3/uL (0.83-4.51); Basophil# 0.02 X10^3/uL; Basophil% 0.3 % (0-1); Eosinophil# 0.11 X10^3/uL; Eosinophils% 1.6 % (0-5); Hematocrit 36.5 % (40-54); Hemoglobin 12.8 g/dL (13.0-16.5); Lymphocyte # 1.16 X10^3/ul (0.83-4.51); Mean Corp Hgb Conc 35.1 g/dL (32-36); Mean Corpuscular Hgb 29.3 pg (27.0-32.0); Mean Corpuscular Volume 83.5 fL (80-94); Mean Platelet Vol. 10.2 fl (6.2-12.0); Monocyte# 0.51 X10^3/uL; Monocyte% 7.5 % (0-10); NRBC Flagged by Analyzer 0 % (0-5); Neutrophil # 4.97 X10^3/uL (2.7-7.7); Neutrophil % 72.7 % (47-70); Platelet Count 179 K/mm3 (150-450); RBC Distribution Width CV 12.4 % (11.6-14.6); RBC Distribution Width SD 38.1 fl (35.1-43.9); Red Blood Count 4.37 M/mm3 (4.6-6.2); White Blood Count 6.8 K/mm3 (4.4-11.0)
[2021-09-28 07:37] LABS: Anion Gap 8 (5-15); BUN 27 mg/dL (7-18); BUN/Creat Ratio 15.9 RATIO (10-20); Chloride 114 mmol/L (98-107); EST Glomerular Filtration Rate 46 mL/min (>60); Est Glom Filt Rate - Afr Amer 55 mL/min (>60); Estimated Creatinine Clearance 53.14 ml/min; Glucose 175 mg/dL (74-106); Potassium 3.7 mmol/L (3.5-5.1); Sodium Level 142 mmol/L (136-145)
[2021-09-28] MEDS: Insulin Lispro 100 UNIT/ML INSULN.PEN 15 UNIT SC ×3 (08:33→17:20)
[2021-09-28] MEDS: amLODIPine 5 MG Tablet PO (10:57)
[2021-09-28] MEDS: Enoxaparin 40 MG/0.4 ML Syringe SC (11:05)
[2021-09-28 12:50] LABS: Bedside Glucose 263 mg/dL (70-110)
--- NOTE | 2021-09-28 13:21 | PCM.PN.REN ---
Subjective Subjective Reviewed chart. Creatinine trending down. Objective Data Objective Data Vital Signs: Vital Signs Temp Pulse Resp BP Pulse Ox 98 F 88 18 144/74 H 96 09/28/21 08:40 09/28/21 08:40 09/28/21 08:40 09/28/21 08:40 09/28/21 08:40 Oxygen Delivery Method Room Air Weight: 94.5 kg Body Mass Index (BMI) 29.6 Intake & Output: Intake and Output for Last 24 Hours 09/26/21 09/27/21 09/28/21 23:59 23:59 23:59 Intake Total 6558.33 / 6558.33 7718.34 / 7718.34 2840 / 2840 Output Total 3050 / 3050 3450 / 3450 1325 / 1325 Balance 3508.33 / 3508.33 4268.34 / 4268.34 1515 / 1515 Lab / Micro Data Result Diagrams: 09/28/21 06:51 09/28/21 06:51 Labs: Laboratory Results - last 24 hr 09/27/21 16:06: POC Glucose 171 H 09/27/21 21:45: POC Glucose 366 H 09/28/21 06:24: POC Glucose 174 H 09/28/21 06:51: WBC 6.8, RBC 4.37 L, Hgb 12.8 L, Hct 36.5 L, MCV 83.5, MCH 29.3, MCHC 35.1, RDW Std Deviation 38.1, RDW Coeff of Pedrito 12.4, Plt Count 179, MPV 10.2, Immature Gran % (Auto) 0.900, Neut % (Auto) 72.7 H, Lymph % (Auto) 17.0 L, [place] % (Auto) 7.5, Eos % (Auto) 1.6, Baso % (Auto) 0.3, Absolute Neuts (auto) 5.0, Absolute Lymphs (auto) 1.16, Nucleated RBC % 0 09/28/21 06:51: Sodium 142, Potassium 3.7, Chloride 114 H, Carbon Dioxide 20.0 L, Anion Gap 8, BUN 27 H, Creatinine 1.70 H, Estim Creat Clear Calc 53.14, Est GFR (MDRD) Af Amer 55 L, Est GFR (MDRD) Non-Af 46 L, BUN/Creatinine Ratio 15.9, Glucose 175 H, Calcium 8.0 L 09/28/21 12:40: POC Glucose 263 H Physical Exam Narrative Exam minimize due to Covid Assessment & Plan Assessment/Plan (1) Acute kidney injury: PLAN: Baseline serum creatinine is 0.8 mg/dL. The patient has no prior history of CKD. MONE was initially due to decreased effective blood volume in the setting of COVID-19 infection and DKA. MOEN is now likely due to ischemic ATN. Fractional secretion of sodium from 09/25/2021 was greater than 1%. Creatinine trending down (2) Metabolic acidosis: PLAN: The patient initially had high anion gap metabolic acidosis presumably due to DKA. However, anion gap has closed, but acidosis has persisted. The patient denies diarrhea or loose bowel movement. Acidosis is likely due to MONE at this point. Bicarbonate is better. Off all IV fluids (3) Essential hypertension: PLAN: Continue to hold losartan for now because of MONE. Amlodipine was started on 09/25/2021 instead. (4) Hypokalemia: PLAN: better (5) Type 2 diabetes mellitus: PLAN: Glycemic control as per hospital medicine service. (6) COVID-19: PLAN: Appears to be improving. Management as per primary service.
[2021-09-28 17:05] LABS: Bedside Glucose 187 mg/dL (70-110)
--- NOTE | 2021-09-28 17:21 | PCM.PN.HOSP ---
Subjective Subjective Doing well feels little bit better. Still has some acidosis and blood sugar is a little bit elevated again today kidney functions much improved Objective Data Objective Data Vital Signs: Vital Signs Temp Pulse Resp BP Pulse Ox 98.3 F 94 18 141/79 H 96 09/28/21 14:20 09/28/21 14:21 09/28/21 14:20 09/28/21 14:21 09/28/21 14:20 Oxygen Delivery Method Room Air Weight: 208 lb 5.389 oz Body Mass Index (BMI) 29.6 Intake & Output: Intake and Output for Last 24 Hours 09/27/21 09/28/21 09/29/21 03:59 03:59 03:59 Intake Total 5558.33 / 5558.33 9558.34 / 9558.34 2880 / 2880 Output Total 3750 / 3750 4075 / 4075 1200 / 1200 Balance 1808.33 / 1808.33 5483.34 / 5483.34 1680 / 1680 Lab / Micro Data Result Diagrams: 09/29/21 05:03 09/29/21 05:03 Labs: Laboratory Results - last 24 hr 09/27/21 21:45: POC Glucose 366 H 09/28/21 06:24: POC Glucose 174 H 09/28/21 06:51: WBC 6.8, RBC 4.37 L, Hgb 12.8 L, Hct 36.5 L, MCV 83.5, MCH 29.3, MCHC 35.1, RDW Std Deviation 38.1, RDW Coeff of Pedrito 12.4, Plt Count 179, MPV 10.2, Immature Gran % (Auto) 0.900, Neut % (Auto) 72.7 H, Lymph % (Auto) 17.0 L, [place] % (Auto) 7.5, Eos % (Auto) 1.6, Baso % (Auto) 0.3, Absolute Neuts (auto) 5.0, Absolute Lymphs (auto) 1.16, Nucleated RBC % 0 09/28/21 06:51: Sodium 142, Potassium 3.7, Chloride 114 H, Carbon Dioxide 20.0 L, Anion Gap 8, BUN 27 H, Creatinine 1.70 H, Estim Creat Clear Calc 53.14, Est GFR (MDRD) Af Amer 55 L, Est GFR (MDRD) Non-Af 46 L, BUN/Creatinine Ratio 15.9, Glucose 175 H, Calcium 8.0 L 09/28/21 12:40: POC Glucose 263 H 09/28/21 16:53: POC Glucose 187 H Physical Exam Const alert, oriented x3 and no apparent distress General Appearance: cooperative HEENT normocephalic and moist oral mucous membranes Eyes PERRL, EOMs intact bilaterally and conjunctivae normal Neck supple and no JVD Resp normal respiratory effort, no retractions and no use of accessory muscles Auscultation: Negative for crackles, rales, rhonchi or wheezes Cardio regular rate, regular rhythm, S1 normal heart sound, S2 normal heart sound and no murmurs GI soft to palpation, non-tender and non-distended; Negative for hepatosplenomegaly Extremity no clubbing, cyanosis or edema Skin no rashes or lesions noted Neuro no focal motor deficits and no sensory deficits noted Psych affect normal Appearance: appropriate Assessment & Plan Assessment/Plan (1) DKA (diabetic ketoacidoses): QUALIFIERS: Diabetes mellitus type: type 2 Diabetes mellitus complication detail: without coma Qualified Code(s): E11.10 - Type 2 diabetes mellitus with ketoacidosis without coma (2) COVID-19: (3) Acute kidney injury: (4) Acute dehydration: PLAN: 1. Diabetic ketoacidosis ?Possibly precipitated by patient COVID-19 infection. Admitted to the intensive care unit patient being managed with aggressive IV fluid resuscitation, correction of electrolyte abnormalities and serial monitoring of electrolytes and subsequent adjustment insulin and fluid regimen -09/25/2021; DKA resolved ?09/26/2021. Patient started on long-acting and scheduled short acting insulin the day prior. Glucose level not optimal at this point subsequent adjustment made in patient's insulin regimen ?09/27/2021 subsequent adjustment made in patient insulin regimen ?09/28/2021: Will adjust his long-acting insulin today and if stable can potentially discharge in the morning. 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 COVID 19 pneumonia ?Patient did receive monoclonal antibody prior to his admission. Plan is to continue with supportive care at this point. Patient not requiring oxygen Decadron and remdesivir therefore not indicated -09/27/2021 still remains without supplemental oxygen ?09/28/2021: Not requiring any Decadron 3. Acute kidney injury/CKD 3 a ?Do suspect ATN from severe dehydration patient is on IV fluid with subsequent monitoring of electrolytes -09/25/2021 patient kidney function worsening, did continue with IV fluid and consultation placed to nephrology -09/26/2021. Patient on IV fluids. No significant improvement in kidney function. ?09/27/2021 creatinine down to 2.13 ?09/28/2021: Creatinine is down to 1.7 today it does look like he likely has a chronic kidney disease stage IIIa 4. Metabolic acidosis ?Initially attributed to patient DKA however due to suspect his impaired kidney function contributing. Patient started on bicarb drip with consultation placed to nephrology ?09/26/2021; patient bicarb levels continue to worsen started on bicarb drip ?09/27/2021 patient remains on bicarb drip bicarb up to 18 ?09/28/2021: Resolving was on the bicarb drip as well as IV fluids 5. Acute metabolic encephalopathy ?Multifactorial including impaired kidney function, acidosis as well as COVID-19 pneumonia plan is to treat underlying etiology ?09/28/2021: Resolved 6. Hypertension - Blood pressure controlled, and is on losartan held in view of impaired kidney function -09/26/2021. Patient started on amlodipine by nephrology 7. Hypokalemia -corrected per protocol 8. Thrombocytopenia ?Patient platelet count on admission was 232 did drop to 122 as of 09/25/2021. Do suspect patient COVID 19 as etiology will continue with daily monitoring with CBC with differential ?09/27/2021 platelet count 157 8. Allergic rhinitis ?On loratadine as needed 9. Class I obesity with BMI of 30.1 ?Weight loss advised DVT: Lovenox Charges/Coding Visit Charges Inpatient E&M: 26442 Subs Hosp L2
[2021-09-28 21:55] LABS: Bedside Glucose 231 mg/dL (70-110)
[2021-09-29] VITALS (7 sets, daily range): BP systolic 143–148; BP diastolic 78–82; PULSE 72–79; RESP 18; TEMP 36.7; O2SAT 96–99
[2021-09-29 05:16] LABS: Bedside Glucose 146 mg/dL (70-110)
[2021-09-29] MEDS: hydrALAZINE 25 MG Tablet PO ×2 (05:16→11:46)
[2021-09-29 06:15] LABS: Absolute Lymphocyte Count 1.52 X10^3/uL (0.83-4.51); Absolute Neutrophil Count 5.1 X10^3/uL (2.0-7.7); Basophil# 0.02 X10^3/uL; Basophil% 0.3 % (0-1); Eosinophils% 2.6 % (0-5); Hematocrit 35.7 % (40-54); Hemoglobin 12.6 g/dL (13.0-16.5); Lymphocyte # 1.52 X10^3/ul (0.83-4.51); Lymphocyte % 19.6 % (19-41); Mean Corp Hgb Conc 35.3 g/dL (32-36); Mean Corpuscular Hgb 29.9 pg (27.0-32.0); Mean Corpuscular Volume 84.6 fL (80-94); Monocyte# 0.76 X10^3/uL; Monocyte% 9.8 % (0-10); NRBC Flagged by Analyzer 0 % (0-5); Neutrophil # 5.14 X10^3/uL (2.7-7.7); Neutrophil % 66.2 % (47-70); Platelet Count 213 K/mm3 (150-450); RBC Distribution Width CV 12.5 % (11.6-14.6); RBC Distribution Width SD 38.5 fl (35.1-43.9); Red Blood Count 4.22 M/mm3 (4.6-6.2); White Blood Count 7.8 K/mm3 (4.4-11.0)
[2021-09-29 06:48] LABS: Anion Gap 8 (5-15); BUN 7 mg/dL (7-18); BUN/Creat Ratio 4.2 RATIO (10-20); Chloride 113 mmol/L (98-107); Creatinine, Serum 1.68 mg/dL (0.70-1.30); EST Glomerular Filtration Rate 46 mL/min (>60); Est Glom Filt Rate - Afr Amer 56 mL/min (>60); Estimated Creatinine Clearance 53.77 ml/min; Glucose 145 mg/dL (74-106); Potassium 3.7 mmol/L (3.5-5.1); Sodium Level 144 mmol/L (136-145)
[2021-09-29] MEDS: Insulin Lispro 100 UNIT/ML INSULN.PEN 15 UNIT SC ×2 (09:12→11:43)
[2021-09-29] MEDS: Enoxaparin 40 MG/0.4 ML Syringe SC (09:15)
[2021-09-29] MEDS: amLODIPine 5 MG Tablet PO (09:15)
--- NOTE | 2021-09-29 09:56 | DCINST_ITS ---
Discharge Instructions Diet Discharge Diet: Carb Control Diet Activity Discharge Activity: Return to Normal Activity Dressing / Incision Call your doctor if you observe: Fever of 101 or Higher, Shortness of breath, Dizziness, Fainting spells, Swelling in the ankles, Chest pain and Increased palpitations (irregular heartbeat) Follow Up Care Test Results: Test results from this visit will be discussed in further detail at your follow-up appointment, if applicable. Discharge Plan Admission Admit Date/Time: 09/23/21 14:20 Attending Provider: Jameson Cannon Primary Care Provider: Rebecca Britton NP Consulting Providers: Yue Tamez Discharge Orders/Prescriptions Prescriptions: New hydralazine 25 mg Tablet 25 mg PO TID Qty: 90 RF: 0 insulin glargine 100 unit/mL (3 mL) insulin pen 45 unit subcut BID Qty: 15 RF: 0 insulin lispro [Humalog KwikPen Insulin] 100 unit/mL Insulin Pen 15 unit subcut TIDAC Qty: 15 RF: 0 amlodipine 10 mg tablet 10 mg PO DAILY Qty: 30 RF: 0 Continued loratadine 10 MG tablet 10 mg PO DAILY PRN (Reason: allergies) RF: 0 glipizide 10 mg tablet 10 mg PO DAILY RF: 0 Discontinued losartan 100 MG tablet 100 mg PO DAILY RF: 0 Referrals / Follow Up: Yue Tamez MD [STAFF PHYSICIAN] - Within 1 Month Freddie Dean MD [STAFF PHYSICIAN] - Within 1 Month Rebecca Britton NP, [facility] [Primary Care Provider] - Within 1 Week Disposition Disposition (needs filled in before D/C Order can be placed): Home, Self Care
--- NOTE | 2021-09-29 10:10 | PCM.DC.SUM ---
Providers Date of Admission: 09/23/21 Primary Care Physician: ERINN Escamilla Consultations 09/25/21 09:53 Consult: Nephrology Routine Consulting Provider: Yue Tamez Reason for Consult: mone EMERGENT Consult: No MD Notified: Yes Date Notified: 09/25/21 Time Notified: 10:59 Method of Notification: Answering Service Reason For Visit: DKA, COVID 19 Diagnosis Discharge Diagnosis (1) DKA (diabetic ketoacidoses): Status: Acute Code(s): E11.10 - Type 2 diabetes mellitus with ketoacidosis without coma Qualifiers: Diabetes mellitus type: type 2 Diabetes mellitus complication detail: without coma Qualified Code(s): E11.10 - Type 2 diabetes mellitus with ketoacidosis without coma (2) COVID-19: Status: Acute Code(s): U07.1 - COVID-19 (3) Acute kidney injury: Status: Acute Code(s): N17.9 - Acute kidney failure, unspecified (4) Acute dehydration: Status: Acute Code(s): E86.0 - Dehydration Medications at Discharge Home Medications glipizide 10 mg PO DAILY 09/22/21 loratadine 10 mg PO DAILY PRN 09/22/21 amlodipine 10 mg PO DAILY #30 tab 09/29/21 hydralazine 25 mg PO TID #90 tab 09/29/21 insulin glargine 45 unit SUBCUT BID #15 ml 09/29/21 insulin lispro [Humalog KwikPen Insulin] 15 unit SUBCUT TIDAC #15 ml 09/29/21 Hospital Course Operations None Procedures None Summary of Care Provided Minutes Spent on Discharge: 40 Hospital Course: Per HPI: SAIMA AMAYA, is a 50 M who presents presents with a general illness. Patient has been sick for the he did have a test positive for COVID-19. He did receive the Covid monoclonal antibody. He is unvaccinated. Patient presents to the emergency room and found in be DKA. Patient received IV fluids. Patient has been since started on insulin drip. Patient is a type 2 jzj-holmyjq-stvgtebmc diabetic. Patient states that he was too unwell to take any of his medications. Hospital Course: 1. Diabetic ketoacidosis ?Possibly precipitated by patient COVID-19 infection. Admitted to the intensive care unit patient being managed with aggressive IV fluid resuscitation, correction of electrolyte abnormalities and serial monitoring of electrolytes and subsequent adjustment insulin and fluid regimen -09/25/2021; DKA resolved ?09/26/2021. Patient started on long-acting and scheduled short acting insulin the day prior. Glucose level not optimal at this point subsequent adjustment made in patient's insulin regimen ?09/27/2021 subsequent adjustment made in patient insulin regimen ?09/28/2021: Will adjust his long-acting insulin today and if stable can potentially discharge in the morning. 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 We will also resume his glipizide and have him follow-up with endocrinology as an outpatient. I did discuss with him that he likely cannot drive his truck while needing so much insulin and that he needs to follow-up with his PCP as an outpatient for follow-up and evaluation of his diabetes. I discussed with him the plan for possible discharge today and he expressed understanding of the risk benefits going home and would like to go home today. 2. COVID 19 pneumonia ?Patient did receive monoclonal antibody prior to his admission. Plan is to continue with supportive care at this point. Patient not requiring oxygen Decadron and remdesivir therefore not indicated -09/27/2021 still remains without supplemental oxygen ?09/28/2021: Not requiring any Decadron 3. Acute kidney injury/CKD 3 a ?Do suspect ATN from severe dehydration patient is on IV fluid with subsequent monitoring of electrolytes -09/25/2021 patient kidney function worsening, did continue with IV fluid and consultation placed to nephrology -09/26/2021. Patient on IV fluids. No significant improvement in kidney function. ?09/27/2021 creatinine down to 2.13 ?09/28/2021: Creatinine is down to 1.7 today it does look like he likely has a chronic kidney disease stage IIIa ?09/28/2021: Creatinine today is down to 1.68, it appears that his MOEN has resolved and that he does have CKD 3a. This is likely brought on by his diabetes therefore I do asked that he follow-up with nephrology as an outpatient for monitoring. 4. Metabolic acidosis ?Initially attributed to patient DKA however due to suspect his impaired kidney function contributing. Patient started on bicarb drip with consultation placed to nephrology ?09/26/2021; patient bicarb levels continue to worsen started on bicarb drip ?09/27/2021 patient remains on bicarb drip bicarb up to 18 ?09/28/2021: Resolving was on the bicarb drip as well as IV fluids 5. Acute metabolic encephalopathy ?Multifactorial including impaired kidney function, acidosis as well as COVID-19 pneumonia plan is to treat underlying etiology ?09/28/2021: Resolved 6. Hypertension - Blood pressure controlled, and is on losartan held in view of impaired kidney function -09/26/2021. Patient started on amlodipine by nephrology ?09/29/2021: We will increase his Norvasc to 10 mg, and continue with his hydralazine 3 times daily. He will need to follow-up with his PCP as an outpatient for monitoring and medication adjustments 7. Hypokalemia -corrected per protocol 8. Thrombocytopenia ?Patient platelet count on admission was 232 did drop to 122 as of 09/25/2021. Do suspect patient COVID 19 as etiology will continue with daily monitoring with CBC with differential ?09/27/2021 platelet count 157 ?09/29/2021: Resolved 8. Allergic rhinitis ?On loratadine as needed 9. Class I obesity with BMI of 30.1 ?Weight loss advised Physical Exam Const alert, oriented x3 and no apparent distress General Appearance: cooperative HEENT normocephalic and moist oral mucous membranes Eyes PERRL, EOMs intact bilaterally and conjunctivae normal Neck supple and no JVD Resp normal respiratory effort, no retractions and no use of accessory muscles Auscultation: Negative for crackles, rales, rhonchi or wheezes Cardio regular rate, regular rhythm, S1 normal heart sound, S2 normal heart sound and no murmurs GI soft to palpation, non-tender and non-distended; Negative for hepatosplenomegaly Extremity no clubbing, cyanosis or edema Skin no rashes or lesions noted Neuro no focal motor deficits and no sensory deficits noted Psych affect normal Appearance: appropriate Weight / BMI Weight Weight: 211 lb 13.828 oz Body Mass Index (BMI) 29.6 ABG / Lab / Microbiology Data Result Diagrams: 09/29/21 05:03 09/29/21 05:03 Laboratory: Laboratory Results - last 24 hr 09/28/21 12:40: POC Glucose 263 H 09/28/21 16:53: POC Glucose 187 H 09/28/21 21:50: POC Glucose 231 H 09/29/21 05:03: WBC 7.8, RBC 4.22 L, Hgb 12.6 L, Hct 35.7 L, MCV 84.6, MCH 29.9, MCHC 35.3, RDW Std Deviation 38.5, RDW Coeff of Pedrito 12.5, Plt Count 213, MPV 10.0, Immature Gran % (Auto) 1.500 H, Neut % (Auto) 66.2, Lymph % (Auto) 19.6, [place] % (Auto) 9.8, Eos % (Auto) 2.6, Baso % (Auto) 0.3, Absolute Neuts (auto) 5.1, Absolute Lymphs (auto) 1.52, Nucleated RBC % 0 09/29/21 05:03: Sodium 144, Potassium 3.7, Chloride 113 H, Carbon Dioxide 23.0, Anion Gap 8, BUN 7, Creatinine 1.68 H, Estim Creat Clear Calc 53.77, Est GFR (MDRD) Af Amer 56 L, Est GFR (MDRD) Non-Af 46 L, BUN/Creatinine Ratio 4.2 L, Glucose 145 H, Calcium 8.0 L 09/29/21 05:10: POC Glucose 146 H D/C Instructions Discharge Diet: Carb Control Diet Call your doctor if you observe: Fever of 101 or Higher, Shortness of breath, Dizziness, Fainting spells, Swelling in the ankles, Chest pain and Increased palpitations (irregular heartbeat) Meaningful Use Info Meaningful Use Diagnoses (Choose all that apply): None applicable Discharge Plan Admission Admit Date/Time: 09/23/21 14:20 Attending Provider: Jameson Cannon Primary Care Provider: Rebecca Britton NP Consulting Providers: Yue Tamez Discharge Orders/Prescriptions Prescriptions: New hydralazine 25 mg Tablet 25 mg PO TID Qty: 90 RF: 0 insulin glargine 100 unit/mL (3 mL) insulin pen 45 unit subcut BID Qty: 15 RF: 0 insulin lispro [Humalog KwikPen Insulin] 100 unit/mL Insulin Pen 15 unit subcut TIDAC Qty: 15 RF: 0 amlodipine 10 mg tablet 10 mg PO DAILY Qty: 30 RF: 0 Continued loratadine 10 MG tablet 10 mg PO DAILY PRN (Reason: allergies) RF: 0 glipizide 10 mg tablet 10 mg PO DAILY RF: 0 Discontinued losartan 100 MG tablet 100 mg PO DAILY RF: 0 Referrals / Follow Up: Yue Tamez MD [STAFF PHYSICIAN] - Within 1 Month Freddie Dean MD [STAFF PHYSICIAN] - Within 1 Month Rebecca Britton NP, [facility] [Primary Care Provider] - Within 1 Week Disposition Disposition (needs filled in before D/C Order can be placed): Home, Self Care Charges/Coding Visit Charges Inpatient E&M: [id number] [facility]
--- NOTE | 2021-09-29 10:23 | PN.RENAL_ITS ---
Subjective Subjective no new events Objective Data Objective Data Vital Signs: Vital Signs Temp Pulse Resp BP Pulse Ox 98.0 F 79 18 144/82 H 98 09/29/21 09:17 09/29/21 09:17 09/29/21 09:17 09/29/21 09:17 09/29/21 09:17 Oxygen Delivery Method Room Air Weight: 96.1 kg Body Mass Index (BMI) 29.6 Intake & Output: Intake and Output for Last 24 Hours 09/27/21 09/28/21 09/29/21 23:59 23:59 23:59 Intake Total 7718.34 / 7718.34 6420 / 6900 1720 / 1720 Output Total 3450 / 3450 3525 / 4525 1700 / 1700 Balance 4268.34 / 4268.34 2895 / 2375 Lab / Micro Data Result Diagrams: 09/29/21 05:03 09/29/21 05:03 Labs: Laboratory Results - last 24 hr 09/28/21 12:40: POC Glucose 263 H 09/28/21 16:53: POC Glucose 187 H 09/28/21 21:50: POC Glucose 231 H 09/29/21 05:03: WBC 7.8, RBC 4.22 L, Hgb 12.6 L, Hct 35.7 L, MCV 84.6, MCH 29.9, MCHC 35.3, RDW Std Deviation 38.5, RDW Coeff of Pedrito 12.5, Plt Count 213, MPV 10.0, Immature Gran % (Auto) 1.500 H, Neut % (Auto) 66.2, Lymph % (Auto) 19.6, [place] % (Auto) 9.8, Eos % (Auto) 2.6, Baso % (Auto) 0.3, Absolute Neuts (auto) 5.1, Absolute Lymphs (auto) 1.52, Nucleated RBC % 0 09/29/21 05:03: Sodium 144, Potassium 3.7, Chloride 113 H, Carbon Dioxide 23.0, Anion Gap 8, BUN 7, Creatinine 1.68 H, Estim Creat Clear Calc 53.77, Est GFR (MDRD) Af Amer 56 L, Est GFR (MDRD) Non-Af 46 L, BUN/Creatinine Ratio 4.2 L, Glucose 145 H, Calcium 8.0 L 09/29/21 05:10: POC Glucose 146 H Physical Exam Narrative Exam minimize due to Covid Assessment & Plan Assessment/Plan (1) Acute kidney injury: PLAN: Baseline serum creatinine is 0.8 mg/dL. The patient has no prior history of CKD. MONE was initially due to decreased effective blood volume in the setting of COVID-19 infection and DKA. MONE is now likely due to ischemic ATN. Fractional secretion of sodium from 09/25/2021 was greater than 1%. Creatinine trending down (2) Metabolic acidosis: PLAN: The patient initially had high anion gap metabolic acidosis presumably due to DKA. However, anion gap has closed, but acidosis has persisted. The patient denies diarrhea or loose bowel movement. Acidosis is likely due to MONE at this point. Bicarbonate is better. Off all IV fluids (3) Essential hypertension: PLAN: Continue to hold losartan for now because of MONE. Amlodipine was started on 09/25/2021 instead. (4) Hypokalemia: PLAN: better (5) Type 2 diabetes mellitus: PLAN: Glycemic control as per hospital medicine service. (6) COVID-19: PLAN: Appears to be improving. Management as per primary service.
--- NOTE | 2021-09-29 10:35 | CASEMGMT ---
Addendum entered by Srinivasa Araujo 09/29/21 11:09: Per Omid in [facility] Retail pharmacy, Basiglar insulin (long-acting) is preferable brand of insulin per pt's insurance and they do not have Basiglar insulin in stock--it will be available tomorrow afternoon. RNAnn Marie, to send insulin pens home w/pt that he has been using while @ [facility] to use @ home until insulin available in retail pharmacy. TC to pt and this was explained to him. He voices understanding and denies having any questions. Original Note: SHOBHA GRIMES NOTE: Pt discharging home today and will be going home on insulin. Nursing has been providing education on insulin admin and self-injection, but pt has been having some difficulty w/injections. Per Ann Marie RN, pt able to self-administer insulin this AM w/[id number]-[id number] instructions. SHOBHA GRIMES placed call to pt's room. Pt informs this nurse he is starting to feel more comfortable w/insulin admin and feels comfortable d/c'ing home. Discussed CCN. Pt states he is interested in further/on-going diabetic and insulin teaching and agreeable to CCN referral. Order placed. TC to Delroy @ [facility] and she was notified. Dmitry REAGAN RN, CM
[2021-09-29] MEDS: Insulin Lispro 100 UNIT/ML INSULN.PEN SC (11:42)
[2021-09-29 15:21] LABS: Bedside Glucose 200 mg/dL (70-110)
--- NOTE | 2021-10-20 08:51 | CCN.REFER ---
MULTIPLE CALLS TO PATIENT W/ NO RETURNED CALL.
== END 2021-09-29 13:50 | disposition home or self-care (01) | DRG 637 ==
LOC: ED 13:40 → ICU 15:03 → MS2 09-25 15:00
PROVIDERS: Internal Medicine; Internal Medicine Nephrology; Emergency Provider Emergency Medicine; PCP Nurse Practitioner Family; Visit Provider Family Medicine
DX: E11.10 Type 2 diabetes mellitus with ketoacidosis without coma (principal); U07.1 COVID-19; J12.82 Pneumonia due to coronavirus disease 2019; G93.41 Metabolic encephalopathy; N17.0 Acute kidney failure with tubular necrosis; N18.31 Chronic kidney disease, stage 3a; I12.9 Hypertensive chronic kidney disease with stage 1 through stage 4 chronic kidney disease, or unspecified chronic kidney disease; E87.6 Hypokalemia; J30.9 Allergic rhinitis, unspecified; E66.9 Obesity, unspecified; Z68.30 Body mass index [BMI] 30.0-30.9, adult; E86.0 Dehydration; D69.6 Thrombocytopenia, unspecified; Z28.3 Underimmunization status; E11.22 Type 2 diabetes mellitus with diabetic chronic kidney disease; F17.210 Nicotine dependence, cigarettes, uncomplicated; Z83.3 Family history of diabetes mellitus; Z96.649 Presence of unspecified artificial hip joint
CPT/HCPCS: 36415; 71045; 80048; 80053; 81001; 82009; 82436; 82570; 82962; 83036; 83735; 84133; 84300; 85025; 94762; 99285; J7030; J7050; A4216; J0610; J2405; J7799

== ENCOUNTER → 2021-10-07 14:41 | Outpatient (CLI) | payer OTHER, SELFPAY ==
[2021-10-07 15:21] LABS: Anion Gap 9 (5-15); BUN 35 mg/dL (7-18); BUN/Creat Ratio 21.9 RATIO (10-20); Calcium,Total 9.9 mg/dL (8.5-10.1); Chloride 89 mmol/L (98-107); EST Glomerular Filtration Rate 49 mL/min (>60); Est Glom Filt Rate - Afr Amer 59 mL/min (>60); Glucose 519 mg/dL (74-106); Potassium 4.2 mmol/L (3.5-5.1); Sodium Level 128 mmol/L (136-145)
== END ==
PROVIDERS: PCP Nurse Practitioner Family; Referring Provider Nurse Practitioner Family; Visit Provider Nurse Practitioner Family
DX: N17.9 Acute kidney failure, unspecified (principal)
CPT/HCPCS: 36415; 80048

== ENCOUNTER 2023-11-13 02:46 | Emergency (ER) | payer MEDICAID, SELFPAY ==
[2023-11-13 02:47] VITALS: BP 182/110; BP 209/109; PULSE 105; PULSE 108; RESP 18; RESP 19; TEMP 37.5; O2SAT 93; O2SAT 95; BMI 29.2
[2023-11-13 03:05] LABS: Absolute Lymphocyte Count 1.99 X10^3/uL (0.83-4.51); Absolute Neutrophil Count 16.4 X10^3/uL (2.0-7.7); Basophil# 0.08 X10^3/uL; Basophil% 0.4 % (0-1); Eosinophil# 0.28 X10^3/uL; Eosinophils% 1.4 % (0-5); Hematocrit 47.2 % (40-54); Lymphocyte # 1.99 X10^3/ul (0.83-4.51); Lymphocyte % 9.8 % (19-41); Mean Corp Hgb Conc 33.9 g/dL (32-36); Mean Corpuscular Hgb 29.2 pg (27.0-32.0); Mean Corpuscular Volume 86.1 fL (80-94); Mean Platelet Vol. 8.9 fl (6.2-12.0); Monocyte# 1.41 X10^3/uL; NRBC Flagged by Analyzer 0 % (0-5); Neutrophil # 16.35 X10^3/uL (2.7-7.7); Neutrophil % 80.9 % (47-70); Platelet Count 347 K/mm3 (150-450); RBC Distribution Width CV 13.1 % (11.6-14.6); RBC Distribution Width SD 40.9 fl (35.1-43.9); Red Blood Count 5.48 M/mm3 (4.6-6.2); White Blood Count 20.2 K/mm3 (4.4-11.0)
[2023-11-13] MEDS: Ondansetron 4 MG/2 ML Vial IV (03:11)
[2023-11-13] MEDS: 0.9% Normal Saline (1000mL) 1,000 ML 999 ML IV ×2 (03:11→04:08)
[2023-11-13 03:18] LABS: Bacteria 0 SEEN /hpf (None Seen); Mucous, Urine 0 SEEN /hpf (<or=2+); Red Blood Cells-Urine 0 SEEN /hpf (0-5); Squamous Epithelial Cells - UA 0 SEEN /hpf (0-5); White Blood Cells 0 SEEN /hpf (0-5)
[2023-11-13 03:19] LABS: Color, Urine Yellow (Yellow); Glucose, Dipstick Normal (Normal); Ketone-Dipstick Negative (Negative); Leukocyte Esterase-Dipstick Negative /ul (Negative); Nitrite-Dipstick Negative (Negative); Occult Blood-Urine 10 /ul (Negative); Protein-Dipstick 100 mg/dl (Negative); Specific Gravity, Urine 1.015 (1.002-1.030); Urine Clarity Clear (Clear); Urine Urobilinogen 4 mg/dl (Normal)
[2023-11-13 03:24] LABS: Urine Bilirubin Dipstick 1 mg/dL (Negative)
[2023-11-13 03:25] LABS: ALB/GLOB Ratio 0.8 RATIO (0.9-2.4); AST(SGOT) 12 U/L (15-37); Alanine Aminotransfer ALT/SGPT 12 U/L (16-61); Albumin, Serum 3.7 g/dL (3.2-5.0); Alkaline Phosphatase 88 U/L (45-117); Anion Gap 5 (5-15); BUN 6 mg/dL (7-18); BUN/Creat Ratio 6.9 RATIO (10-20); Calcium,Total 9.4 mg/dL (8.5-10.1); Chloride 103 mmol/L (98-107); Creatinine, Serum 0.86 mg/dL (0.70-1.30); EST Glomerular Filtration Rate 99 mL/min (>60); Est Glom Filt Rate - Afr Amer 120 mL/min (>60); Estimated Creatinine Clearance 113.81 ml/min; Globulin 4.5 g/dL (2.2-4.2); Glucose 151 mg/dL (74-106); Magnesium 2.1 mg/dL (1.6-2.6); Potassium 3.7 mmol/L (3.5-5.1); Protein, Total 8.2 g/dL (6.4-8.2); Sodium Level 132 mmol/L (136-145); Troponin-I HS 20 pg/mL (3.0-78.0)
[2023-11-13 03:32] LABS: Bedside Glucose 152 mg/dL (74-106)
--- OUTSIDE RECORDS SUMMARY | 2023-11-13 03:37 | XMS RPT_ITS | CCD ---
Author Name Unknown Address [address] [place] [address] Organization [facility] Care Team Providers Care Cad Designer Drafter Name Role Phone PATRICIA URIOSTEGUI Primary Care Physician Medications Current Medications Medication Drug Class(es) Dates Sig (Normalized) Sig (Original) amLODIPine 10 mg oral tablet (1 source) Dihydropyridine Calcium Channel Balta Start: 08-06-2021 amLODIPine 10 mg oral tablet Dose : 10 mg = 1 tab(s), Oral, qDay, 0 Refill(s) Start Date: 08/06/21 Status: Ordered Blood Glucose Test Machine (1 source) Start: 05-01-2019 Blood Glucose Test Machine See Instructions, Use as directed Brand type per insurance or patient preference, # 1 EA, 0 Refill(s), Pharmacy: [facility]/pharmacy #[id number] Start Date: 05/01/19 Status: Ordered glipiZIDE 10 mg oral tablet (1 source) Sulfonylurea Start: 10-12-2021 glipiZIDE 10 mg oral tablet Dose : 10 mg = 1 tab(s), Oral, qDay, 0 Refill(s) Start Date: 10/12/21 Status: Ordered hydrALAZINE hydrochloride 25 mg oral tablet (1 source) Arteriolar Vasodilator Start: 10-12-2021 hydrALAZINE 25 mg oral tablet Dose : 25 mg = 1 tab(s), Oral, TID, 0 Refill(s) Start Date: 10/12/21 Status: Ordered insulin glargine 100 unt/ml injectable solution (1 source) Insulin Analog Start: 10-12-2021 End: 11-11-2021 inject 1 dose by subcutaneous injection once daily Basaglar KwikPen 100 units/mL subcutaneous solution Dose : 20 unit(s) =, Subcutaneous, qDay, # 6 mL, 0 Refill(s), other reason (Rx) Start Date: 10/12/21 Stop Date: 11/11/21 Status: Ordered metFORMIN hydrochloride 500 mg oral tablet (1 source) Biguanide Start: 10-27-2021 End: 12-26-2021 metFORMIN 500 mg oral tablet (IR) Dose : 1,000 mg = 2 tab(s), Oral, BID, # 120 tab(s), 1 Refill(s), Pharmacy: [facility], 176.5, cm, 10/12/21 9:03:00 EST, Height, kg, 10/12/21 9:03:00 EST, Dosing Weight Start Date: 10/27/21 Stop Date: 12/26/21 Status: Ordered Completed/Discontinued Medications Medication Drug Class(es) Dates Sig (Normalized) Sig (Original) 0.5 ml dulaglutide 1.5 mg/ml auto-injector (1 source) GLP-1 Receptor Agonist Start: 10-13-2021 inject 0.5 mL by subcutaneous injection every week Trulicity Pen 0.75 mg/0.5 mL subcutaneous solution Dose : 0.75 mg = 0.5 mL, Subcutaneous, qWeek, rotate injection sites, # 2 mL, 3 Refill(s), 0.5 mL/Pen, Pharmacy: [facility], 176.5, cm, 10/12/21 9:03:00 EST, Height, kg, 10/12/21 9:03:00 EST, Dosing Weight Start Date: 10/13/21 Status: Ordered Problems Problem Classification Problem Date Documented Date Episodic/Chronic Allergic reactions (1 source) Allergic condition 04-16-2021 Episodic Crushing injury or internal injury (1 source) Injury of kidney 10-06-2021 Episodic Diabetes mellitus with complications (1 source) Diabetic ketoacidosis 10-06-2021 Chronic Diabetes mellitus without complication (1 source) Type 2 diabetes mellitus 05-22-2019 Chronic Disorders of lipid metabolism (1 source) Hypertriglyceridemia 07-05-2019 Chronic Essential hypertension (1 source) Hypertensive disorder 05-01-2019 Chronic Viral infection (1 source) Disease caused by 2019-nCoV 10-06-2021 Results Test Name Value Interpretation Reference Range Facil ity Encounters Encounter Date Encounter Type Care Provider Facility Start: 10-28-2021 End: 10-28-2021 Patient encounter procedure PATRICIA LOPEZ RADIOLOGY EQUIPMENT SERVICER-TOUR DRIVER [facility] Procedures Date Procedure Procedure Detail Performing Clinician Start: 04-09-2012 History of operative procedure on hip PATRICIA LOPEZ RADIOLOGY EQUIPMENT SERVICER-TOUR DRIVER Social History Date Type Detail Facility Start: 07-23-2021 Ex-smoker (finding) [facility] Sex Assigned At Male [facility] Medical Equipment Procedure Code Equipment Code Equipment Origin al Text Equipment Identifier Dates Blood Glucose Te st Strips Start: 05-01-2019 Evaluation + Plan note 10-23-2021 Laboratory Note Date & Type Note Facility 10-23-2021 Evaluation + Plan note Future Scheduled [id number] Hemoglobin 10/23/21Lipid Profile 10/23/21Complete Metabolic Panel 10/23/21 [facility] Hospital course Narrative Note Date & Type Note Facility Hospital course Narrative No data available for this section [facility] Hospital Discharge instructions Note Date & Type Note Facility Hospital Discharge instructions No data available for this section [facility] Summary Purpose Family History No Family History Records FoundNo Family History Records Found Advance Directives No Advanced Directives Records FoundNo Advanced Directives Records Found Additional Source Comments (unrecognized sect ion and content) No Status Records FoundNo Status Records Found INFORMATION SOURCE (unrecogn ized section and content) DATE CREATED AUTHOR AUTHOR'S ORGANIZ ATION 12/26/2019 [facility] alyson Wright FOR RECORDS PERTAINING TO PATIENTS WHO ARE OR HAVE BEEN ENROLLED IN A CHEMICAL DEPENDENCY/SUBSTANCEABUSE PROGRAM, SOME INFORMATION MAY BE OMITTED. This clinical summary was aggregated from multiple sources. Caution should be exercised in using it in the provision of clinical care. This summary normalizes information from multiple sources, and as a consequence, information in this document may materially change the coding, format and clinical context of patient data. In addition, data may be omitted in some cases. CLINICAL DECISIONS SHOULD BE BASED ON THE PRIMARY CLINICAL RECORDS. [facility]. provides no warranty or guarantee of the accuracy or completeness of information in this document.
[2023-11-13 03:52] VITALS: BP 162/116; PULSE 99; RESP 20; TEMP 37.2; O2SAT 92
--- NOTE | 2023-11-13 03:57 | ED.VIS.GI ---
HPI HPI - GI History of Present Illness Chief Complaint: Cold Sx Narrative Narrative: 52-year-old male with history of type 1 diabetes, hypertension presenting with nausea, vomiting, chills times the last 3 weeks. Patient states at times he gets headaches. He states that he will get the chills with just movement in bed. He notes that when he sleeps at night he starts to shake. Patient has not had a known fever at home. He has checked. Denies chest pain or shortness of breath. He is a smoker but does not feel like he is wheezing or tight. Patient states that last time he was seen in the hospital he had COVID-19 and was in ketoacidosis. Since that time he was discharged home with medications. He has not seen his primary care physician. He states that all his medications just come in the mail and he does not have to see a doctor. Patient states that the blood pressure medicine he was started on before he tapered off of because it was making him feel lightheaded. He has not been on this in years. Patient states he has not been able to hold down much food but has been holding down water and electrolyte drinks. He admits to some weight loss which he thinks might be near 11 pounds. Patient denies abdominal pain. He has been using [id number] medications for acid reflux and has had this in the past to treat his symptoms but this is not helping either. [facility] Medical History Arthritis COVID-19 DKA (diabetic ketoacidoses) Essential hypertension History of type 2 diabetes mellitus Hypertension Type 2 diabetes mellitus Home Medications loratadine 10 mg tablet 10 mg PO DAILY PRN allergies 09/22/21 [History Last Taken Unknown] amlodipine 10 mg tablet 10 mg PO DAILY #30 tabs 09/29/21 [Rx Last Taken Unknown] insulin glargine 100 unit/mL (3 mL) subcutaneous pen 45 unit (0.45 mL) subcut BID #15 mL 09/29/21 [Rx Last Taken Unknown] insulin lispro 100 unit/mL subcutaneous pen (Humalog KwikPen (U-100) Insulin) 15 unit (0.15 mL) subcut TIDAC #15 mL 09/29/21 [Rx Last Taken Unknown] dulaglutide 3 mg/0.5 mL subcutaneous pen injector (Trulicvan [facility]) 3 mg subcut QWEEK 11/13/23 [History Last Taken Unknown] levofloxacin 500 mg tablet 500 mg PO DAILY #7 tabs 11/13/23 [Rx Last Taken Unknown] losartan PO 11/13/23 [History Last Taken Unknown] metformin 500 mg tablet 500 mg PO BID 11/13/23 [History Last Taken Unknown] omeprazole 40 mg capsule,delayed release 40 mg PO DAILY #30 caps 11/13/23 [Rx Last Taken Unknown] ondansetron 4 mg disintegrating tablet 4 mg PO Q8H PRN PRN Nausea #20 tabs 11/13/23 [Rx Last Taken Unknown] sertraline 100 mg tablet 100 mg PO Q24H 11/13/23 [History Last Taken Unknown] Allergy/AdvReac Type Severity Reaction Status Date / Time No Known Allergies Allergy Verified 09/23/21 11:18 Family History Other Diabetes Surgical History History of hip replacement Social History Smoking Status: Heavy Smoker (>10/day) alcohol intake: current ROS ROS ED Constitutional Constitutional ED: Reports chills and sweats; Denies fever(s) Eyes Eyes: Denies blurry vision or change in vision ENT ENT ED: Denies ear pain or sore throat Cardiovascular Cardiovascular: Denies chest pain, palpitations or racing heartbeat Respiratory/Chest Respiratory/Chest: Denies cough, dyspnea or sputum Gastrointestinal Gastrointestinal: Reports nausea and vomiting; Denies abdominal pain, constipation or diarrhea Genitourinary Genitourinary ED: Denies dysuria, hematuria or urinary frequency Musculoskeletal Musculoskeletal: Denies arthralgias, myalgias or neck pain Integumentary Denies abscess, Abrasions or rash Neurologic Neurologic: Denies headache(s), paresthesias or weakness Psychiatric Psychiatric: Denies anxiety, depression, suicidal ideation or suicidal thoughts Endocrine Endocrinology: Denies polydipsia or polyuria EXAM Physical Exam Const Vital Signs: 11/13/23 02:47 11/13/23 02:53 11/13/23 02:47 Temperature 99.5 F H Temperature Source Oral Pulse Rate 108 H 105 H Respiratory Rate 18 19 H Respiratory Effort Normal Respiratory Pattern Normal Blood Pressure 209/109 H 182/110 H Blood Pressure Mean 142 134 Pulse Ox 95 93 Oxygen Delivery Method Room Air Room Air 11/13/23 03:52 11/13/23 04:00 11/13/23 05:00 Temperature 98.9 F 98.8 F 98.7 F Temperature Source Oral Oral Oral Pulse Rate 99 100 96 Respiratory Rate 20 H 22 H 21 H Respiratory Effort Respiratory Pattern Blood Pressure 162/116 H 171/105 H 142/88 H Blood Pressure Mean 131 127 106 Pulse Ox 92 93 92 Oxygen Delivery Method Room Air Room Air Room Air 11/13/23 06:55 Temperature 98.4 F Temperature Source Pulse Rate 97 Respiratory Rate 23 H Respiratory Effort Respiratory Pattern Blood Pressure 134/78 H Blood Pressure Mean 96 Pulse Ox 94 Oxygen Delivery Method Positive well nourished General Appearance ED: NAD; Negative for pallor HEENT Reports moist mucous membranes normocephalic and atraumatic Eyes PERRL and EOMs intact bilaterally Resp normal respiratory effort Auscultation: Negative for rales, rhonchi or wheezes Cardio regular rhythm Rate: tachycardic Neuro CN's II-XII intact bilaterally Sensorium / Orientation: alert Psych mental status grossly normal Skin no wounds General Skin Exam: Negative for jaundice or pallor MDM MDM MDM Narrative Medical decision making narrative: Patient presenting with multiple complaints including nausea, vomiting, chills, body aches. Differential includes ACS, dehydration, pneumonia, COVID, influenza, RSV, hyperglycemia, hypoglycemia, electrolyte abnormalities. Patient given 4 mg of Zofran IV. He is given 2 L IV fluids. BGT was obtained and is around 150. CBC obtained to assess white blood cell count, hemoglobin, platelets and shows a 20,000 white count with hemoglobin of 16. CMP was obtained and shows normal liver function and electrolytes. Glucose is 151 without anion gap. Sodium 132 but otherwise electrolytes are normal. High-sensitivity troponin is 20. EKG on my interpretation shows sinus tachycardia with a ventricular rate of 103 bpm without sign of ischemic change. Acetone negative. Urinalysis negative for infection. Patient feeling improved after Zofran. Given the patient is tachycardic and has 20,000 white count we did obtain blood cultures, urinalysis, urine cultures and will obtain a chest x-ray. Will continue to monitor. I had a long discussion at the bedside given the patient's medical noncompliance with blood pressure medicine and we will monitor his blood pressure here and he may need to start on new medication for blood pressure. Blood pressure has improved to 134/78 while sitting in the room. PT/INR normal. Lactic acid is normal. Chest x-ray my interpretation shows bilateral lower lobe infiltrates as well as right middle lobe infiltrate. Patient not hypoxic, tachypneic.There is no evidence of DKA. Patient's A1c is actually down to 5.9 which is an improvement. Since his vital signs are normalized and his blood work is reassuring we talked about going home with prescription antibiotics. Will start him on Levaquin. I gave him return precautions. I also counseled him at length to follow-up with his PCP as he has not made follow-up yet. Impression: 1. Pneumonia 2. Nausea/vomiting 3. History of diabetes 4. History of hypertension Lab Data Labs: Laboratory Results - last 24 hr 11/13/23 11/13/23 11/13/23 02:57 03:10 03:13 WBC 20.2 H RBC 5.48 Hgb 16.0 Hct 47.2 MCV 86.1 MCH 29.2 MCHC 33.9 RDW Std Deviation 40.9 RDW Coeff of Pedrito 13.1 Plt Count 347 MPV 8.9 Immature Gran % (Auto) 0.500 Neut % (Auto) 80.9 H Lymph % (Auto) 9.8 L Dukes % (Auto) 7.0 Eos % (Auto) 1.4 Baso % (Auto) 0.4 Absolute Neuts (auto) 16.4 H Absolute Lymphs (auto) 1.99 Nucleated RBC % 0 PT INR Sodium 132 L Potassium 3.7 Chloride 103 Carbon Dioxide 24.0 Anion Gap 5 BUN 6 L Creatinine 0.86 Estim Creat Clear Calc 113.81 Est GFR (MDRD) Af Amer 120 Est GFR (MDRD) Non-Af 99 BUN/Creatinine Ratio 6.9 L Glucose 151 H Hemoglobin A1c 5.9 H Lactic Acid Calcium 9.4 Magnesium 2.1 Total Bilirubin 0.70 AST 12 L ALT 12 L Alkaline Phosphatase 88 Troponin I High Sens 20 Total Protein 8.2 Albumin 3.7 Globulin 4.5 H Albumin/Globulin Ratio 0.8 L Urine Color Yellow Urine Clarity Clear Urine pH 6.0 Ur Specific [place] 1.015 Urine Protein 100 H Urine Glucose (UA) Normal Urine Ketones Negative Urine Occult Blood 10 H Urine Nitrite Negative Urine Bilirubin 1 H Urine Urobilinogen 4 H Ur Leukocyte Esterase Negative Urine RBC 0 SEEN Urine WBC 0 SEEN Ur Squamous Epith Cells 0 SEEN Urine Bacteria 0 SEEN Urine Mucus 0 SEEN Acetone Level NEGATIVE POC Glucose 152 H 11/13/23 04:00 WBC RBC Hgb Hct MCV MCH MCHC RDW Std Deviation RDW Coeff of Ped[place] Plt Count MPV Immature Gran % (Auto) Neut % (Auto) Lymph % (Auto) Dukes % (Auto) Eos % (Auto) Baso % (Auto) Absolute Neuts (auto) Absolute Lymphs (auto) Nucleated RBC % PT 14.0 INR 1.1 Sodium Potassium Chloride Carbon Dioxide Anion Gap BUN Creatinine Estim Creat Clear Calc Est GFR (MDRD) Af Amer Est GFR (MDRD) Non-Af BUN/Creatinine Ratio Glucose Hemoglobin A1c Lactic Acid 0.8 Calcium Magnesium Total Bilirubin AST ALT Alkaline Phosphatase Troponin I High Sens Total Protein Albumin Globulin Albumin/Globulin Ratio Urine Color Urine Clarity Urine pH Ur Specific [place] Urine Protein Urine Glucose (UA) Urine Ketones Urine Occult Blood Urine Nitrite Urine Bilirubin Urine Urobilinogen Ur Leukocyte Esterase Urine RBC Urine WBC Ur Squamous Epith Cells Urine Bacteria Urine Mucus Acetone Level POC Glucose Radiography Diagnostic Testing: Clinical Impression(s) from Imaging Studies Chest X-Ray 11/13/23 04:30 IMPRESSION: Infiltrates in right mid lung field and bilateral lower lung bach, suspicious for pneumonia. Electronically Signed: Handy Brannon MD at 5:02 EST Reading Location ID and State: [facility] / [place] , Service support , Discharge Plan Triage Chief Complaint: Cold Sx Other Complaint: Nausea/Vomiting ED Provider: Joel Rodriguez Dx/Rx/DC Orders Instructions: ED Pneumonia (Adult), ED Vomiting (Adult) Prescriptions: New levofloxacin 500 mg tablet 500 mg PO DAILY Qty: 7 0RF omeprazole 40 mg capsule,delayed release(DR/EC) 40 mg PO DAILY Qty: 30 0RF ondansetron 4 mg tablet,disintegrating 4 mg PO Q8H PRN PRN (Reason: Nausea) Qty: 20 0RF No Action loratadine 10 MG tablet 10 mg PO DAILY PRN (Reason: allergies) insulin glargine 100 unit/mL (3 mL) insulin pen 45 unit subcut BID Qty: 15 0RF insulin lispro [Humalog KwikPen Insulin] 100 unit/mL Insulin Pen 15 unit subcut TIDAC Qty: 15 0RF amlodipine 10 mg tablet 10 mg PO DAILY Qty: 30 0RF Patient Comments: DOES NOT CURRENTLY TAKE 11/13/2023 metformin 500 mg tablet 500 mg PO BID sertraline 100 mg tablet 100 mg PO Q24H Trulicity 3 mg/0.5 mL pen injector 3 mg SUBCUT QWEEK Patient Comments: INJECT 0.5 ML SUBCUTANEOUS EVERY WEEK FOR 90 DAYS - ROTATE INJECTION SITES losartan PO Primary Care Provider: Rebecca Britton NP Referrals: Rebecca Britton NP, [facility] [Primary Care Provider] - Disposition Disposition: Home, Self Care Discharge Date/Time: 11/13/23 07:04
[2023-11-13 04:00] VITALS: BP 171/105; PULSE 100; RESP 22; TEMP 37.1; O2SAT 93
[2023-11-13 04:21] LABS: International Normalized Ratio 1.1
--- NOTE | 2023-11-13 04:30 | RAD_ITS ---
EXAM: XR CHEST, 1 VIEW CLINICAL INDICATION: fever fever TECHNIQUE: Frontal view of the chest. COMPARISON: Chest x-ray 09/23/2021. FINDINGS: LUNGS AND PLEURAL SPACES: There are non-dense patchy airspace infiltrates in the right mid and lower lung bach as well as the medial left lower lung bach, which are likely to represent early pneumonia. No pneumothorax. No effusion. HEART: Unremarkable. Cardiac silhouette not enlarged. MEDIASTINUM: Central airways and mediastinal contour are unremarkable. BONES/JOINTS: Unremarkable. No acute fracture. SOFT TISSUES: Unremarkable. RAD/Chest 1 View (Portable) IMPRESSION: Infiltrates in right mid lung field and bilateral lower lung bach, suspicious for pneumonia. Electronically Signed: Handy Brannon MD at 5:02 EST Reading Location ID and State: [facility] / [place] , Service support ,
[2023-11-13 04:52] LABS: Lactic Acid 0.8 mmol/L (0.4-1.9)
[2023-11-13 05:00] VITALS: BP 142/88; PULSE 96; RESP 21; TEMP 37.1; O2SAT 92
[2023-11-13 06:55] VITALS: BP 134/78; PULSE 97; RESP 23; TEMP 36.9; O2SAT 94
[2023-11-13] MEDS: levoFLOXacin 500 MG Tablet PO (06:59)
[2023-11-13 07:22] LABS: Hemoglobin A1c 5.9 % (3.8-5.6)
== END 2023-11-13 07:04 | disposition home or self-care (01) ==
PROVIDERS: Emergency Provider Student in an Organized Health Care Education/Training Program; PCP Nurse Practitioner Family; Visit Provider Student in an Organized Health Care Education/Training Program
DX: J18.9 Pneumonia, unspecified organism (principal); E11.9 Type 2 diabetes mellitus without complications; I10 Essential (primary) hypertension; R11.2 Nausea with vomiting, unspecified; F17.210 Nicotine dependence, cigarettes, uncomplicated; Z86.16 Personal history of COVID-19; Z79.899 Other long term (current) drug therapy
CPT/HCPCS: 71045; 80053; 81001; 82009; 82962; 83036; 83605; 83735; 84484; 85025; 85610; 87040; 87086; 87088; 87631; 93005; 96361; 96374; 99285; J7030; A4216; J2405